=== PATIENT | female | born 1945 | race Hispanic/Latino ===

== ENCOUNTER 2017-03-31 18:43 | Inpatient (IN) | payer MEDICARE, OTHER ==
--- NOTE | 2017-03-31 19:45 | ED PDOC ---
Arrival/HPI - General Historian: Patient, Family - History of Present Illness Time/Duration: 1 week Symptom Onset: Gradual Symptom Course: Worsening - General Chief Complaint: Psychiatric Evaluation Time Seen by Provider: 03/31/17 18:46 - History of Present Illness Narrative History of Present Illness (Text): 03/31/17 19:38 This is a 72 year old female with PMHX CHF with low EF, hypertension, diabetes, COPD, hyperlipidemia who comes in for evaluation of visual hallucinations. The hallucinations began one week ago but have since worsened. Patient complaining of unspecified entities coming to the back of her recliner and hitting that area. Patient also has intermittent unintelligible auditory hallucinations. Patient complaining of dry cough and chronic urinary frequency. Patient denies any recent fever, chills, abdominal pain, dysuria. Patient complaining of headache localized around the top of her head. Patient states that she recently began a new medication for her diabetic neuropathy by her PMD Dr. Sawyer Vicente. She began the drug a couple of weeks ago. Patient has never experienced hallucinations in the past prior to this. Per patient and her sister, yesterday they went to [facility] stand- alone ER in [place] where she was transferred to [facility] for psychiatric evaluation. The patient's sister states that the psychiatrist told the staff to discharge her from [facility]'s ED. PMH: CHF with low EF, hypertension, diabetes, COPD, hyperlipidemia PSHx: Bilateral cataract surgery Allergies: NKDA Social: Former smoker, quit in 2013. Denies alcohol, drugs. PMD: Dr. Sawyer Vicente ([facility]) Past Medical History - Provider Review Nursing Documentation Reviewed: Yes - Infectious Disease Hx of Infectious Diseases: None - Tetanus Immunization Tetanus Immunization: Unknown - Cardiac Hx Cardiac Disorders: Yes Hx Circulatory Problems: Yes Hx Congestive Heart Failure: Yes Hx Hypertension: Yes - Pulmonary Hx Respiratory Disorders: Yes Hx Bronchitis: Yes Hx Chronic Obstructive Pulmonary Disease (COPD): Yes Hx Pneumonia: Yes - Neurological Hx Neurological Disorder: Yes - HEENT Hx HEENT Disorder: Yes (H/O OF EAR INFECTION RIGHT,PERFORATED EARDRUM) Hx Deafness: Yes (MORE ON LEFT) - Renal Hx Renal Disorder: No - Endocrine/Metabolic Hx Endocrine Disorders: No Hx Hypothyroidism: Yes - Hematological/Oncological Hx Blood Disorders: No - Integumentary Hx Dermatological Disorder: No - Musculoskeletal/Rheumatological Hx Falls: Yes - Gastrointestinal Hx Gastrointestinal Disorders: Yes (GASTRITIS) - Genitourinary/Gynecological Hx Genitourinary Disorders: No - Psychiatric Hx Psychophysiologic Disorder: No (SMOKES 1.5PPD) Hx Depression: Yes Hx Emotional Abuse: No Hx Physical Abuse: No Hx Substance Use: No - Surgical History Hx Cardiac Catheterization: Yes - Anesthesia Hx Anesthesia: Yes Hx Anesthesia Reactions: No Hx Malignant Hyperthermia: No - Suicidal Assessment Feels Threatened In Home Enviroment: No Family/Social History - Physician Review Nursing Documentation Reviewed: Yes Family/Social History: Unknown Family HX Smoking Status: Former Smoker Hx Alcohol Use: No Hx Substance Use: No Allergies/Home Meds Allergies/Adverse Reactions: Allergies No Known Allergies Allergy (Verified 08/05/16 19:51) Home Medications: Home Meds Medication Instructions Recorded Confirmed Unobtainable 08/05/16 03/31/17 Review of Systems - Physician Review All systems were reviewed & negative as marked: Yes - Review of Systems Constitutional: Normal. absent: Fevers Eyes: Normal ENT: Normal Respiratory: Cough (dry). absent: SOB Cardiovascular: Normal. absent: Chest Pain Gastrointestinal: Normal. absent: Abdominal Pain Genitourinary Female: Normal, Frequency (chronic). absent: Dysuria Musculoskeletal: Normal Skin: Normal Neurological: Headache (localized on top of the head) Endocrine: Normal Hemo/Lymphatic: Normal Psychiatric: Other (visual and auditory hallucinations) Physical Exam Vital Signs Reviewed: Yes Temperature: Afebrile Blood Pressure: Hypotensive Pulse: Regular Respiratory Rate: Normal Appearance: Positive for: Comfortable Pain Distress: None Mental Status: Positive for: Alert and Oriented X 3, other (actively hallucinating) - Systems Exam Head: Present: Atraumatic, Normocephalic Pupils: Present: Sluggish Extroacular Muscles: Present: EOMI Conjunctiva: Present: Normal Mouth: Present: Moist Mucous Membranes Neck: Present: Normal Range of Motion Respiratory/Chest: Present: Clear to Auscultation, Good Air Exchange. No: Accessory Muscle Use Cardiovascular: Present: Regular Rate and Rhythm, Normal S1, S2 Abdomen: Present: Normal Bowel Sounds. No: Tenderness, Distention Back: No: CVA Tenderness Upper Extremity: Present: Normal Inspection, NORMAL PULSES. No: Edema Lower Extremity: Present: Edema (bilateral), NORMAL PULSES, Other (chronic venous stasis changes bilaterally). No: CALF TENDERNESS Neurological: Present: GCS=15, CN II-XII Intact Skin: Present: Warm, Dry. No: Rashes Psychiatric: Present: Alert, Oriented x 3, Hallucinations Vital Signs Temp Pulse Resp BP Pulse Ox 03/31/17 19:32 97.8 F 79 18 93/58 L 99 Medical Decision Making ED Course and Treatment: 03/31/17 21:02 Patient Seen With Resident: In agreement with resident note and more details are present in their notes. Patient was seen and evaluated with resident, came up with plan and treatment together. (Anshu He DO) 03/31/17 19:54 CBC, CMP, Urinalysis, urine cultures, serum alcohol, Urine Drug Screen, Troponin I, EKG, Portable Chest X-ray, CT Head w.o. contrast Portable Chest X-ray: IMPRESSION: No focal consolidation, significant pleural effusion, or definite pneumothorax identified. EKG showing sinus rhythm with 1st degree AV block. Blunting of the T-waves. No ST segment elevation or depression. 1st degree AV block is also noted on EKG from prior visit. 03/31/17 22:48 CT Head w.o. contrast: IMPRESSION: No acute intracranial hemorrhage, or suspicious mass effect. Given Kdurr 40 mEQ for hypokalemia. (Jordan Calle) - Lab Interpretations Lab Results: 03/31/17 19:50 03/31/17 19:50 Lab Results 03/31/17 19:50: Alcohol, Quantitative < 10 03/31/17 19:50: Sodium 139, Potassium 3.2 L, Chloride 102, Carbon Dioxide 26, Anion Gap 14, BUN 14, Creatinine 0.9, Est GFR ( Amer) > 60, Est GFR (Non- Af Amer) > 60, Random Glucose 165 H, Calcium 9.0, Total Bilirubin 0.7, AST 81 H , ALT 76 H, Alkaline Phosphatase 110, Troponin I 0.01 D, Total Protein 6.6, Albumin 3.8, Globulin 2.8, Albumin/Globulin Ratio 1.4 03/31/17 19:50: WBC 6.6 D, RBC 3.96, Hgb 12.3, Hct 36.3, MCV 91.7, MCH 31.1, MCHC 33.9, RDW 13.9, Plt Count 227, MPV 10.1, Gran % 78.6 H, Lymph % (Auto) 13.0 L, [place] % (Auto) 6.4 H, Eos % (Auto) 1.7, Baso % (Auto) 0.3, Gran # 5.20, Lymph # 0.9 L, [place] # 0.4, Eos # 0.1, Baso # 0.02 - RAD Interpretation Radiology Orders: 03/31/17 19:32 HEAD W/O CONTRAST [CT] Stat CHEST PORTABLE [RAD] Stat - Medication Orders Current Medication Orders: Sodium Chloride (Sodium Chloride 0.9%) 1,000 mls @ 100 mls/hr IV .Q10H GENESIS Discontinued Medications Potassium Chloride (K-Dur 20 Meq Er Tab) 40 meq PO STAT STA Stop: 03/31/17 20:40 Disposition/Present on Arrival - Present on Arrival Any Indicators Present on Arrival: No History of DVT/PE: No History of Uncontrolled Diabetes: No Urinary Catheter: No History of Decub. Ulcer: No History Surgical Site Infection Following: None - Disposition Have Diagnosis and Disposition been Completed?: Yes Disposition Time: 23:00 - Disposition Diagnosis: Visual hallucinations Condition: UNKNOWN Referrals: Sawyer Vicente MD [Primary Care Provider] - Follow up with primary Forms: [employer] (Micronesian)
--- NOTE | 2017-03-31 20:00 | RAD ---
HISTORY: r/o infiltrate COMPARISON: Chest x-ray performed 08/05/16. TECHNIQUE: Chest, one view. FINDINGS: Examination limited by habitus. LUNGS: No focal consolidation. Please note that chest x-ray has limited sensitivity for the detection of pulmonary masses. PLEURA: No significant pleural effusion identified. No definite pneumothorax . CARDIOVASCULAR: The cardiomediastinal silhouette appears within normal limits of size. OSSEOUS STRUCTURES: No acute osseous abnormality identified. VISUALIZED UPPER ABDOMEN: Unremarkable. OTHER FINDINGS: None. IMPRESSION: No focal consolidation, significant pleural effusion, or definite pneumothorax identified.
[2017-03-31 20:06] LABS: BASO # 0.02 K/mm3 (0.0-2.0); BASO % 0.3 % (0.0-3.0); EOS # 0.1 (0.0-0.7); EOS % 1.7 % (1.5-5.0); GRAN # 5.2 (1.4-6.5); GRAN % 78.6 % (50.0-68.0); HEMATOCRIT 36.3 % (36.0-48.0); LYMPH # 0.9 (1.2-3.4); MEAN CELL VOLUME 91.7 fl (80.0-105.0); MEAN CORPUSCULAR HEMOGLOBIN 31.1 pg (25.0-35.0); MEAN CORPUSCULAR HGB CONC 33.9 g/dl (31.0-37.0); MEAN PLATELET VOLUME 10.1 fl (7.0-11.0); MONO # 0.4 (0.1-0.6); MONO % 6.4 % (1.0-6.0); RED CELL DISTRIBUTION WIDTH 13.9 % (11.5-14.5); WHITE BLOOD COUNT 6.6 10^3/ul (4.5-11.0)
[2017-03-31 20:32] LABS: ALB/GLOB RATIO 1.4 (1.1-1.8); ALKALINE PHOSPHATASE 110 U/L (38-126); ALT/SGPT 76 U/L (7-56); AST/SGOT 81 U/L (14-36); BILIRUBIN,TOTAL 0.7 mg/dL (0.2-1.3); BLOOD UREA NITROGEN 14 mg/dL (7-21); CARBON DIOXIDE 26 mmol/L (21-33); CHLORIDE 102 mmol/L (98-107); GFR AFRICAN-AMERICAN > 60; GLUCOSE,RANDOM 165 mg/dL (70-110); POTASSIUM 3.2 mmol/L (3.6-5.0); SODIUM 139 mmol/L (132-148); TOTAL PROTEIN 6.6 g/dL (5.8-8.3)
[2017-03-31] MEDS ORDERED: Potassium Chloride 20 mEq ER Tab PO STA (20:39)
[2017-03-31 20:51] LABS: TROPONIN I 0.01 ng/mL
[2017-03-31] MEDS: Sodium Chloride 0.9% 1,000 ML IV SCH (22:00)
--- NOTE | 2017-03-31 22:35 | CT ---
EXAM: CT Head Without Intravenous Contrast CLINICAL HISTORY: 72 years old, female; Signs and symptoms; Patient HX: R/O ich TECHNIQUE: Axial computed tomography images of the head/brain without intravenous contrast. All CT scans at this facility use one or more dose reduction techniques, viz.: automated exposure control; ma/kV adjustment per patient size (including targeted exams where dose is matched to indication; i.e. head); or iterative reconstruction technique. COMPARISON: CT - HEAD W/O CONTRAST 08/05/2016 9:01:29 PM FINDINGS: Brain: No acute intracranial hemorrhage. Age-appropriate periventricular white matter disease. No edema. Ventricles: Age-appropriate ventriculomegaly. Bones: No acute displaced fracture. Sinuses: Unremarkable as visualized. No acute sinusitis. Mastoid air cells: Unremarkable as visualized. No mastoid effusion. IMPRESSION: No acute intracranial hemorrhage, or suspicious mass effect.
--- NOTE | 2017-04-01 01:11 | ED PDOC ---
Physical Exam Vital Signs Temp Pulse Resp BP Pulse Ox 04/01/17 01:00 68 18 114/48 L 97 03/31/17 23:00 75 18 117/49 L 98 03/31/17 21:00 77 18 115/58 L 98 03/31/17 19:32 97.8 F 79 18 93/58 L 99 Medical Decision Making ED Course and Treatment: 03/31/17 23:00 Case endorsed to me by Dr. He, pending urinalysis, re-eval, and final disposition. 04/01/17 01:[address] Adonay Vicente, who is aware and agrees with plan. Accepts pt in to his service. Pt will go to remote telemetry observation for AMS.and uti 04/01/17 05:00 - Lab Interpretations Lab Results: 03/31/17 19:50 03/31/17 19:50 Lab Results 04/01/17 01:20: Urine Color Yellow, Urine Appearance Slight-cloudy, Urine pH 6.0 , Ur Specific Saucier 1.020, Urine Protein 30 H, Urine Glucose (UA) Negative, Urine Ketones Trace H, Urine Blood Trace-intact H, Urine Nitrate Positive H, Urine Bilirubin Negative, Urine Urobilinogen 0.2, Ur Leukocyte Esterase Negative , Urine RBC 0 - 2, Urine WBC 1 - 3, Ur Epithelial Cells 0 - 2, Urine Bacteria Many 04/01/17 01:20: Urine Opiates Screen Negative, Urine Methadone Screen Negative, Ur Barbiturates Screen Negative, Ur Phencyclidine Scrn Negative, Ur Amphetamines Screen Negative, U Benzodiazepines Scrn Negative, U Oth Cocaine Metabols Negative, U Cannabinoids Screen Negative 03/31/17 19:50: Alcohol, Quantitative < 10 03/31/17 19:50: Sodium 139, Potassium 3.2 L, Chloride 102, Carbon Dioxide 26, Anion Gap 14, BUN 14, Creatinine 0.9, Est GFR ( Amer) > 60, Est GFR (Non- Af Amer) > 60, Random Glucose 165 H, Calcium 9.0, Total Bilirubin 0.7, AST 81 H , ALT 76 H, Alkaline Phosphatase 110, Troponin I 0.01 D, Total Protein 6.6, Albumin 3.8, Globulin 2.8, Albumin/Globulin Ratio 1.4 03/31/17 19:50: WBC 6.6 D, RBC 3.96, Hgb 12.3, Hct 36.3, MCV 91.7, MCH 31.1, MCHC 33.9, RDW 13.9, Plt Count 227, MPV 10.1, Gran % 78.6 H, Lymph % (Auto) 13.0 L, [place] % (Auto) 6.4 H, Eos % (Auto) 1.7, Baso % (Auto) 0.3, Gran # 5.20, Lymph # 0.9 L, [place] # 0.4, Eos # 0.1, Baso # 0.02 - RAD Interpretation Radiology Orders: 03/31/17 19:32 HEAD W/O CONTRAST [CT] Stat CHEST PORTABLE [RAD] Stat - Medication Orders Current Medication Orders: Acetaminophen (Tylenol 325mg Tab) 650 mg PO Q4H PRN PRN Reason: Pain, Mild (1-3) Sodium Chloride (Sodium Chloride 0.9%) 1,000 mls @ 100 mls/hr IV .Q10H GENESIS Last Admin: 03/31/17 22:00 Dose: 100 mls/hr Ceftriaxone Sodium (Rocephin 1 Gram Ivpb) 1 gm in 100 mls @ 200 mls/hr IVPB STAT STA PRN Reason: Protocol Stop: 04/01/17 02:18 Sodium Chloride (Sodium Chloride 0.9%) 1,000 mls @ 100 mls/hr IV .Q10H STA Stop: 04/01/17 12:10 Discontinued Medications Potassium Chloride (K-Dur 20 Meq Er Tab) 40 meq PO STAT STA Stop: 03/31/17 20:40 Last Admin: 03/31/17 20:00 Dose: 40 meq Disposition/Present on Arrival - Present on Arrival Any Indicators Present on Arrival: No History of DVT/PE: No History of Uncontrolled Diabetes: No Urinary Catheter: No History of Decub. Ulcer: No History Surgical Site Infection Following: None - Disposition Have Diagnosis and Disposition been Completed?: Yes Diagnosis: Visual hallucinations, UTI (urinary tract infection) Disposition: HOSPITALIZED Disposition Time: 02:00 Patient Problems: Current Active Problems Problem Status Onset Visual hallucinations Acute Condition: GOOD
[2017-04-01 01:32] LABS: URINE BILIRUBIN NEGATIVE (NEGATIVE); URINE BLOOD TRACE-INTACT (NEGATIVE); URINE GLUCOSE (UA) NEGATIVE (NEGATIVE); URINE KETONE TRACE mg/dL (NEGATIVE); URINE LEUKOCYTE ESTERASE NEGATIVE Leu/uL (NEGATIVE); URINE PROTEIN 30 mg/dL (<30 mg/dL); URINE UROBILINOGEN 0.2 E.U./dL (<1 E.U./dL)
[2017-04-01 01:43] LABS: URINE APPEARANCE SLIGHT-CLOUDY (CLEAR); URINE COLOR YELLOW (YELLOW)
[2017-04-01] MEDS ORDERED: cefTRIAXone 1 gm 1 GM/100 ML BAG IVPB STA (01:49)
[2017-04-01 01:58] LABS: URINE BACTERIA MANY (NEG); URINE EPITHELIAL CELLS 0 - 2 /hpf (0-5); URINE RBC 0 - 2 /hpf (0-2)
[2017-04-01 04:09] VITALS: BMI 47.2
[2017-04-01] MEDS: Sodium Chloride 0.9% 1,000 ML IV STA (10:59)
[2017-04-01] MEDS: Sodium Chloride 0.9% 1,000 ML IV SCH ×2 (11:02→18:29)
--- NOTE | 2017-04-01 16:23 | CARD ---
APPROVED REPORT EKG Measurement Heart [id number] <Conclusion> Sinus rhythm with 1st degree AV block Nonspecific intraventricular conduction delay Nonspecific ST and T wave abnormality Abnormal ECG
--- NOTE | 2017-04-01 17:37 | HP ---
HISTORY OF PRESENT ILLNESS: The patient is a 72-year-old woman with past medical history of hypertension, COPD, type 2 diabetes mellitus with diabetic neuropathy, hyperlipidemia, who presented to [facility] Emergency Department with a several day history of auditory and visual hallucinations. The patient was recently seen in her PMD's office for evaluation for worsening diabetic neuropathy and was started on Neurontin. The patient reports that she took the Neurontin as directed and shortly thereafter developed visual hallucinations. Patient reports seeing multiple insects consisting of praying mantises and spiders in her apartment. Given her hallucinations, the patient had notified her sister who brought her to [facility] Department for evaluation. She was admitted and evaluated by the psychiatric team and was subsequently discharged after she was told she had an unremarkable workup. Upon discharge, the patient noted that her symptoms had persisted and as such opted for reevaluation at [facility] Emergency Department. Upon arrival to the Emergency Department at [facility], she was noted to be afebrile and hemodynamically stable; however, had persistent hallucinations. Per review of the chart, she was endorsing seeing multiple spiders and insects crawling on the ceiling and on the bed rails. Given her hallucinations, she was admitted to the telemetry cabrera for further evaluation of her altered mental status. PAST MEDICAL HISTORY: As per HPI also nonobstructive CAD and CHF (with ejection fraction of 15 to 20%). PAST SURGICAL HISTORY: As per HPI. ALLERGIES: NO KNOWN DRUG ALLERGIES. MEDICATIONS: Aspirin 81 mg p.o. daily, Lopressor 25 mg p. o. b.i.d, Lipitor 40 mg p.o. daily, Lasix 40 mg p.o. daily, Lisinopril 10 mg p.o. daily, metformin 500 mg p.o. b.i.d. and Neurontin 100 mg p.o. t.i.d. FAMILY HISTORY: Noncontributory. SOCIAL HISTORY: The patient denies any toxic habits. REVIEW OF SYSTEMS: A 14-point review of systems is negative except as per HPI. PHYSICAL EXAMINATION: VITAL SIGNS: Temperature 97.8, pulse 72, blood pressure 106/46, respiratory rate 20, and oxygen saturation 95% on room air. GENERAL: Obese woman sitting up comfortably in bed, in no apparent distress. HEENT: PERRLA. EOMI. No scleral icterus. No conjunctival pallor. NECK: No JVD. No bruits. LUNGS: Clear to auscultation. CARDIOVASCULAR: Regular rate and rhythm. Normal S1 and S2. ABDOMEN: Normoactive bowel sounds. Soft, nontender, and nondistended. EXTREMITIES: Trace lower extremity edema bilaterally. NEUROLOGIC: Awake, alert and oriented x3. No focal motor deficits. The patient endorses persistent visual hallucinations. LABORATORY DATA: CBC reviewed, unremarkable. CMP reviewed, unremarkable with the exception of potassium at 3.2. Urine toxicology screen is negative. IMAGING STUDIES: 1. Chest x-ray demonstrates no acute pathology. 2. CT of the head without contrast demonstrates no acute intracranial pathology. ASSESSMENT: The patient is a 72-year-old woman with multiple medical comorbidities including type 2 diabetes mellitus with diabetic neuropathy and hypothyroidism, who presented to [facility] with a several day history of auditory and visual hallucinations, which started after being initiated on Neurontin. PLAN: 1. Delirium: Consider secondary to medication induced. The patient reports that her last dose of Neurontin was three days ago. The patient further endorses that her hallucinations are gradually subsiding, however, have not fully resolved. Dr. Goodrich of neurology has been consulted for further evaluation and recommendations and Dr. Sima Gómez of psychiatry has also been consulted for evaluation. 2. Nonobstructive CAD: The patient remains chest pain free. Continue with aspirin 81 mg p.o. daily, Lipitor 40 mg p.o. daily, and Lopressor 25 mg p.o. b.i.d. 3. CHF. The patient remains clinically euvolemic. Continue with current medications. 4. Type 2 diabetes mellitus. Continue with metformin 500 mg p.o. b.i.d. 5. COPD. The patient remains with stable respiratory status. Continue with supplemental oxygen on bronchodilators as needed. 6. Hyperlipidemia. Continue with Lipitor 40 mg p.o. daily. 7. Hypothyroidism. Continue with Synthroid 50 mcg p.o. daily. 8. Hypertension. Blood pressure remains controlled. Continue with current medications. 9. Intertrigo. Continue with nystatin topical suspension. 10. GI prophylaxis not indicated as patient is eating. DVT prophylaxis not indicated as patient is ambulatory. CODE STATUS: FULL CODE. Maurilio Vicente MD [facility] # [id number]
[2017-04-01] MEDS: Nystatin-Triamcinolone Cream(30 gm) TOP SCH (18:27)
[2017-04-02] MEDS: Sodium Chloride 0.9% 1,000 ML IV STA (00:30)
[2017-04-02] MEDS: Levothyroxine 50 MCG TAB PO SCH (05:53)
[2017-04-02 06:52] LABS: ALB/GLOB RATIO 1.3 (1.1-1.8); ALKALINE PHOSPHATASE 104 U/L (38-126); ALT/SGPT 76 U/L (7-56); AST/SGOT 63 U/L (14-36); BILIRUBIN,TOTAL 0.5 mg/dL (0.2-1.3); BLOOD UREA NITROGEN 9 mg/dL (7-21); CALCIUM 8.8 mg/dL (8.4-10.5); CARBON DIOXIDE 26 mmol/L (21-33); CHLORIDE 106 mmol/L (98-107); GFR AFRICAN-AMERICAN > 60; GLUCOSE,RANDOM 101 mg/dL (70-110); POTASSIUM 3.5 mmol/L (3.6-5.0); SODIUM 141 mmol/L (132-148); TOTAL PROTEIN 6.2 g/dL (5.8-8.3)
[2017-04-02 07:03] LABS: BASO # 0.04 K/mm3 (0.0-2.0); BASO % 0.7 % (0.0-3.0); EOS # 0.3 (0.0-0.7); GRAN % 68.7 % (50.0-68.0); HEMATOCRIT 34.9 % (36.0-48.0); LYMPH % 17.9 % (22.0-35.0); MEAN CELL VOLUME 93.6 fl (80.0-105.0); MEAN CORPUSCULAR HEMOGLOBIN 30.8 pg (25.0-35.0); MEAN PLATELET VOLUME 10.5 fl (7.0-11.0); MONO # 0.5 (0.1-0.6); MONO % 7.7 % (1.0-6.0); RED CELL DISTRIBUTION WIDTH 14.6 % (11.5-14.5); WHITE BLOOD COUNT 5.8 10^3/ul (4.5-11.0)
[2017-04-02] MEDS: Nystatin-Triamcinolone Cream(30 gm) TOP SCH (10:35)
--- NOTE | 2017-04-02 12:21 | PN ---
DAILY PROGRESS NOTE SUBJECTIVE: The patient is seen and examined at bedside on the general medical cabrera. No acute events overnight. She remains afebrile and hemodynamically stable. The patient continues to endorse visual hallucinations, but again these are continuing to improve. Otherwise, she states she feels okay and largely offers no complaints. OBJECTIVE: VITAL SIGNS: Temperature 98.7, pulse 69, blood pressure 120/72, respiratory rate 20, oxygen saturation 96% on room air. GENERAL: No apparent distress. HEENT: PERRL. EOMI. No scleral icterus. No conjunctival pallor. NECK: No JVD. No bruits. LUNGS: Clear to auscultation. CARDIOVASCULAR: Regular rate and rhythm. Normal S1 and S2. ABDOMEN: Normoactive bowel sounds, soft, nontender, and nondistended. EXTREMITIES: Trace lower extremity edema bilaterally. NEUROLOGIC: Awake, alert, and oriented x3. No focal motor deficits. LABORATORY DATA: CBC reviewed and unremarkable. CMP reviewed and unremarkable with the exception of potassium of 3.5. ASSESSMENT: The patient is a 72-year-old woman with multiple medical comorbidities including type 2 diabetes mellitus with diabetic neuropathy, and hypothyroidism, who presented to [facility] with a several day history of auditory and visual hallucinations, which started after being initiated on Neurontin for treatment of her underlying diabetic neuropathy. PLAN: 1. Delirium, consider secondary to medication induced. The patient has been off Neurontin for four days at this point and states that her hallucinations are slowly improving. Input from Dr. Goodrich of neurology and Dr. Sima Gómez of psychiatric is pending. 2. Nonobstructive CAD. The patient remains chest pain-free. Continue with aspirin 81 mg p.o. daily, Lipitor 40 mg p.o daily, and Lopressor 25 mg p.o. b.i.d. 3. CHF. The patient remains clinically euvolemic. Continue with current medications. 4. Type 2 diabetes mellitus. Continues with metformin 500 mg p.o. b.i.d. 5. COPD. Continue with supplemental oxygen and bronchodilators as needed. 6. Hyperlipidemia. Continue with Lipitor 40 mg p.o. daily. 7. Hypothyroidism. Continue with Synthroid 50 mcg p.o. daily. 8. Hypertension. Blood pressure remains stable. Continue with current medications. 9. Intertrigo. Continue with nystatin. 10. Prophylaxis. GI prophylaxis not indicated as patient is eating. DVT prophylaxis not indicated as patient is ambulatory. CODE STATUS: FULL CODE. Maurilio Vicente MD
--- NOTE | 2017-04-02 18:45 | CON ---
HISTORY OF PRESENT ILLNESS: The patient is a 72-year-old female with past medical history of CHF, low ejection fraction, hypertension, diabetes, COPD, and hyperlipidemia. The patient was admitted on the medical site for evaluation of change in mental status as well as visual hallucinations. Psych consult was called for visual hallucinations and change in mental status. The patient was seen and examined today. The patient presented to be sleepy, easily arousable. The patient had difficulty to stay focused during the conversation and had circumstantial and tangential thought process. The patient also had visual hallucinations, which are well formed. The patient says that she could see praying mantis as well as lot of bugs and spiders on the ceiling as well as on the door. The patient is able to understand that these are visual hallucinations and they are not real, but the patient said what they can see, but I still see them. The patient reported that she started to experience visual hallucinations about a week ago after new medication was started for her. As per Dr. Maurilio Vicente's note, Neurontin was started about a week ago. This advertising copy writer checked side effect profile. Visual hallucinations are not one of them. The patient denies being depressed. The patient denied thoughts of killing herself or others. The patient denied any substance abuse or denied smoking. The patient denied using drugs and alcohol as well as benzodiazepines. The patient denied past psychiatric history, lives in [place] with her family. The patient said nobody in the family sees spiders or praying mantis or any bugs but her. The patient "everybody thinks that I'm crazy." The patient said that she has history of falls and the patient said that she has her equilibrium affected. The patient said that for past month she had about 10 falls. The patient does not have any tremor, does not have any stiffness, but this advertising copy writer would like to rule out neurological deficit as well as Lewy body dementia because the patient also complained of memory problems. Medication list includes Tylenol, aspirin, Lipitor, Rocephin, Synthroid, Zestril, Glucophage, as well as Lopressor, nystatin, Seroquel will be started at 12.5 mg at the nighttime. The patient also complained of foul smelling urine, but denied any pain upon urination, but the patient was complaining of frequent urination. PHYSICAL EXAMINATION: VITAL SIGNS: Stable. Temperature 98.2, pulse is 73, blood pressure 150/90, respirations 21, oxygen saturation is 95%. LABORATORY DATA: Labs reviewed. Most recent from today, hemoglobin and hematocrit 11.5 and 34.9. Chemistry, potassium 3.5. AST and ALT 63 and 76. B12 is 211 and TSH 8.18. Urinalysis showed nitrites, blood, ketones and proteins, bacteria many, leukocyte esterase negative. Toxicology is negative. MENTAL STATUS EXAMINATION: The patient appears to be sleepy but easily arousable, difficult to stay focused and concentrated during the interview, intermittent eye contact. Speech was overproductive, not pressured. Thought process is overinclusive as well as circumstantial and tangential. Mood described "I'm not depressed." Affect is labile. Thought content, the patient denied auditory hallucinations, but the patient has visual hallucinations of bugs as well as praying mantis as well as spiders. At the same time, the patient has some sensation that they are crawling on her skin. The patient denied thoughts of harming herself or others, denied intent or plan. Insight and judgment is improving. Impulses are well controlled. IMPRESSION: This advertising copy writer would like to rule out delirium due to urinary tract infection or some neurological deficit because visual hallucinations as well as tactile hallucinations related to the medical issues either drug related issues. This advertising copy writer would also like to rule out Lewy body dementia. The patient has history of falls, more than 10 for past month. The patient also has well-formed visual hallucinations. PLAN: Continue current management. This advertising copy writer discussed case with the patient's primary care physician Dr. Vicente. Seroquel 12.5 mg will be started at the nighttime. This advertising copy writer educated the patient about risk, benefits and alternatives of the medication. Meanwhile, continue current therapy, physical therapy evaluation. Case was discussed with the primary care physician. We will follow up and advise accordingly. Thanking you very much for letting me to participate in care of your patient. Sima Gómez MD
--- NOTE | 2017-04-03 01:14 | CP.PCM.CON ---
<AsafStas gonzales - Last Filed: 04/03/17 01:02> History of Present Illness - History of Present Illness History of Present Illness: Neurology Consult Note for Dr. Goodrich service Consulted for AMS HPI: This is a 72 yo F with PMH of CHF with low EF (15-20%), HTN, DM, COPD, HLD, and CAD who presented to [facility] with complaint of audiovisual hallucinations after being started on neurontin for diabetic neuropathy. Patient reports specific, persistent visual hallucinations in the form of spiders and preying mantis' swarming around her in any given room she is in. The auditory hallucinations were reported as unintelligible voices. Today, at time of exam, patient reports resolution of auditory hallucinations, and significant improvement (but not resolution) of visual hallucinations. Patient is awake and alert, and is oriented to self, location, and time. Denies acute complaints, including fevers/chills, vision changes, dizziness/room-spinning, chest pain, shortness of breath, nausea/emesis, abd pain, diarrhea/constipation , dysuria/hematuria, focal weakness or paresthesias, SI/HI, or new audiovisual hallucinations. All other ROS in 12-point system review negative. PMH: as above PSH: Bilateral cataract surgery, Cardiac cath SHx: Admits to former tobacco use (~1.5 ppd/day, quit in 2013), Denies EtOH/ illicits/IVDA FHx: denies PMD: Dr. Vicente Review of Systems - Review of Systems All systems: reviewed and no additional remarkable complaints except (as per HPI ) Past Patient History - Infectious Disease Hx of Infectious Diseases: None - Tetanus Immunizations Tetanus Immunization: Unknown - Past Social History Smoking Status: Former Smoker - CARDIAC Hx Circulatory Problems: Yes (R/T DM) Hx Congestive Heart Failure: Yes Hx Hypertension: Yes - PULMONARY Hx Bronchitis: Yes Hx Chronic Obstructive Pulmonary Disease (COPD): Yes Hx Pneumonia: Yes - NEUROLOGICAL Hx Neurological Disorder: Yes - HEENT Other/Comment: [place] - RENAL Hx Chronic Kidney Disease: No - ENDOCRINE/METABOLIC Hx Diabetes Mellitus Type 2: Yes - HEMATOLOGICAL/ONCOLOGICAL Hx Blood Disorders: No - INTEGUMENTARY Hx Dermatological Problems: No - MUSCULOSKELETAL/RHEUMATOLOGICAL Hx Falls: Yes Hx Unsteady Gait: Yes - GASTROINTESTINAL Hx Gastrointestinal Disorders: Yes (GASTRITIS) - GENITOURINARY/GYNECOLOGICAL Hx Incontinence: Yes - PSYCHIATRIC Hx Anxiety: Yes Hx Depression: Yes Hx Hallucinations: Yes (CURRENTLY) Hx Substance Use: No - SURGICAL HISTORY Hx Cardiac Catheterization: Yes - ANESTHESIA Hx Anesthesia: Yes Hx Anesthesia Reactions: No Hx Malignant Hyperthermia: No Meds Allergies/Adverse Reactions: Allergies Allergy/AdvReac Type Severity Reaction Status Date / Time No Known Allergies Allergy Verified 08/05/16 19:51 - Medications Medications: Current Medications Acetaminophen (Tylenol 325mg Tab) 650 mg PO Q4H PRN PRN Reason: Pain, Mild (1-3) Aspirin (Aspirin Chewable) 81 mg PO DAILY [facility] Last Admin: 04/02/17 09:23 Dose: 81 mg Atorvastatin Calcium (Lipitor) 40 mg PO DIN [facility] Last Admin: 04/02/17 18:08 Dose: 40 mg Ceftriaxone Sodium (Rocephin 1 Gram Ivpb) 1 gm in 100 mls @ 100 mls/hr IVPB DAILY [facility] PRN Reason: Protocol Levothyroxine Sodium (Synthroid) 50 mcg PO 0600 [facility] Last Admin: 04/02/17 05:53 Dose: 50 mcg Lisinopril (Zestril) 10 mg PO DAILY [facility] Last Admin: 04/02/17 09:21 Dose: 10 mg Metformin HCl (Glucophage) 500 mg PO BID [facility] Last Admin: 04/02/17 18:08 Dose: 500 mg Metoprolol Tartrate (Lopressor) 25 mg PO BID [facility] Last Admin: 04/02/17 18:07 Dose: 25 mg Nystatin/Triamcinolone Acetonide (Nystatin/Triamcinolone Cream) 0 ea TOP BID [facility] Last Admin: 04/02/17 10:35 Dose: 1 applic Quetiapine Fumarate (Seroquel) 12.5 mg PO [facility] PRN Reason: Protocol Last Admin: 04/02/17 22:01 Dose: 12.5 mg Physical Exam - Constitutional Appears: Well, Non-toxic, No Acute Distress - Head Exam Head Exam: ATRAUMATIC, NORMAL INSPECTION, NORMOCEPHALIC - Eye Exam Eye Exam: EOMI, Normal appearance, PERRL. absent: Conjunctival injection, Scleral icterus Pupil Exam: NORMAL ACCOMODATION, PERRL. absent: Fixed, Irregular, Unequal - ENT Exam ENT Exam: Mucous Membranes Moist. absent: Mucous Membranes Dry - Neck Exam Neck exam: Positive for: Full Rom, Normal Inspection. Negative for: Lymphadenopathy, Tenderness, Thyromegaly - Respiratory Exam Respiratory Exam: Decreased Breath Sounds (moderately decreased breath sounds in all strong, likely 2/2 body habitus +/- COPD), Prolonged Expiratory Phase. absent: Accessory Muscle Use, Chest Wall Tenderness, Clear to Auscultation Bilateral, Rales, Rhonchi, Wheezes, NORMAL BREATHING PATTERN - Cardiovascular Exam Cardiovascular Exam: REGULAR RHYTHM, RRR, +S1, +S2. absent: Bradycardia, Tachycardia, Irregular Rhythm, JVD, +S4 - GI/Abdominal Exam GI & Abdominal Exam: Normal Bowel Sounds, Soft. absent: Diminished Bowel Sounds , Distended, Firm, Hyperactive Bowel Sounds, Hypoactive Bowel Sounds, Rigid, Tenderness - Extremities Exam Extremities exam: Positive for: full ROM, normal inspection, pedal pulses present. Negative for: calf tenderness, pedal edema, tenderness Additional comments: skin changes consistent with chronic venous stasis changes - Back Exam Back exam: absent: CVA tenderness (L), CVA tenderness (R) - Neurological Exam Neurological exam: Alert, CN II-XII Intact, Oriented x3 (self, location, time) Additional comments: Motor and sensory grossly intact 5/5 strength in all extremities and 5/5 section cutter strength bilaterally Awake and alert, following all commands appropriately Moving all extremities spontaneously - Psychiatric Exam Additional comments: Normal affect, normal mood Not grossly anxious/agitated Visual hallucinations remain present, but able to distinguish between hallucinations and staff in room No SI/HI - Skin Skin Exam: Dry, Intact, Normal Color, Warm Results - Vital Signs Recent Vital Signs: Last Vital Signs Temp 98.4 F 04/02/17 16:00 Pulse 75 04/02/17 18:07 Resp 20 04/02/17 16:00 BP 128/89 04/02/17 18:07 Pulse Ox 95 04/02/17 16:00 - Labs Result Diagrams: 04/02/17 05:45 04/02/17 05:45 Assessment & Plan - Assessment and Plan (Free Text) Assessment: This is a 72 yo F with PMH of CHF with low EF (15-20%), HTN, DM, COPD , HLD, and CAD who presented to [facility] with complaint of audiovisual hallucinations after being started on neurontin for diabetic neuropathy. The patient's AMS is likely medication-induced in the setting of underlying vascular disease (HTN, HLD, and DM). Head CT negative for acute findings, and EKG notable for NSR with 1st degree AV block. Would continue to hold further admissions of gabapentin; can consider starting Cymbalta 30mg PO qHS as outpatient after current sx fully resolved. Would also recommend f/u with neurology as an outpatient. Plan: 1) Hold further Gabapentin due to suspected AMS 2/2 medication 2) Psych also on board, appreciate their recs 3) Can start Cymbalta 30mg PO qHS as outpatient 4) F/u with neurology as outpt 5) PT/OT Patient seen, reviewed, and discussed with attending, Dr. Goodrich Please reconsult if patient experiences any acute changes in condition. <Jeyson Goodrich - Last Filed: 04/03/17 10:18> Meds - Medications Medications: Current Medications Acetaminophen (Tylenol 325mg Tab) 650 mg PO Q4H PRN PRN Reason: Pain, Mild (1-3) Aspirin (Aspirin Chewable) 81 mg PO DAILY [facility] Last Admin: 04/03/17 09:25 Dose: 81 mg Atorvastatin Calcium (Lipitor) 40 mg PO DIN [facility] Last Admin: 04/02/17 18:08 Dose: 40 mg Ceftriaxone Sodium (Rocephin 1 Gram Ivpb) 1 gm in 100 mls @ 100 mls/hr IVPB DAILY [facility] PRN Reason: Protocol Last Admin: 04/03/17 09:26 Dose: 100 mls/hr Levothyroxine Sodium (Synthroid) 50 mcg PO 0600 [facility] Last Admin: 04/03/17 05:34 Dose: 50 mcg Lisinopril (Zestril) 10 mg PO DAILY [facility] Last Admin: 04/03/17 09:25 Dose: 10 mg Metformin HCl (Glucophage) 500 mg PO BID [facility] Last Admin: 04/03/17 09:25 Dose: 500 mg Metoprolol Tartrate (Lopressor) 25 mg PO BID [facility] Last Admin: 04/03/17 09:25 Dose: 25 mg Nystatin/Triamcinolone Acetonide (Nystatin/Triamcinolone Cream) 0 ea TOP BID [facility] Last Admin: 04/02/17 10:35 Dose: 1 applic Quetiapine Fumarate (Seroquel) 12.5 mg PO HS [facility] PRN Reason: Protocol Last Admin: 04/02/17 22:01 Dose: 12.5 mg Results - Vital Signs Recent Vital Signs: Last Vital Signs Temp 97.6 F 04/03/17 07:54 Pulse 61 04/03/17 09:25 Resp 20 04/03/17 07:54 BP 100/73 04/03/17 09:25 Pulse Ox 99 04/03/17 07:54 - Labs Result Diagrams: 04/03/17 05:20 04/03/17 05:20 Labs: Laboratory Results - last 24 hr 04/03/17 04/03/17 05:20 05:20 WBC 5.2 RBC 3.89 Hgb 11.9 L Hct 36.6 MCV 94.1 MCH 30.6 MCHC 32.5 RDW 14.7 H Plt Count 186 MPV 11.1 H Gran % 65.3 Lymph % (Auto) 20.5 L Grimes % (Auto) 8.7 H Eos % (Auto) 4.5 Baso % (Auto) 1.0 Gran # 3.37 Lymph # 1.1 L Grimes # 0.5 Eos # 0.2 Baso # 0.05 Sodium 138 Potassium 3.7 Chloride 106 Carbon Dioxide 28 Anion Gap 8 L BUN 8 Creatinine 0.9 Est GFR ( Amer) > 60 Est GFR (Non-Af Amer) > 60 Random Glucose 84 Calcium 8.7 Total Bilirubin 0.7 AST 55 H ALT 73 H Alkaline Phosphatase 101 Total Protein 6.2 Albumin 3.4 Globulin 2.8 Albumin/Globulin Ratio 1.2 Assessment & Plan - Assessment and Plan (Free Text) Plan: COULD CONSIDER CYMBALTA 30MG PO QHS FOR NEUROPATHIC PAIN FOR DIABETIC NEUROPATHY. EMG/NCV OF EXTREMITIES OUTPT TO ASSESS DEGREE OF NEUROPATHY. CHARLIE MORELAND Attending/Attestation - Attestation I have personally seen and examined this patient.: Yes I have fully participated in the care of the patient.: Yes I have reviewed all pertinent clinical information: Yes
[2017-04-03] MEDS: Levothyroxine 50 MCG TAB PO SCH (05:34)
[2017-04-03 06:17] LABS: BASO # 0.05 K/mm3 (0.0-2.0); EOS # 0.2 (0.0-0.7); EOS % 4.5 % (1.5-5.0); GRAN # 3.37 (1.4-6.5); GRAN % 65.3 % (50.0-68.0); HEMATOCRIT 36.6 % (36.0-48.0); LYMPH # 1.1 (1.2-3.4); LYMPH % 20.5 % (22.0-35.0); MEAN CELL VOLUME 94.1 fl (80.0-105.0); MEAN CORPUSCULAR HEMOGLOBIN 30.6 pg (25.0-35.0); MEAN CORPUSCULAR HGB CONC 32.5 g/dl (31.0-37.0); MEAN PLATELET VOLUME 11.1 fl (7.0-11.0); MONO # 0.5 (0.1-0.6); MONO % 8.7 % (1.0-6.0); RED CELL DISTRIBUTION WIDTH 14.7 % (11.5-14.5); WHITE BLOOD COUNT 5.2 10^3/ul (4.5-11.0)
[2017-04-03 06:28] LABS: ALKALINE PHOSPHATASE 101 U/L (38-126); ALT/SGPT 73 U/L (7-56); AST/SGOT 55 U/L (14-36); BILIRUBIN,TOTAL 0.7 mg/dL (0.2-1.3); BLOOD UREA NITROGEN 8 mg/dL (7-21); CALCIUM 8.7 mg/dL (8.4-10.5); CARBON DIOXIDE 28 mmol/L (21-33); CHLORIDE 106 mmol/L (95-110); GFR AFRICAN-AMERICAN > 60; GLUCOSE,RANDOM 84 mg/dL (70-110); POTASSIUM 3.7 mmol/L (3.6-5.0); SODIUM 138 mmol/L (132-148)
[2017-04-03 06:38] LABS: ALB/GLOB RATIO 1.2 (1.1-1.8); TOTAL PROTEIN 6.2 g/dL (5.8-8.3)
[2017-04-03] MEDS: cefTRIAXone 1 gm 1 GM/100 ML BAG IVPB SCH (09:26)
[2017-04-03] MEDS: Nystatin-Triamcinolone Cream(30 gm) TOP SCH ×2 (10:30→18:30)
--- NOTE | 2017-04-03 11:37 | PN ---
SUBJECTIVE: The patient was seen and examined at bedside on the general medical cabrera. No acute events overnight. She remains afebrile and hemodynamically stable. She continues to endorse improvement in her hallucinations stating that her auditory hallucinations have resolved and her visual hallucinations are improving. She reports that she still sees spiders on her door, but states that they are less in number and less aggressive in behavior as compared to prior. Otherwise she feels okay and denies any complaints. OBJECTIVE: VITAL SIGNS: Temperature 97.6, pulse 61, blood pressure 100/73, respiratory rate 20, oxygen saturation 99% on room air. GENERAL: Obese woman, lying in bed, in no apparent distress. HEENT: PERRL. EOMI. No scleral icterus. No conjunctival pallor. NECK: No JVD. No bruits. LUNGS: Clear to auscultation. CARDIOVASCULAR: Regular rate and rhythm. Normal S1 and S2. ABDOMEN: Normoactive bowel sounds, soft, nontender, and nondistended. EXTREMITIES: Trace lower extremity edema bilaterally. NEUROLOGIC: Awake, alert, and oriented x3. No focal motor deficits. LABORATORY DATA: CBC reviewed and unremarkable. CMP reviewed and unremarkable. Urine culture with Gram-negative rods, blood cultures with no growth to date. ASSESSMENT: The patient is a 72-year-old woman with multiple medical comorbidities including type 2 diabetes mellitus with diabetic neuropathy, hypothyroidism, COPD and hyperlipidemia who presented to [facility] with a several day history of auditory and visual hallucinations which started after being initiated on Neurontin for treatment of her underlying diabetic neuropathy which are presently resolving PLAN: 1. Delirium, consider secondary to medication induced versus secondary to underlying UTI. This patient does report gradual improvement in her hallucinations and has been off Neurontin for [address] Gómez of psychiatric and Dr. Goodrich of neurology noted and greatly appreciated. 2. Nonobstructive CAD. The patient remains chest pain free. Continue with aspirin 81 mg p.o. daily, Lipitor 40 mg p.o daily and Lopressor 25 mgp.o. b.i.d. 3. CHF. The patient remains clinically euvolemic. Continue with current medications as above. 4. Type 2 diabetes mellitus. Continues with metformin 500 mg p.o. b.i.d. 5. COPD. Continue with supplemental oxygen as needed. 6. Hyperlipidemia. Continue with Lipitor at 40 mg p.o. daily. 7. Hypothyroidism. Continue with Synthroid 50 mcg p.o. daily. 8. Hypertension. Blood pressure remains stable. Continue with her current medications. 9. Intertrigo. Continue with nystatin topical suspension. 10. Prophylaxis. GI prophylaxis not indicated as patient is eating. DVT prophylaxis not indicated as patient is ambulatory. CODE STATUS: FULL CODE. Maurilio Vicente MD MTDD
--- NOTE | 2017-04-03 20:02 | PN ---
DATE: 04/03/2017 SUBJECTIVE: The patient was followed up today. The patient was admitted for visual hallucinations, which would be related to the medication, initiation of Neurontin or urinary tract infection. The patient was started on Seroquel yesterday. Today, the patient was followed up. The patient still has episodes of confusion. The patient has difficulty to stay focused and concentrate. The patient still has visual hallucinations, but as per the patient, is improving. The patient was seen by Neurologist yesterday, Dr. Goodrich, input appreciated. The patient said that she had a good night's sleep and denied any side effects from the medication. PHYSICAL EXAMINATION: VITAL SIGNS: Stable. Temperature 98.1, pulse is 68, blood pressure 110/58, respirations 20, oxygen saturation is 95%. MEDICATIONS: Reviewed; Tylenol, aspirin, Lipitor, Rocephin, Synthroid, Zestril, metformin, Lopressor, nystatin, and Seroquel, which will be increased to 50 mg at the nighttime. LABORATORY DATA: Labs reviewed from today. Reports reviewed as well. As per Dr. Goodrich's note; symptoms are mostly related to medication induced and underlying vascular disease. Recommended to start Cymbalta 30 mg at the nighttime as an outpatient and follow up with outpatient. MENTAL STATUS EXAMINATION: The patient presented to be alert and oriented, pleasant and cooperative. The patient has still difficulty to concentrate and stay focused. Speech was overproductive and over intrusive. Thought process was circumstantial and tangential. The patient still has visual hallucinations, but the patient reported that it is much better, "they are not attacking me." What the patient meant is insects. Insight and judgment is improving. Impulses are well controlled. As per nursing staff report, the patient does not have any behavioral outbursts, seems to be improving. IMPRESSION: Altered mental status most likely related to the combination of the factors of urinary tract infection and new medications. PLAN: This typewriter operator automatic will increase the dose of Seroquel at the nighttime. The patient is on antibiotics right now. Hopefully, the patient will be doing better and we will follow up on this patient tomorrow and advise accordingly. Thank you very much for letting me participate in care of your patient. Sima Gómez MD [facility] # [id number]
[2017-04-04] MEDS: Levothyroxine 50 MCG TAB PO SCH (06:02)
[2017-04-04 07:08] LABS: ALB/GLOB RATIO 1.3 (1.1-1.8); ALKALINE PHOSPHATASE 91 U/L (38-126); ALT/SGPT 66 U/L (7-56); AST/SGOT 50 U/L (14-36); BILIRUBIN,TOTAL 0.4 mg/dL (0.2-1.3); BLOOD UREA NITROGEN 12 mg/dL (7-21); CALCIUM 8.4 mg/dL (8.4-10.5); CARBON DIOXIDE 27 mmol/L (21-33); CHLORIDE 106 mmol/L (98-107); GFR AFRICAN-AMERICAN > 60; GLUCOSE,RANDOM 117 mg/dL (70-110); POTASSIUM 3.9 mmol/L (3.6-5.0); SODIUM 140 mmol/L (132-148); TOTAL PROTEIN 5.5 g/dL (5.8-8.3)
[2017-04-04 07:18] LABS: BASO # 0.04 K/mm3 (0.0-2.0); BASO % 0.8 % (0.0-3.0); EOS # 0.3 (0.0-0.7); EOS % 5.4 % (1.5-5.0); GRAN # 3.02 (1.4-6.5); GRAN % 62.9 % (50.0-68.0); HEMATOCRIT 35.1 % (36.0-48.0); LYMPH % 21.3 % (22.0-35.0); MEAN CELL VOLUME 94.4 fl (80.0-105.0); MEAN CORPUSCULAR HEMOGLOBIN 30.4 pg (25.0-35.0); MEAN CORPUSCULAR HGB CONC 32.2 g/dl (31.0-37.0); MEAN PLATELET VOLUME 10.2 fl (7.0-11.0); MONO # 0.5 (0.1-0.6); MONO % 9.6 % (1.0-6.0); RED CELL DISTRIBUTION WIDTH 14.7 % (11.5-14.5); WHITE BLOOD COUNT 4.8 10^3/ul (4.5-11.0)
[2017-04-04] MEDS: cefTRIAXone 1 gm 1 GM/100 ML BAG IVPB SCH (10:16)
[2017-04-04] MEDS: Nystatin-Triamcinolone Cream(30 gm) TOP SCH ×2 (10:16→17:20)
--- NOTE | 2017-04-04 10:27 | PN ---
DATE: SUBJECTIVE: The patient was seen and examined at bedside on the general medical cabrera. No acute events overnight. She remains afebrile and hemodynamically stable. She continues to endorse visual hallucinations, but states her auditory hallucinations have completely subsided. OBJECTIVE: VITAL SIGNS: Temperature 98.1, pulse 61, blood pressure 116/45, respiratory rate 20, oxygen saturation 94% on room air. GENERAL: No apparent distress. HEENT: PERRL. EOMI. No scleral icterus. No conjunctival pallor. NECK: No JVD. No bruits. LUNGS: Clear to auscultation. CARDIOVASCULAR: Regular rate and rhythm. Normal S1 and S2. ABDOMEN: Normoactive bowel sounds. Soft, nontender, and nondistended. EXTREMITIES: Trace lower extremity edema bilaterally. NEUROLOGIC: Awake, alert, and oriented x3. No focal motor deficits. LABORATORY DATA: CBC reviewed and largely unremarkable. CMP reviewed and largely unremarkable. ASSESSMENT: The patient is a 72-year-old woman with multiple medical comorbidities including type 2 diabetes mellitus with diabetic neuropathy, hypothyroidism, chronic obstructive pulmonary disease and hyperlipidemia who presented to [facility] with a several day history of auditory and visual hallucinations, which started after being initiated on Neurontin for treatment of her underlying diabetic neuropathy, which are presently resolving. PLAN: 1. Delirium, consider secondary to medication induced versus secondary to underlying UTI. The patient continues to endorse resolution of auditory hallucinations, but reports persistent visual hallucinations. She has now been off Neurontin for [address] Sima Gómez of psychiatry and Dr. Goodrich of neurology noted and appreciated. The patient has been started on Seroquel by Dr. Sima Gómez. 2. Nonobstructive CAD. The patient remains chest pain free. Continue with aspirin 81 mg p.o. daily, Lipitor 40 mg p.o daily and Lopressor 25 mg p.o. b.i.d. 3. CHF. The patient remains clinically euvolemic. Continue with current medications as above. 4. Type 2 diabetes mellitus. Continue with metformin 500 mg p.o. b.i.d. 5. COPD. Continue with supplemental oxygen as needed. 6. Hyperlipidemia. Continue with Lipitor at 40 mg p.o. daily. 7. Hypothyroidism. Continue with Synthroid 50 mcg p.o. daily. 8. Hypertension. Blood pressure remains stable. Continue with current medications. 9. Intertrigo. Continue with nystatin topical suspension. 10. Prophylaxis. GI prophylaxis not indicated as patient is eating. DVT prophylaxis not indicated as patient is ambulatory. CODE STATUS: FULL CODE. Maurilio Vicente MD
[2017-04-04] MEDS: QUEtiapine 150 mg XR Tab PO SCH (22:30)
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
[2017-04-05] MEDS: Levothyroxine 50 MCG TAB PO SCH (05:53)
[2017-04-05 07:05] LABS: BASO # 0.06 K/mm3 (0.0-2.0); BASO % 1.1 % (0.0-3.0); EOS # 0.3 (0.0-0.7); GRAN # 3.45 (1.4-6.5); GRAN % 62.3 % (50.0-68.0); LYMPH # 1.3 (1.2-3.4); LYMPH % 24.1 % (22.0-35.0); MEAN CELL VOLUME 95.5 fl (80.0-105.0); MEAN CORPUSCULAR HEMOGLOBIN 30.4 pg (25.0-35.0); MEAN CORPUSCULAR HGB CONC 31.8 g/dl (31.0-37.0); MEAN PLATELET VOLUME 10.4 fl (7.0-11.0); MONO # 0.4 (0.1-0.6); MONO % 6.5 % (1.0-6.0); RED CELL DISTRIBUTION WIDTH 14.8 % (11.5-14.5); WHITE BLOOD COUNT 5.5 10^3/ul (4.5-11.0)
[2017-04-05 07:22] LABS: ALB/GLOB RATIO 1.4 (1.1-1.8); ALKALINE PHOSPHATASE 100 U/L (38-126); ALT/SGPT 80 U/L (7-56); AST/SGOT 58 U/L (14-36); BILIRUBIN,TOTAL 0.5 mg/dL (0.2-1.3); BLOOD UREA NITROGEN 12 mg/dL (7-21); CALCIUM 8.8 mg/dL (8.4-10.5); CARBON DIOXIDE 29 mmol/L (21-33); CHLORIDE 104 mmol/L (98-107); GFR AFRICAN-AMERICAN > 60; GLUCOSE,RANDOM 110 mg/dL (70-110); POTASSIUM 4.4 mmol/L (3.6-5.0); SODIUM 141 mmol/L (132-148); TOTAL PROTEIN 6.4 g/dL (5.8-8.3)
[2017-04-05] MEDS: cefTRIAXone 1 gm 1 GM/100 ML BAG IVPB SCH (09:26)
[2017-04-05] MEDS: Nystatin-Triamcinolone Cream(30 gm) TOP SCH ×2 (09:35→17:45)
--- NOTE | 2017-04-05 14:30 | PN ---
DATE: 04/05/2017 SUBJECTIVE: The patient is a 72-year-old female with questionable history of paranoid personality disorder. The patient was admitted on the medical site for evaluation of visual hallucination. Medical team feels it is delirium due to urinary tract infection or Neurontin, which was started prior. Patient started visual hallucination. This health underwriter agree with that possible diagnosis. At the same time, this health underwriter wanted to rule out neurological deficit that is why Neurology team was involved into the patient. The patient was cleared by neurologist. This health underwriter had phone conversation with the patient's sister, Cecille. The patient gave permission to talk to her Cecille, #[phone], Diamond Cceille. The patient had paranoid ideations and this is not new for the patient. At the same time, visual hallucination started about a month ago and that was progressively worsening. Besides that, patient has history of irritability and aggressive behavior, but not any time recent. The patient had history of being evaluated by psychiatrist long time ago and had therapist, but refused to follow up with them any longer. This health underwriter attempted to speak to the patient today. The patient presented to be better to compare with yesterday. The patient says that she feels better. The patient still feels bugs on the chavez, but patient noted some improvement with her symptoms. The patient said that before these bugs were attacking her, right now "they are my friends." The patient denies being depressed. Denies thoughts of harming herself or others. Denies intents or plan. PHYSICAL EXAMINATION. VITAL SIGNS: Stable. Pulse is 68, blood pressure 119/50. MEDICATIONS: Reviewed. Tylenol, aspirin, Lipitor, Rocephin, Synthroid, Zestril, Glucophage, metoprolol, nystatin, and Seroquel extended release 150 mg at night time. LABORATORY DATA: Labs reviewed. MENTAL STATUS EXAMINATION: The patient presented to be calmer, intermittent eye contact. Speech was over productive, but not pressured. Mood described that he is feeling fine "I want to get out of here." Affect was labile. Thought content, patient denied thoughts of killing herself or others, but still have visual hallucinations and denies auditory hallucinations. Reported to have some improvement. Insight and judgement are fair. Impulses is well-controlled. Insight and judgement limited, but improving. Impulse control is fair. IMPRESSION: Most likely, patient has delirium, visual hallucination or usually related to either neurological problems or substance withdrawals, and medical issues. In regards of paranoid ideation, the patient has chronic paranoia and most likely patient has paranoid personality as per sister's collateral information. PLAN: Continue current management and Seroquel was increase to extended release of 150 mg at night time. We will continue that. Continue current management. Continue antibiotics. In regards of delirium, usually it will take awhile for the patient to improve. I hope that patient will be improving faster. Patient is on IV antibiotics. Collaterals from the sister appreciated. The patient gave permission. This health underwriter educated patient about the risks, benefits, and alternatives of the Seroquel and treatment plan. The patient verbalized understanding. Over the weekend, Dr. Mayo will followup on this patient and advise accordingly. Thanking you very much for letting me to participate in care of your patient. Sima Gómez MD
[2017-04-05] MEDS: QUEtiapine 150 mg XR Tab PO SCH (21:12)
[2017-04-06] MEDS: Levothyroxine 50 MCG TAB PO SCH (06:15)
[2017-04-06 06:39] LABS: ALB/GLOB RATIO 1.4 (1.1-1.8); BILIRUBIN,TOTAL 0.4 mg/dL (0.2-1.3); CALCIUM 8.9 mg/dL (8.4-10.5); POTASSIUM 4.5 mmol/L (3.6-5.0)
[2017-04-06 06:56] LABS: BASO # 0.03 K/mm3 (0.0-2.0); BASO % 0.6 % (0.0-3.0); EOS # 0.2 (0.0-0.7); EOS % 4.7 % (1.5-5.0); GRAN % 63.7 % (50.0-68.0); HEMATOCRIT 35.8 % (36.0-48.0); LYMPH # 1.1 (1.2-3.4); LYMPH % 23.8 % (22.0-35.0); MEAN CELL VOLUME 95.5 fl (80.0-105.0); MEAN CORPUSCULAR HEMOGLOBIN 30.4 pg (25.0-35.0); MEAN CORPUSCULAR HGB CONC 31.8 g/dl (31.0-37.0); MEAN PLATELET VOLUME 10.4 fl (7.0-11.0); MONO # 0.3 (0.1-0.6); MONO % 7.2 % (1.0-6.0); RED CELL DISTRIBUTION WIDTH 14.7 % (11.5-14.5); WHITE BLOOD COUNT 4.7 10^3/ul (4.5-11.0)
--- NOTE | 2017-04-06 10:06 | PN ---
SUBJECTIVE: The patient was seen and examined at bedside on the general medical cabrera. No acute events overnight. She remains afebrile and hemodynamically stable. The patient continues to endorse auditory and visual hallucinations, which are unchanged from yesterday, but otherwise offers no complaints. OBJECTIVE: VITAL SIGNS: Temperature 97.6, pulse 59, blood pressure 124/64, respiratory rate 20, oxygen saturation 93% on room air. GENERAL: No apparent distress. HEENT: PERRL. EOMI. No scleral icterus. No conjunctival pallor. NECK: No JVD. No bruits. LUNGS: Clear to auscultation. CARDIOVASCULAR: Regular rate and rhythm. Normal S1 and S2. ABDOMEN: Normoactive bowel sounds. Soft, nontender, and nondistended. EXTREMITIES: Trace lower extremity edema bilaterally. NEUROLOGIC: Awake, alert, and oriented x3. No focal motor deficits. LABORATORY DATA: CBC reviewed and largely unremarkable. CMP reviewed and largely unremarkable. ASSESSMENT: The patient is a 72-year-old woman with multiple medical comorbidities including type 2 diabetes mellitus with diabetic neuropathy, hypothyroidism, chronic obstructive pulmonary disease and hyperlipidemia who presented to [facility] for evaluation of auditory and visual hallucinations, which started after being initiated on Neurontin for treatment of her underlying diabetic neuropathy, which have gradually improved since admission. However, still persist. PLAN: 1. Delirium, consider secondary to medication induced versus secondary to underlying UTI. The patient reports that her hallucinations are unchanged over the previous 24 to [address] Sima Gómez of psychiatry noted and appreciated. Continue with current care as per Dr. Gao. 2. Nonobstructive CAD. The patient remains chest pain free. Continue with aspirin 81 mg by mouth daily, Lipitor 40 mg by mouth daily and Lopressor 25 mg by p.o., b.i.d. 3. CHF. The patient remains clinically euvolemic. Continue with current medications. 4. Type 2 diabetes mellitus. Continue with metformin 500 mg by mouth two times a day. 5. COPD. Continue with supplemental oxygen as needed. 6. Hyperlipidemia. Continue with Lipitor at 40 mg by mouth daily. 7. Hypothyroidism. Continue with Synthroid 50 mcg by mouth daily. 8. Hypertension. Blood pressure remains stable. Continue with current medications. 9. Intertrigo, improving. Continue with nystatin topical suspension. 10. Prophylaxis. GI prophylaxis not indicated as patient is eating. DVT prophylaxis not indicated as patient is ambulatory. CODE STATUS: FULL CODE. Maurilio Vicente MD
[2017-04-06] MEDS: Nystatin-Triamcinolone Cream(30 gm) TOP SCH ×2 (10:14→17:35)
[2017-04-06] MEDS: cefTRIAXone 1 gm 1 GM/100 ML BAG IVPB SCH (10:14)
--- NOTE | 2017-04-06 10:53 | CON ---
DATE: HISTORY OF PRESENT ILLNESS: The patient is a 72-year-old female with reported questionable history of paranoid personality disorder. Psychiatry has been following patient on the medical side for evaluation of visual hallucinations, which appeared to be secondary to either delirium in context of urinary tract infection or Neurontin. I had reviewed Dr. Gómez's followup note, which indicate that the patient continues to be hallucinating on the unit, but generally without any aggression or agitation on the unit. She has been showing some gradual improvement in her hallucinations and she continues to report having hallucinations today, but typically she still feels like she sees bugs on the wall. She indicates that she is "unnerve when she found out that they were not real." She denies having any other hallucinations and she presents as coherent and her responses are generally relevant to questioning. Regarding to depression she indicates that she could be "doing better, but she is not hopeless or suicidal." She has no thoughts of harming anybody and she denies paranoia. She feels that the treatment team is here to help her. She is tolerating Seroquel so far. Denies any side effects from this medication; however, she did indicate that she did not speak well last night, but she indicates that this is secondary to back pain. She is generally been in control on the unit. Vital signs and lab studies were reviewed by this provider. Relevant psychiatric medications include Seroquel XR 150 mg at bedtime. IMPRESSION: Likely delirium, some improvement; history of chronic paranoia possibly secondary to paranoid personality disorder as per just collateral information. RECOMMENDATIONS: We will continue current management with Seroquel XR; however, with change formulation to be taken in the evening as this sedating effect from this medication can take 4-5 hours to take effect, but has no new complaints at this time as psychiatry will continue to follow up with her every two days; however, if there are any acute changes in patient's symptoms, please feel free to ask psychiatry to come more frequently. Liz Mayo MD
[2017-04-06] MEDS: QUEtiapine 150 mg XR Tab PO SCH (17:34)
[2017-04-07] MEDS: Levothyroxine 50 MCG TAB PO SCH (05:39)
[2017-04-07 07:30] LABS: BASO # 0.04 K/mm3 (0.0-2.0); BASO % 0.8 % (0.0-3.0); EOS # 0.3 (0.0-0.7); GRAN # 3.23 (1.4-6.5); GRAN % 64.1 % (50.0-68.0); HEMATOCRIT 36.4 % (36.0-48.0); LYMPH # 1.1 (1.2-3.4); MEAN CORPUSCULAR HEMOGLOBIN 31.1 pg (25.0-35.0); MEAN CORPUSCULAR HGB CONC 32.7 g/dl (31.0-37.0); MEAN PLATELET VOLUME 9.8 fl (7.0-11.0); MONO # 0.5 (0.1-0.6); MONO % 9.1 % (1.0-6.0); RED CELL DISTRIBUTION WIDTH 14.6 % (11.5-14.5)
[2017-04-07 07:45] LABS: ALB/GLOB RATIO 1.4 (1.1-1.8); BILIRUBIN,TOTAL 0.4 mg/dL (0.2-1.3); POTASSIUM 4.4 mmol/L (3.6-5.0); TOTAL PROTEIN 6.3 g/dL (5.8-8.3)
[2017-04-07] MEDS: cefTRIAXone 1 gm 1 GM/100 ML BAG IVPB SCH (10:11)
[2017-04-07] MEDS: Nystatin-Triamcinolone Cream(30 gm) TOP SCH (10:13)
--- NOTE | 2017-04-07 14:20 | PN ---
DATE: 04/07/2017 SUBJECTIVE: The patient was seen and examined at bedside on the general medical cabrera. No acute events overnight. The patient continues to endorse auditory and visual hallucinations. She also complains of some mild lower abdominal pain and constipation, but otherwise denies fevers, chills or rigors. OBJECTIVE: VITAL SIGNS: Temperature 97.7, pulse 60, blood pressure 112/61, respiratory rate 20, oxygen saturation 95% on room air. GENERAL: A morbidly obese woman lying in bed, in no apparent distress. HEENT: PERRL. EOMI. No scleral icterus. No conjunctival pallor. NECK: No JVD. No bruits. LUNGS: Clear to auscultation. CARDIOVASCULAR: Regular rate and rhythm. Normal S1 and S2. ABDOMEN: Normoactive bowel sounds. Soft, nondistended. Mild tenderness to right lower quadrant with voluntary guarding. No rigidity. No rebound. EXTREMITIES: No edema. NEUROLOGIC: Awake, alert, and oriented x3. No focal motor deficits. LABORATORY DATA: CBC reviewed and unremarkable. CMP reviewed and largely unremarkable. ASSESSMENT: The patient is a 72-year-old woman with multiple medical comorbidities including type diabetes mellitus with diabetic neuropathy, hypothyroidism, hyperlipidemia, and chronic obstructive pulmonary disease who presented to [facility] for evaluation of auditory and visual hallucinations, which started after being initiated on Neurontin for treatment of underlying diabetic neuropathy, which persists at present. PLAN: 1. Delirium, consider secondary to medication-induced versus underlying urinary tract infection. The hallucinations remain unchanged over the previous 36 [address] Sima Gómez noted and appreciated. 2. Nonobstructive coronary artery disease. The patient remains chest pain- free. Continue with aspirin 81 mg p.o. daily, Lipitor 40 mg p.o. daily, and Lopressor 25 mg p.o. b.i.d. 3. Congestive heart failure. The patient remains clinically euvolemic. Continue with current medication. 4. Type 2 diabetes mellitus. Continue with metformin 500 mg p.o. b.i.d. 5. Chronic obstructive pulmonary disease. Continue with supplemental oxygen and bronchodilators as needed. 6. Hyperlipidemia. Continue with Lipitor 40 mg p.o. daily. 7. Hypothyroidism. Continue with Synthroid 50 mcg p.o. daily. 8. Hypertension. Blood pressure remains stable. Continue with current medications. 9. Urinary tract infection, resolved. We will discontinue IV antibiotics today as patient has completed a 5-day course. 10. Prophylaxis. GI prophylaxis is not indicated as the patient is eating. DVT prophylaxis not indicated as the patient is ambulatory Code Status: Full Code. Maurilio Vicente MD MTDD
[2017-04-07] MEDS: Nystatin-Triamcinolone Ointment(30 gm) TOP SCH (17:11)
[2017-04-07] MEDS: QUEtiapine 150 mg XR Tab PO SCH (17:12)
[2017-04-07] MEDS: POLYETHYLENE GLYCOL 3350 17 GM/Dose PACKET PO SCH (17:12)
[2017-04-08] MEDS: Levothyroxine 50 MCG TAB PO SCH (06:46)
[2017-04-08 07:00] LABS: BASO # 0.05 K/mm3 (0.0-2.0); BASO % 1.1 % (0.0-3.0); EOS # 0.3 (0.0-0.7); EOS % 5.6 % (1.5-5.0); GRAN # 2.79 (1.4-6.5); GRAN % 59.6 % (50.0-68.0); HEMATOCRIT 36.4 % (36.0-48.0); LYMPH # 1.1 (1.2-3.4); LYMPH % 24.1 % (22.0-35.0); MEAN CELL VOLUME 96.3 fl (80.0-105.0); MEAN CORPUSCULAR HEMOGLOBIN 29.9 pg (25.0-35.0); MEAN PLATELET VOLUME 9.8 fl (7.0-11.0); MONO # 0.5 (0.1-0.6); MONO % 9.6 % (1.0-6.0); RED CELL DISTRIBUTION WIDTH 14.8 % (11.5-14.5); WHITE BLOOD COUNT 4.7 10^3/ul (4.5-11.0)
[2017-04-08 07:03] LABS: ALB/GLOB RATIO 1.4 (1.1-1.8); BILIRUBIN,TOTAL 0.3 mg/dL (0.2-1.3); CALCIUM 8.9 mg/dL (8.4-10.5); POTASSIUM 4.7 mmol/L (3.6-5.0); TOTAL PROTEIN 6.2 g/dL (5.8-8.3)
[2017-04-08 08:13] VITALS: RESP 20
--- NOTE | 2017-04-08 09:07 | PN ---
DATE: 04/05/2017 SUBJECTIVE: The patient currently is in room 363, bed 1. The patient continues with her hallucinations and some paranoid ideas. She has been off the medication for 1 week. Her mentation is not changed in that time. There have been no acute medical problems recorded overnight. PHYSICAL EXAMINATION: VITAL SIGNS: Temperature of 97.6, pulse rate of 67, blood pressure 135/86 with a respiratory rate of 20 and an O2 saturation of 96% on room air. HEENT: Unremarkable. NECK: Supple with no adenopathy or bruits. HEART: Regular rate rhythm. LUNGS: Clear bilaterally. ABDOMEN: Soft and it is nontender. There is no organomegaly. Bowel sounds are normoactive. EXTREMITIES: Show no deformities or edema. NEUROLOGICALLY: The patient is confused x3. She is confabulating, but there are no focal motor deficits. LABORATORY DATA: WBC is 5.5 and hemoglobin and hematocrit 12.1 and 38.0. Chemistries essentially normal with the exception of an ALT and an AST of 58 and 60. Toxicology is entirely negative from 04/01/2017. RPR is nonreactive. Based on the fact being off Lyrica for at least duration of the patient continuous to confabulate and have visual hallucinations. Most likely, the patient is paranoiac and/or schizophrenic and/or was withdrawing from alcohol. We will defer to psychiatry for continued diagnoses and possible transfer the patient up to the psychiatric unit. DIAGNOSES: At this time, urinary tract infection, chest pain, and visual hallucinations. The patient is also with diabetic as well as hypothyroid. We will continue current regimen and possibly transfer the patient to the psychiatric unit. Sawyer Vicente MD
[2017-04-08] MEDS: POLYETHYLENE GLYCOL 3350 17 GM/Dose PACKET PO SCH ×2 (10:37→20:16)
[2017-04-08] MEDS: Nystatin-Triamcinolone Ointment(30 gm) TOP SCH ×2 (10:38→20:16)
--- NOTE | 2017-04-08 15:19 | PN ---
SUBJECTIVE: The patient was seen and examined at bedside on the general medical cabrera. No acute events overnight. The patient reports auditory hallucinations, reports persistent visual hallucinations. I received a call this morning from the patient's sister reporting that while she was at [facility], she was told that she may have some retinal damage, and they were requesting ophthalmologic evaluation. They were advised that given the nature of the visual hallucination, it is less likely that this is an ophthalmologic issue; however, will consult Ophthalmology for evaluation as per family request. OBJECTIVE: VITAL SIGNS: Temperature 97.8, pulse 63, blood pressure 125/59, respiratory rate 20, and oxygen saturation 95% on room air. GENERAL: Obese woman lying in bed, in no apparent distress. HEENT: PERRL. EOMI. No scleral icterus. No conjunctival pallor. NECK: No JVD. No bruits. LUNGS: Clear to auscultation. CARDIOVASCULAR: Regular rate and rhythm. Normal S1 and S2. ABDOMEN: Normoactive bowel sounds. Soft, nontender, and nondistended. EXTREMITIES: No edema. NEUROLOGIC: Awake, alert and oriented x3. No focal motor deficits. LABORATORY DATA: CBC reviewed and unremarkable. CMP reviewed and unremarkable. ASSESSMENT: The patient is a 72-year-old woman with multiple medical comorbidities including type 2 diabetes with diabetic neuropathy, hypothyroidism, hyperlipidemia, and chronic obstructive pulmonary disease, who presented to [facility] for evaluation of auditory and visual hallucinations which started after being initiated on Neurontin for treatment of her underlying diabetic neuropathy. PLAN: 1. Delirium. Consider secondary to medication-induced versus UTI. The patient reports persistent symptoms, albeit improved since admission. At this point in time, it is unlikely that the etiology is secondary to an UTI as the patient remains afebrile, hemodynamically stable, and with no signs or symptoms of an ongoing urinary tract infection. Furthermore, she has completed a 5-day course of ceftriaxone. It also appears less likely that the etiology is secondary to medication-induced given that the patient was been off the offending agent for 7 days. We will need to discuss with Dr. Gao the possibility of the primary psychiatric issue that may be ongoing on this patient. 2. Nonobstructive CAD. The patient remains chest pain free, continue aspirin 81 mg p.o. daily, Lipitor 40 mg p.o. daily, and Lopressor 25 mg p.o. b.i.d. 3. CHF. The patient remains clinically euvolemic, continue with current medications. 4. Type 2 diabetes mellitus, continue with metformin 500 mg p.o. b.i.d. 5. COPD, continue with supplemental oxygen and bronchodilators as needed. 6. Hyperlipidemia, continue with Lipitor 40 mg p.o. daily. 7. Hypothyroidism, continue with Synthroid 50 mcg p.o. daily. 8. Hypertension. If blood pressure remains stable, continue with current medications. 9. UTI, resolved. 10. Prophylaxis. GI prophylaxis not indicated as patient is eating. DVT prophylaxis not indicated as patient is ambulatory. CODE STATUS: Full code. Maurilio Vicente MD
[2017-04-08 17:02] VITALS: O2SAT 96
[2017-04-08] MEDS: QUEtiapine 150 mg XR Tab PO SCH (20:14)
--- NOTE | 2017-04-08 21:01 | PN ---
SUBJECTIVE: The patient was followed up. Discussed with the medical team and primary care physician, Dr. Vicente. As per nursing report, the patient does not have any behavioral outbursts. The patient was oddly related, but there is no agitation or aggression. This telegraphic typewriter operator chief spoke to the patient's sister. The patient was having paranoid personality symptoms for years, but most recently for past month, the patient has visual hallucinations. The patient's delirium is improving. The patient still has visual hallucinations, presented with bugs on the chavez, but the patient said that she feels better and bugs are not attacking her. Vital signs are stable. MEDICATIONS: Reviewed. Tylenol, aspirin, Lipitor, Flexeril, Synthroid, Zestril, Glucophage, Lopressor, nystatin, MiraLax, and Seroquel extended release at nighttime 150 mg. The patient was educated about risks, benefits and alternatives of the Seroquel, was advised to continue that medication. The patient was willing to do so. LABORATORY DATA: Most recent labs are reviewed. Chemistry reviewed. Toxicology reviewed. Serology reviewed. There are no signs of agranulocytosis. MENTAL STATUS EXAMINATION: The patient appears to be alert, pleasant, somewhat oddly related. At times, the patient would stare at this telegraphic typewriter operator chief, but overall much improvement. The patient was able to hold conversation. Mood described "I feel fine, I cannot wait to go back home." Affect was reactive. Mood congruent. Thought process at times are circumstantial and tangential, but overall with much improvement. Thought content: The patient still has visual hallucinations. The patient denied hearing voices. The patient does not present to be psychotic but at times the patient appears to be suspicious and guarded but there is no paranoia. At the moment of the interview, insight and judgement improving. Impulses are well controlled. IMPRESSION: Most likely, the patient has paranoid personality disorder for years which were not addressed by psychiatrist in the community. The patient was refusing to go to see the psychiatrist. At the present moment, most likely visual hallucinations related to the urinary tract infection and new medication Neurontin, which I doubt that could give visual hallucinations, but most likely it was related to urinary tract infection which is clearing up. PLAN: The patient was educated about the importance to be followed up with outpatient psychiatrist. The patient does not feel comfortable at this time to sign herself into the psychiatric inpatient unit. This telegraphic typewriter operator chief offered admission but the patient declined that offer. The patient was educated to take medication, was prescribed and provided with a phone number for outpatient clinics. Case was discussed with Dr. Vicente as well as with the patient's family and nursing staff. This telegraphic typewriter operator chief will sign off. Should you have any questions, give me a call back. The patient pose no imminent danger to self or others. Sima Gómez MD
[2017-04-09] MEDS: Levothyroxine 50 MCG TAB PO SCH (06:25)
[2017-04-09 07:10] LABS: ALB/GLOB RATIO 1.4 (1.1-1.8); BILIRUBIN,TOTAL 0.4 mg/dL (0.2-1.3); CALCIUM 9.2 mg/dL (8.4-10.5); POTASSIUM 4.9 mmol/L (3.6-5.0); TOTAL PROTEIN 6.4 g/dL (5.8-8.3)
[2017-04-09 07:19] LABS: BASO # 0.05 K/mm3 (0.0-2.0); BASO % 0.9 % (0.0-3.0); EOS # 0.3 (0.0-0.7); EOS % 5.8 % (1.5-5.0); GRAN # 3.84 (1.4-6.5); GRAN % 65.3 % (50.0-68.0); HEMATOCRIT 37.7 % (36.0-48.0); LYMPH # 1.2 (1.2-3.4); LYMPH % 20.3 % (22.0-35.0); MEAN CORPUSCULAR HEMOGLOBIN 30.7 pg (25.0-35.0); MEAN CORPUSCULAR HGB CONC 32.4 g/dl (31.0-37.0); MONO # 0.5 (0.1-0.6); MONO % 7.7 % (1.0-6.0); RED CELL DISTRIBUTION WIDTH 14.6 % (11.5-14.5); WHITE BLOOD COUNT 5.9 10^3/ul (4.5-11.0)
[2017-04-09 07:54] VITALS: BP 147/74; PULSE 66; TEMP 98.4
[2017-04-09] MEDS: POLYETHYLENE GLYCOL 3350 17 GM/Dose PACKET PO SCH (09:42)
--- NOTE | 2017-04-09 13:27 | PN ---
SUBJECTIVE: The patient was seen and examined at bedside on the general medical cabrera. No acute events overnight. She remains afebrile and hemodynamically stable. The patient continues to have persistent visual hallucinations and intermittent auditory hallucinations. After a long discussion with Dr. Sima Gómez and the patient yesterday, she is agreeable for transfer to the inpatient psychiatric unit for continued management of her auditory and visual hallucinations as the etiology of these hallucination now appears to be a primary psychiatric condition as opposed to secondary to some underlying medical conditions. Otherwise, the patient states she feels okay and denies any complaints. OBJECTIVE: VITAL SIGNS: Temperature 98.4, pulse 66, blood pressure 147/74, respiratory rate 20, and oxygen saturation 96% on room air. GENERAL: Obese woman sitting up in bed, in no apparent distress. HEENT: PERRL. EOMI. No scleral icterus. No conjunctival pallor. NECK: No JVD. No bruits. LUNGS: Clear to auscultation. CARDIOVASCULAR: Regular rate and rhythm. Normal S1 and S2. ABDOMEN: Normoactive bowel sounds. Soft, nontender, and nondistended. EXTREMITIES: No edema. NEUROLOGIC: Awake, alert and oriented x3. No focal motor deficits. LABORATORY DATA: CBC reviewed and unremarkable. CMP reviewed and unremarkable. ASSESSMENT: The patient is a 72-year-old woman with multiple medical comorbidities including type 2 diabetes with diabetic neuropathy, hypothyroidism , hyperlipidemia, and chronic obstructive pulmonary disease, who presented to [facility] for evaluation of auditory and visual hallucinations, which started after being initiated on Neurontin for treatment of her underlying diabetic neuropathy, which persist and who is presently pending transfer to the inpatient psychiatric unit. PLAN: 1. Delirium, etiology unclear, however, it is now less likely to be secondary to an underlying medical condition. The patient is status post adequate course of treatment for underlying UTI and has also been off Neurontin for over a week. However despite this, her hallucination persist. As above after discussing the patient with Dr. Sima Gómez, she is pending transfer to the inpatient psychiatric unit. 2. Nonobstructive CAD. The patient remains chest pain free, continue with aspirin 81 mg p.o. daily, Lipitor 40 mg p.o. daily, and Lopressor 25 mg p.o. b.i.d. 3. CHF. The patient remains clinically euvolemic, continue with current medications. 4. Type 2 diabetes mellitus, continue with metformin 500 mg p.o. b.i.d. 5. COPD, continue with supplemental oxygen and bronchodilators as needed. 6. Hyperlipidemia, continue with Lipitor 40 mg p.o. daily. 7. Hypothyroidism, continue with Synthroid 50 mcg p.o. daily. 8. Hypertension. Blood pressure remains stable, continue with current medications. 9. Prophylaxis. GI prophylaxis not indicated as patient is eating. DVT prophylaxis not indicated as patient is ambulatory. CODE STATUS: FULL CODE. Maurilio Vicente MD MTDD
[2017-04-09] MEDS: Nystatin-Triamcinolone Ointment(30 gm) TOP SCH (14:09)
--- NOTE | 2017-04-09 19:20 | PN ---
DATE: SUBJECTIVE: Family meeting took place yesterday in the evening time with the medical team as well as patient's sisters. The patient was willing to sign consent for treatment. This typewriter ribbon winder needed to discuss treatment plan with this patient. The patient was seen today at the morning time. The patient educated about the treatment plan and about medication adjustment and about psychiatric inpatient unit admission. The patient said that she is willing to get better and she is willing to take medication as well as therapy. The patient cleared by medical team and signed consent with 7th grade social studies teacher later on. The patient still is psychotic, disorganized, guarded but patient denied thought of killing herself. At present moment, patient might benefit from transfer to the psychiatric inpatient unit, This author reviewed. PHYSICAL EXAMINATION: VITAL SIGNS: Seems to be stable. Temperature 98.4, pulse 66, blood pressure 147/74, oxygen saturation 96, respirations 20. MEDICATIONS: Reviewed. Tylenol, aspirin, Lipitor, Flexeril, Synthroid, Zestril, metformin, Lopressor, nystatin, MiraLax, Seroquel extended release 150 mg at the night time. LABS: Reviewed, seems to be better. Chemistry reviewed. Toxicology reviewed. Serology reviewed. MENTAL STATUS EXAMINATION: The patient presented to be guarded and suspicious, but overall, no aggressive or agitated behavior, intermittent eye contact, speech was underproductive, yes/no answers. Thought process, disorganized and circumstantial. Thought content, patient still has visual hallucination, but with some improvement. The patient has picture of some bugs attacking her. Right now patient only sees bugs on the chavez. The patient's family said that the patient is not at her baseline and patient's insight and judgment are improving. Impulses are better controlled. IMPRESSION: 1. As per history, most likely patient has history of paranoia personality, at present moment, visual hallucinations might be related. 2. Delirium. patient had urinary tract infection, also Neurontin was started recently. The patient has multiple medical issues, please see Dr. Vicente note for more detailed information. PLAN: The patient is willing to go to the psychiatric inpatient unit for further evaluation and stabilization. This typewriter ribbon winder most likely will discontinue Seroquel and will start neutral medications such as Geodon or Abilify. Family will be involved. The patient is to be followed up by medical team, physical therapy evaluation. The patient will be transferred over today, should you have any questions, give me a call back. Thank you very much for letting me participate in the care of your patient. Sima Gómez MD
== END 2017-04-09 15:30 | DRG 690 ==
LOC: ED 18:43 → ERH 04-01 02:10 → 3RNO 04-01 02:58 → OBSVTOIN 04-02 14:52 → 3RNO 04-07 18:40
PROVIDERS: ADMIT Student in an Organized Health Care Education/Training Program; ATTEND Student in an Organized Health Care Education/Training Program
DX: N39.0 Urinary tract infection, site not specified (principal); F05 Delirium due to known physiological condition; I11.0 Hypertensive heart disease with heart failure; E11.40 Type 2 diabetes mellitus with diabetic neuropathy, unspecified; I50.9 Heart failure, unspecified; R44.1 Visual hallucinations; I25.10 Atherosclerotic heart disease of native coronary artery without angina pectoris; J44.9 Chronic obstructive pulmonary disease, unspecified; E03.9 Hypothyroidism, unspecified; E78.5 Hyperlipidemia, unspecified; L30.4 Erythema intertrigo; F60.0 Paranoid personality disorder; R07.9 Chest pain, unspecified; K59.00 Constipation, unspecified; Z91.81 History of falling; Z87.891 Personal history of nicotine dependence

== ENCOUNTER 2017-04-09 15:32 | Inpatient (IN) | payer MEDICARE, OTHER ==
[2017-04-09 16:11] VITALS: BMI 48.6
--- NOTE | 2017-04-09 16:59 | PCM.BM ---
<MarkDonita - Last Filed: 04/09/17 16:56> Treatment Plan Problems - Problems identified on initial assessmt hopelessness Date Initiated: 04/09/17 Time Initiated: 16:00 Assessment reference: NA Status: Active Priority: 1 feelings of wortlessness Date Initiated: 04/09/17 Time Initiated: 16:00 Assessment reference: NA Status: Active Priority: 2 nutrition more than body requirement Date Initiated: 04/09/17 Time Initiated: 16:00 Assessment reference: NA Status: Active Priority: 3 social isolation Date Initiated: 04/09/17 Time Initiated: 16:00 Assessment reference: NA Status: Active Priority: 4 self care deficit Date Initiated: 04/09/17 Time Initiated: 16:00 Assessment reference: NA Status: Active Priority: 5 Treatment assets and liabiliti Patient Assests: adapts well, cooperative, educated, self-reliant, good support system, negotiates basic needs Patient Liabilities: live alone, dietary restrictions, medical problems, visual impairment - Milieu Protocol Maintain good personal hygiene: daily Encourage regular showers, daily Remind patient to perform daily oral care, daily Assist patient to perform ADL's Conduct patient checks and document Observation sheet: Q15 minutes Maintain personal safety: every shift Educate patient to report safety concerns to staff, every shift Monitor environment for contraband/sharps Medication safety: Monitor for expected outcome, potential side effects: every shift, Assess barriers to learning: every shift, Assess readiness for medication education: every shift Discharge/Continuing Care - Education Needs Education Needs: Patient Medication, Patient Diagnosis/Disease Process, Patient Coping Skills, Patient Activities of Daily Living, Patient Health Practices/ Safety, Patient Personal Hygiene/Grooming - Discharge Discharge Criteria: Tolerates medication w/o severe side effects, Free of Suicidal thoughts, Normal sleep pattern, Ability to care for self <Sima Gómez - Last Filed: 04/10/17 08:58> - Diagnosis (1) Paranoid personality disorder Status: Acute Interventions: 04/10/17 08:59 Psychoeducation/psychotherapy Psychopharmacology/adjustment of medications as needed/ monitoring possible side effects Evaluate pt on daily basis Compliance with medications and follow up appointments Suicide and homicide risk assessment and prevention, coping strategies, safety plan Relapse prevention Reduction of symptoms Improve functional status Cognitive behavioral therapy Family involvement Possible social skill training as outpatient (2) Unspecified psychosis not due to a substance or known physiological condition Status: Acute Interventions: 04/10/17 08:59 Psychoeducation/psychotherapy Psychopharmacology/adjustment of medications as needed/ monitoring possible side effects Evaluate pt on daily basis Compliance with medications and follow up appointments Suicide and homicide risk assessment and prevention, coping strategies, safety plan Relapse prevention Reduction of symptoms Improve functional status Cognitive behavioral therapy Family involvement Possible social skill training as outpatient r/o delirium Pt will be seen by medical team as needed Medications will be confirmed and resumed Additional consultation by specialists as needed Lab work as needed (CBC, CMP, TSH, free T4, UA, Urine test for females as needed) CXR as needed EKG Physical therapy valuation as needed <Maria Del Carmen Dickerson Y - Last Filed: 04/10/17 16:04> Family Contact Family contact: Patient agrees to contact Family contact name: Cecille Haque(sister) Family contacted how many times per week?: 2
[2017-04-09] MEDS ORDERED: QUEtiapine 150 mg XR Tab PO SCH (17:00)
[2017-04-09] MEDS: POLYETHYLENE GLYCOL 3350 17 GM/Dose PACKET PO SCH (17:54)
[2017-04-09] MEDS: Nystatin-Triamcinolone Ointment(30 gm) TOP SCH (18:00)
[2017-04-10] MEDS: Levothyroxine 50 MCG TAB PO SCH (08:33)
[2017-04-10] MEDS: POLYETHYLENE GLYCOL 3350 17 GM/Dose PACKET PO SCH ×2 (08:33→17:28)
[2017-04-10] MEDS: Nystatin-Triamcinolone Ointment(30 gm) TOP SCH ×2 (08:34→17:24)
--- NOTE | 2017-04-10 13:31 | CON ---
MEDICAL CONSULTATION DATE: HISTORY OF PRESENT ILLNESS: The patient is a 72-year-old woman with past medical history of hypertension, COPD, type 2 diabetes mellitus with diabetic neuropathy and hyperlipidemia who presented to [facility] for evaluation of a several day history of auditory and visual hallucinations, which started after being initiated on Neurontin for treatment of her underlying diabetic neuropathy. Approximately 2-3 days into starting Neurontin, the patient developed auditory hallucinations, hearing muffled voices as well as visual hallucinations, which she described as seeing multiple insects consisting of praying mantis and spiders. The patient was initially brought to [facility] emergency department for evaluation by her sisters who was reportedly evaluated by the psychiatric team and discharged with outpatient followup. After being discharged, the patient reported that her symptoms had increased and her hallucinations were more severe and as such she was brought to [facility] for continued evaluation. The patient was initially admitted to the telemetry cabrera for management of delirium, which was presumed secondary to Neurontin versus possible underlying UTI. After completing a 5-day course of ceftriaxone and after being off Neurontin for over a week, the patient reported continued hallucinations after conferring with Dr. Sima Gómez and it was felt that her hallucinations at this point were more likely secondary to the primary psychiatric illness and as such, arrangements were made for transfer to the inpatient psychiatric unit for continued management. PAST MEDICAL HISTORY: As per HPI, also nonobstructive CAD and congestive heart failure and hypothyroidism. PAST SURGICAL HISTORY: As per HPI. ALLERGIES: NO KNOWN DRUG ALLERGIES. MEDICATIONS: Aspirin 81 mg p.o. daily, Lipitor 40 mg p.o. daily, Synthroid 50 mcg p.o. daily, lisinopril 10 mg p.o. daily, metformin 500 mg p.o. b.i.d., Lopressor 25 mg p.o. b.i.d., and Seroquel 150 mg p.o. at bedtime. FAMILY HISTORY: Noncontributory. SOCIAL HISTORY: The patient denies any toxic habits. REVIEW OF SYSTEMS: A 14-point review of systems is negative except as per HPI. PHYSICAL EXAMINATION: VITAL SIGNS: Temperature 97.6, pulse 66, blood pressure 130/110, respiratory rate 20, and oxygen saturation on room air. GENERAL: Obese woman, sitting up in bed, in no apparent distress. HEENT: PERRL. EOMI. No scleral icterus. No conjunctival pallor. NECK: No JVD. No bruits. LUNGS: Clear to auscultation. CARDIOVASCULAR: Regular rate and rhythm. Normal S1 and S2. ABDOMEN: Normal active bowel sounds, soft, nontender, and nondistended. EXTREMITIES: No edema. NEUROLOGIC: Awake, alert, and oriented x3. No focal motor deficits. LABORATORY DATA: No new labs. ASSESSMENT: The patient is a 72-year-old woman with multiple medical comorbidities including type 2 diabetes with diabetic neuropathy, hypothyroidism, hyperlipidemia, and chronic obstructive pulmonary disease who presented to [facility] for evaluation of auditory and visual hallucinations and was subsequently admitted to the inpatient psychiatric unit for continued care of her hallucinations and management of paranoid personality disorder. PLAN: 1. Delirium. Input from Dr. Sima Gómez noted and appreciated, continue with care as per the psychiatric team. 2. Nonobstructive CAD. The patient remains chest pain free, continue with aspirin 81 mg p.o. daily, Lipitor 40 mg p.o. daily, and Lopressor 25 mg p.o. b.i.d. 3. CHF. She remains clinically euvolemic. We will continue her current medications. 4. Type 2 diabetes mellitus. Continue with metformin 500 mg p.o. b.i.d. 5. COPD. The patient remains with stable respiratory status. We will continue to monitor and add bronchodilators as needed. 6. Hyperlipidemia. Continue with Lipitor 40 mg p.o. daily. 7. Hypothyroidism. Continue with Synthroid 50 mcg p.o. daily. 8. Hypertension. Blood pressure slightly elevated this morning; however, this may be secondary to agitation. Prior documentation noted, the patient to be hemodynamically stable. We will continue to monitor and adjust antihypertensives as needed. 9. Prophylaxis. GI prophylaxis is not indicated as the patient is eating. DVT prophylaxis is not indicated as the patient is ambulatory. CODE STATUS: FULL CODE. Maurilio Vicente MD
--- NOTE | 2017-04-10 15:15 | PCM.PSYCH ---
Initial Psychiatric Evaluation - Initial Psychiatric Evaluation Type of Admission: Voluntary Legal Status: Capacity (patient has capacity to sign consent for treatment) Chief Complaint (in patient's own words): "I still see bugs, before it was praying mantis, now I see spiders..., I refuse to sign ELECTRONIC TREATMENT PLAN, i don't want to have electronic treatment". Patient's Reaction to Hospitalization: patient was transferred from the medical floor for evaluation and stabilization of visual hallucinations, paranoid ideation, inability to function. History of Present Illness and Precipitating Events: shortly patient is a 72 year old female, as per family report most likely patient has history of bipolar disorder which was untreated for years, history of possible paranoid personality disorder, no previous history of psychiatric admissions, patient lives in [place] with her family, was brought to the hospital for evaluation of visual hallucinations, recently patient was started Neurontin, as well as found to have urinary tract infection, patient had treatment on the medical side, then was transferred to the psychiatric inpatient unit for further evaluation and stabilization, medication titration, patient was not willing to be f/u with psychiatrist in the community, patient had history of aggressive behavior at home, patient's family didn't feel comfortable to take patient back home, patient signed consent for treatment into the psychiatric inpatient unit. patient was seen at treatment team meeting, presented to have acceptable personal hygiene, has long calm may hair, intermittent eye contact, fair ADLs. Patient obviously is paranoid, suspicious, guarded, refused to sign electronic treatment plan, patient has concrete thought process said "I refuse sign myself for electronic treatment". This database report writer tried her best to educate patient about the electronic treatment plan staff need to be compliant with, patient was not able to comprehend. Patient still has visual hallucinations, bugs, spiders, patient reported no improvement with the symptoms. Patient was evaluated by neurology team on the medical side, did not find neurological deficits, no memory problems. pt denied being depressed, denied thoughts of harming herself or others. Patient denied feeling anxious, denied panic attacks, denied abuse. Patient has questionable history of bipolar disorder, patient was seen by psychiatrist in the community may need years ago, had been seen by therapist in the past, most likely patient had untreated bipolar disorder, as well as paranoid personality disorder vs schizoaffective disorder. This information was obtained from the patient's sister, patient gave consent to speak to the sister while she was admitted on the medical side. patient denied history of suicidal attempts, denied history of being admitted to psychiatric inpatient unit. patient denied smoking, denied using drugs, denied drinking alcohol. Medical history: As per medical history report patient was started on Neurontin few weeks prior off hallucinations.Patient had urinary tract infection, was on antibiotics on the medical side, patient also has obesity, diabetes, hyperlipidemia, hypertension, hypothyroidism, medical consultation appreciated. Vital Signs Temp Pulse Pulse Resp BP 04/10/17 07:20 97.6 F 66 20 130/110 H 04/09/17 18:05 60 20 04/09/17 17:53 60 122/54 L Current Medications: Active Medications Generic Name Dose Route Start Last Admin Trade Name Freq PRN Reason Stop Dose Admin Acetaminophen 650 mg 04/09/17 16:10 Tylenol 325mg Tab PO Q4H PRN Pain, Mild (1-3) Aspirin 81 mg 04/10/17 08:00 04/10/17 08:33 Aspirin Chewable PO 81 mg DAILY GENESIS Administration Atorvastatin Calcium 40 mg 04/09/17 17:00 04/09/17 17:53 Lipitor PO 40 mg DIN GENESIS Administration Cyclobenzaprine HCl 5 mg 04/09/17 18:00 04/10/17 13:26 Flexeril PO 5 mg TID GENESIS Administration Levothyroxine Sodium 50 mcg 04/10/17 06:00 04/10/17 08:33 Synthroid PO 50 mcg 0600 GENESIS Administration Lisinopril 10 mg 04/10/17 08:00 04/10/17 08:33 Zestril PO 10 mg DAILY GENESIS Administration Metformin HCl 500 mg 04/09/17 16:15 04/10/17 08:33 Glucophage PO 500 mg BID GENESIS Administration Metoprolol Tartrate 25 mg 04/09/17 16:15 04/10/17 08:33 Lopressor PO 25 mg BID GENESIS Administration Nystatin/Triamcinolone Acetonide 0 gm 04/09/17 16:15 04/10/17 08:34 Nystatin/Triamcinolone Ointment TOP 1 applic BID GENESIS Administration Polyethylene Glycol 17 gm 04/09/17 16:15 04/10/17 08:33 Miralax PO 17 gm BID GENESIS Administration patient was educated about medications, risk, benefits, alternatives discussed with the patient Past Psychiatric History - Past Psychiatric History Previous Treatment History: None Prior Professional Help: see HPI Prior Psychiatric Treatment: see HPI At what hospital: see HPI Duration: see HPI Nature of Treatment: see HPI Explanation of prior treatment: see HPI History of Abuse: see HPI, patient denied History of ETOH/Drug Use: see HPI History of Family Illness: see HPI Pertinent Medical Hx (Current Medical&Sleep Prob, Allergies): Allergies Allergy/AdvReac Type Severity Reaction Status Date / Time No Known Allergies Allergy Verified 08/05/16 19:51 Acetaminophen [Tylenol 325mg tab] 650 mg PO Q4H PRN tab 04/09/17 Aspirin [Aspirin Chewable] 81 mg PO DAILY 04/09/17 Atorvastatin [Lipitor] 40 mg PO DIN tab 04/09/17 Cyclobenzaprine [Flexeril] 5 mg PO TID tab 04/09/17 Levothyroxine [Synthroid] 50 mcg PO 0600 tab 04/09/17 Lisinopril [Zestril] 10 mg PO DAILY tab 04/09/17 Metoprolol Tartrate [Lopressor] 25 mg PO BID tab 04/09/17 Nystatin/Triamcinolone [Nystatin/Triamcinolone Ointment] 1 gm TOP BID 04/09/17 Polyethylene Glycol 3350 [Miralax] 17 gm PO BID packet 04/09/17 QUEtiapine [Seroquel XR] [address] 04/09/17 metFORMIN [glucOPHAGE] 500 mg PO BID tab 04/09/17 Review of Systems - Review of Systems Systems not reviewed;Unavailable: Acuity of Condition - EENT Eyes: As Per HPI Ears: As Per HPI Nose/Mouth/Throat: As Per HPI - Breasts Breasts: As Per HPI - Cardiovascular Cardiovascular: As Per HPI - Respiratory Respiratory: As Per HPI - Gastrointestinal Gastrointestinal: As Per HPI - Genitourinary Genitourinary: As Per HPI - Reproductive: Female Reproductive:Female: As Per HPI - Menstruation Menstruation: As Per HPI - Musculoskeletal Musculoskeletal: As Par HPI - Integumentary Integumentary: As Per HPI - Neurological Neurological: As Per HPI - Psychiatric Psychiatric: As Per HPI - Endocrine Endocrine: As Per HPI - Hematologic/Lymphatic Hematologic: As Per HPI Mental Status Examination - Personal Presentation Personal Presentation: Looks stated age - Affect Affect: Flat - Motor Activity Motor Activity: Calm - Reliability in Providing Information Reliability in Providing Information: Poor, due to alteration in thoughts, Poor , due to altered mood - Speech Speech: Disorganized - Mood Mood: Neutral - Formal Thought Process Formal Thought Process: Hallucinations - Hallucinations/Delusions Hallucinations: Visual - Cognitive Functions Orientation: Person, Place Sensorium: Alert Attention/Concentration: Easily distracted Abstract Thinking: [place] Estimate of Intelligence: Below average - Risk Risk: Diminished functioning - Strength & Assets Inventory Strength & Assets Inventory: Cooperative - Limitations Limitations: Other (multiple medical issues) DSM 5 DX - DSM 5 DSM 5 Diagnosis: rule out schizoaffective disorder, bipolar type Rule out bipolar disorder with psychosis Rule out schizophrenia Rule out delirium rule out paranoid personality disorder - Recommended/Plan of Treatment Treatment Recommendations and Plan of Treatment: milieu, structure, supportive therapy Seroquel was increased to 200 mg at the nighttime for psychosis and mood stabilization All medications from the medical side resumed, We'll consider to reconsult neurology team We'll monitor patient closely Family involvement supervisor cemetery workers evaluation We'll monitor patient closely. Projected ELOS: 7 days Prognosis: guarded Discharge Plan and Discharge Criteria: Pt will be not depressed or manic, will be more hopeful, will be not psychotic or anxious, will be not having thoughts of harming self or others, will be tolerating medications well, will not have major side effects, will be able to function, will not pose threat to self or others. - Smoking Cessation Smoking Cessation Initiated: No Reason for not providing: denied smoking
[2017-04-10] MEDS: QUEtiapine 200 mg XR Tab PO SCH (21:41)
[2017-04-10] MEDS ORDERED: QUEtiapine 150 mg XR Tab PO SCH (22:00)
[2017-04-11] MEDS: Levothyroxine 50 MCG TAB PO SCH (09:14)
[2017-04-11] MEDS: Nystatin-Triamcinolone Ointment(30 gm) TOP SCH ×2 (09:14→17:52)
[2017-04-11] MEDS: POLYETHYLENE GLYCOL 3350 17 GM/Dose PACKET PO SCH ×2 (09:15→17:52)
--- NOTE | 2017-04-11 11:21 | PN ---
SUBJECTIVE: The patient was seen and examined on the inpatient psychiatric unit. No acute events overnight. She remains afebrile and hemodynamically stable. She continues to endorse visual hallucinations and states that she sees spiders above her bed. Otherwise, she denies fevers, chills, rigors, headaches, presyncope or any other visual disturbances. OBJECTIVE: VITAL SIGNS: Temperature 97.7, pulse 65, blood pressure 138/78, respiratory rate 18, and oxygen saturation 95% on room air. GENERAL: Obese woman, lying in bed, in no apparent distress. HEENT: PERRL. EOMI. No scleral icterus. No conjunctival pallor. NECK: No JVD. No bruits. LUNGS: Clear to auscultation. CARDIOVASCULAR: Regular rate and rhythm. Normal S1 and S2. ABDOMEN: Normoactive bowel sounds, soft, nontender, and nondistended. EXTREMITIES: No edema. NEUROLOGIC: Awake, alert, and oriented x3. No focal motor deficits. LABORATORY DATA: No new labs. 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 PLAN: 1. Delirium. Input from Dr. Sima Gómez noted and appreciated. Continue care as per the psychiatric team. 2. Nonobstructive CAD. The patient remains chest pain free, continue with Aspirin 81 mg p.o. daily, Lipitor 40 mg p.o. daily, and Lopressor 25 mg p.o. b.i.d. 3. CHF. She remains clinically euvolemic. Continue her current medications. 4. Type 2 diabetes mellitus. Continue with metformin 500 mg p.o. b.i.d. 5. COPD. The patient remains with stable respiratory status off medications. We will continue to monitor. 6. Hyperlipidemia. Continue with Lipitor 40 mg p.o. daily. 7. Hypothyroidism. Continue with Synthroid 50 mcg p.o. daily. 8. Hypertension. Blood pressure controlled. Continue with current medications. 9. Prophylaxis: GI prophylaxis is not indicated as the patient is eating. DVT prophylaxis is not indicated as the patient is ambulatory. CODE STATUS: Full code. Maurilio Vicente MD [facility]
--- NOTE | 2017-04-11 16:21 | PCM.PYCHPN ---
Psychiatric Progress Note - Psychiatric Progress Note Patient seen today, length of contact: 30 minutes Patient Chief Complaint: "I still see bugs, they have present, I know that they are there" Problems Identified/Issues Discussed: Suicide/ homicide prevention, past psychiatric h/o, current psychiatric symptoms , medical problems, risk/benefits and alternatives of medications, medications compliance, coping strategies, substance abuse h/o, relapse prevention, importance of follow up with psychiatrist and therapist, discharge plan. Medical Problems: As per medical history report patient was started on Neurontin few weeks prior off hallucinations.Patient had urinary tract infection, was on antibiotics on the medical side, patient also has obesity, diabetes, hyperlipidemia, hypertension, hypothyroidism, medical consultation appreciated. Diagnostic Results: Lab Results 04/10/17 07:50: RPR Nonreactive Vital Signs Temp Pulse Pulse Resp BP Pulse Ox 04/11/17 06:00 97.7 F 65 18 138/78 95 04/10/17 16:11 60 101/44 L 04/10/17 07:20 97.6 F 66 20 130/110 H 04/09/17 18:05 60 20 04/09/17 17:53 60 122/54 L DSM 5 Symptoms Update: shortly patient is a 72 year old female, as per family report most likely patient has history of bipolar disorder which was untreated for years, history of possible paranoid personality disorder, no previous history of psychiatric admissions, patient lives in [place] with her family, was brought to the hospital for evaluation of visual hallucinations, recently patient was started Neurontin, as well as found to have urinary tract infection, patient had treatment on the medical side, then was transferred to the psychiatric inpatient unit for further evaluation and stabilization, medication titration, patient was not willing to be f/u with psychiatrist in the community, patient had history of aggressive behavior at home, patient's family didn't feel comfortable to take patient back home, patient signed consent for treatment into the psychiatric inpatient unit. patient was seen at the dining area, presented to have acceptable personal hygiene, has long calm may hair, intermittent eye contact, fair ADLs. Patient obviously is paranoid, suspicious, guarded, but more pleasant, patient reported to have a good night sleep, patient gave permission to speak to the family, will give contact patient sister. Patient was evaluated by neurology team on the medical side, did not find neurological deficits, no memory problems. pt denied being depressed, denied thoughts of harming herself or others. Patient denied feeling anxious, denied panic attacks, denied abuse. patient tolerates medications well, no side effects observed or reported, aims 0 , no EPS. As per staff report, patient is calm, corporative, socially appropriate. Impression: Rule out schizoaffective disorder Rule out schizophrenia Rule out paranoid personality disorder Delirium is improving Medication Change: Yes (Seroquel was increased yesterday) Medical Record Reviewed: Yes Consults ordered or reviewed: medical consult appreciated, see notes for more detailed information Mental Status Examination - Cognitive Function Orientation: Person, Place Memory: Intact Attention: Poor Concentration: Poor Association: Loose Fund of Knowledge: WNL - Mood Mood: Neutral - Affect Affect: Flat - Speech Speech: Appropriate - Formal Thought Process Formal Thought Process: Hallucinations - Suicidal Ideation Suicidal Ideation: No - Homicidal Ideation Homicidal Ideation: No Goal/Treatment Plan - Goal/Treatment Plan Need for Continued Stay: Remain at risks for inpatient hospitalization, Severe depression anxiety, Discharge may exacerbated symptoms, Severe functional impairment Progress Toward Problem(s) and Goals/Treatment Plan: milieu, structure, supportive therapy Seroquel XL200 mg at the nighttime for psychosis and mood stabilization All medications from the medical side resumed, We'll consider to reconsult neurology team We'll monitor patient closely Family involvement ornamental bronze worker evaluation We'll monitor patient closely. will call sister tomorrow Estimated Date of D/C: 04/15/17
[2017-04-11] MEDS: QUEtiapine 200 mg XR Tab PO SCH (22:14)
[2017-04-12] MEDS: Levothyroxine 50 MCG TAB PO SCH (06:35)
[2017-04-12] MEDS: POLYETHYLENE GLYCOL 3350 17 GM/Dose PACKET PO SCH ×2 (09:34→16:36)
[2017-04-12] MEDS: Nystatin-Triamcinolone Ointment(30 gm) TOP SCH ×2 (09:52→16:36)
[2017-04-12] MEDS ORDERED: QUEtiapine 200 mg XR Tab PO SCH (14:53)
--- NOTE | 2017-04-12 15:05 | PCM.PYCHPN ---
Psychiatric Progress Note - Psychiatric Progress Note Patient seen today, length of contact: 30 minutes Patient Chief Complaint: "I still see bugs, they have present, I know that they are there" Problems Identified/Issues Discussed: Suicide/ homicide prevention, past psychiatric h/o, current psychiatric symptoms , medical problems, risk/benefits and alternatives of medications, medications compliance, coping strategies, substance abuse h/o, relapse prevention, importance of follow up with psychiatrist and therapist, discharge plan. Medical Problems: As per medical history report patient was started on Neurontin few weeks prior off hallucinations.Patient had urinary tract infection, was on antibiotics on the medical side, patient also has obesity, diabetes, hyperlipidemia, hypertension, hypothyroidism, medical consultation appreciated. Diagnostic Results: Lab Results 04/10/17 07:50: RPR Nonreactive Vital Signs Temp Pulse Pulse Resp BP Pulse Ox 04/11/17 06:00 97.7 F 65 18 138/78 95 04/10/17 16:11 60 101/44 L 04/10/17 07:20 97.6 F 66 20 130/110 H 04/09/17 18:05 60 20 04/09/17 17:53 60 122/54 L Temp Pulse Resp BP Pulse Ox 97.3 F L 66 20 113/62 95 04/12/17 06:55 04/12/17 09:49 04/12/17 06:55 04/12/17 09:49 04/11/17 06:00 DSM 5 Symptoms Update: shortly patient is a 72 year old female, as per family report most likely patient has history of bipolar disorder which was untreated for years, history of possible paranoid personality disorder, no previous history of psychiatric admissions, patient lives in [place] with her family, was brought to the hospital for evaluation of visual hallucinations, recently patient was started Neurontin, as well as found to have urinary tract infection, patient had treatment on the medical side, then was transferred to the psychiatric inpatient unit for further evaluation and stabilization, medication titration, patient was not willing to be f/u with psychiatrist in the community, patient had history of aggressive behavior at home, patient's family didn't feel comfortable to take patient back home, patient signed consent for treatment into the psychiatric inpatient unit. patient was seen at the treatment team meeting, presented to have improved personal hygiene, took a shower, intermittent eye contact, fair ADLs, pt seems to be better, affect was more reactive. pt said that "I feel better on medications, more relaxed", pt still paranoid and suspicious. pt said to her family that she is assigned to an "electronic treatment", assuming that pt has ECT treatment, which is absolutely incorrect. pt was asked to sign electronic treatment plan. this designer/writer called pt's sister Cristiane, pt gave permission, sister was "very upset what is going on with electronic treatment", this designer/writer explained sister that NO ECT treatment was even offered. d/w PMD as well still pt and sister are suspicious. family requested a copy of tx plan "I want to see what is going on, may be I need to call my entertainment lawyer", RN was advised to make a copy of tx plan, pt's sister was advised to look for legal advises if they feel like they need to. pt still has visual hallucinations "one particular creature is following me, I saw it on the door". pt denied being depressed, denied thoughts of harming herself or others. Patient denied feeling anxious, denied panic attacks, denied abuse. patient tolerates medications well, no side effects observed or reported, aims 0 , no EPS. As per staff report, patient is calm, corporative, socially appropriate. Impression: Rule out schizoaffective disorder Rule out schizophrenia Rule out paranoid personality disorder Delirium is improving Medication Change: Yes (Seroquel was increased) Medical Record Reviewed: Yes Consults ordered or reviewed: medical consult appreciated, see notes for more detailed information Mental Status Examination - Cognitive Function Orientation: Person, Place Memory: Intact Attention: Poor (some improvement) Concentration: Poor (some improvement) Association: Loose (some improvement) Fund of Knowledge: WNL - Mood Mood: Neutral - Affect Affect: Flat - Speech Speech: Appropriate - Formal Thought Process Formal Thought Process: Hallucinations - Suicidal Ideation Suicidal Ideation: No - Homicidal Ideation Homicidal Ideation: No Goal/Treatment Plan - Goal/Treatment Plan Need for Continued Stay: Remain at risks for inpatient hospitalization, Severe depression anxiety, Discharge may exacerbated symptoms, Severe functional impairment Progress Toward Problem(s) and Goals/Treatment Plan: milieu, structure, supportive therapy Seroquel XL300 mg at the nighttime for psychosis and mood stabilization All medications from the medical side resumed, We'll consider to reconsult neurology team We'll monitor patient closely Family involvement tin recovery worker evaluation We'll monitor patient closely. collaterals from sister appreciated, as per sister pt "is doing much better, now I could see that she is open for therapy and medications", pt's family wants pt to be "more confident to take her medications", from family pt is not ready for d/c. Estimated Date of D/C: 04/15/17
[2017-04-12] MEDS ORDERED: QUEtiapine 300 mg XR Tab PO SCH (22:00)
[2017-04-13] MEDS: Levothyroxine 50 MCG TAB PO SCH (07:20)
--- NOTE | 2017-04-13 08:26 | PN ---
SUBJECTIVE: The patient is seen and examined at bedside on the inpatient psychiatric unit. No acute events overnight. She remains afebrile and hemodynamically stable. She is presently undergoing treatment for ongoing visual and auditory hallucinations. She states that she feels her usual self this morning, and denies any specific complaints. OBJECTIVE: VITAL SIGNS: Temperature 98.1, pulse 56, blood pressure 106/43, respiratory rate 20, and oxygen saturation 96% on room air. GENERAL: Obese woman, lying in bed, in no apparent distress. HEENT: PERRL. EOMI. No scleral icterus. No conjunctival pallor. NECK: No JVD. No bruits. LUNGS: Clear to auscultation. CARDIOVASCULAR: Regular rate and rhythm. Normal S1 and S2. ABDOMEN: Normal active bowel sounds, soft, nontender, and nondistended. EXTREMITIES: No edema. NEUROLOGIC: Awake, alert, and oriented x3. No focal motor deficits. LABORATORY DATA: No new labs. ASSESSMENT: The patient is a 72-year-old woman with multiple medical comorbidities including type 2 diabetes with diabetic neuropathy, hypothymism, hyperlipidemia and chronic obstructive pulmonary disease, who presented to [facility] for evaluation of auditory and visual hallucinations and who remains on the inpatient psychiatric unit for continued management of probable schizoaffective disorder and paranoid personality disorder. PLAN: 1. Auditory/visual hallucinations, rule out schizoaffective disorder. Continue with care as per Dr. Sima Gómez and the psychiatric team. 2. Nonobstructive CAD. The patient remains chest pain free, continue with aspirin 81 mg p.o. daily, Lipitor 40 mg p.o. daily, and Lopressor 25 mg p.o. b.i.d. 3. CHF. The patient remains clinically euvolemic. Continue with current medications. 4. Type 2 diabetes mellitus. Continue with metformin 500 mg p.o. b.i.d. 5. COPD. Continue to monitor respiratory status as she remains stable off medication. 6. Hyperlipidemia. Continue with Lipitor 40 mg p.o. daily. 7. Hypothyroidism. Continue with Synthroid 50 mcg p.o. daily. 8. Hypertension. Blood pressure controlled. Continue with current medications. 9. Prophylaxis: GI prophylaxis is not indicated as the patient is eating. DVT prophylaxis is not indicated as the patient is ambulatory. CODE STATUS: Full code. Maurilio Vicente MD [facility] # [id number]
--- NOTE | 2017-04-13 08:52 | PCM.PYCHPN ---
Psychiatric Progress Note - Psychiatric Progress Note Patient seen today, length of contact: 25 minutes Patient Chief Complaint: Neither hopeful or hopeless Problems Identified/Issues Discussed: I reviewed assessment and recent notes. Patient was interviewed at bedside. She is calm, groomed and oriented to month, location and year. Feels neither hopeful or hopeless. Patient is oddly related with constricted affect. She indicates that she sees bugs scattered on the ceiling. She denies auditory hallucinations, SI or thoughts to harm others. Responses are brief and relevant to questioning. She is preoccupied but not observed to be responding to internal stimuli. She denies any current side effects, new pain or discomfort. Nursing notes indicate that patient has been more visible and has been attending groups. Seroquel held last night due to low BP. There were no behavioral issues overnight Diagnostic Results: Rule out schizoaffective disorder Rule out schizophrenia Rule out paranoid personality disorder Delirium is improving Medication Change: Yes (Seroquel XR 200 mg HS) Medical Record Reviewed: Yes Mental Status Examination - Cognitive Function Orientation: Person, Place Memory: Intact Attention: Poor (some improvement) Concentration: Poor (some improvement) Association: Loose (some improvement) Fund of Knowledge: WNL - Mood Mood: Neutral - Affect Affect: Flat - Speech Speech: Appropriate - Formal Thought Process Formal Thought Process: Hallucinations (She indicates that she sees bugs scattered on the ceiling) - Suicidal Ideation Suicidal Ideation: No - Homicidal Ideation Homicidal Ideation: No Goal/Treatment Plan - Goal/Treatment Plan Need for Continued Stay: Remain at risks for inpatient hospitalization, Severe depression anxiety, Discharge may exacerbated symptoms, Severe functional impairment Progress Toward Problem(s) and Goals/Treatment Plan: * c/w current tx and plan * Decrease Seroquel XR to 200 mg, review of vitals indicated patient tolerated this dose at similar blood pressures 2 days ago * No new weekend labs thus far * Vitals reviewed and noted below: Selected Entries 04/10/17 04/11/17 04/12/17 16:11 06:00 06:55 Temperature 97.7 F 97.3 F L Pulse Rate 60 65 65 Respiratory Rate Blood Pressure 101/44 L 138/78 101/41 L 04/13/17 04/13/17 03:47 07:23 Temperature 98.1 F Pulse Rate 59 L 56 L Respiratory 20 Rate Blood Pressure 107/45 L 106/43 L Estimated Date of D/C: 04/15/17
[2017-04-13] MEDS ORDERED: QUEtiapine 300 mg XR Tab PO SCH (08:56)
[2017-04-13] MEDS: Nystatin-Triamcinolone Ointment(30 gm) TOP SCH ×2 (09:32→15:10)
[2017-04-13] MEDS: POLYETHYLENE GLYCOL 3350 17 GM/Dose PACKET PO SCH ×2 (09:32→09:35)
[2017-04-13] MEDS ORDERED: QUEtiapine 200 mg XR Tab PO SCH (22:00)
[2017-04-14] MEDS: Levothyroxine 50 MCG TAB PO SCH (06:42)
[2017-04-14] MEDS ORDERED: QUEtiapine 200 mg XR Tab PO SCH (08:55)
--- NOTE | 2017-04-14 08:56 | PCM.PYCHPN ---
Psychiatric Progress Note - Psychiatric Progress Note Patient seen today, length of contact: 25 minutes Patient Chief Complaint: Neither hopeful or hopeless Problems Identified/Issues Discussed: I reviewed recent notes and patient was interviewed at bedside. She is calm, groomed and oriented to month, location and year. Reports feeling okay today. Regarding depression, patient states "I don't think so". Patient is oddly related with constricted affect. She indicates that she still sees bugs scattered on the ceiling "they are in different groups". She denies auditory hallucinations, SI or thoughts to harm others. Responses are brief and relevant to questioning. She is preoccupied but not observed to be responding to internal stimuli. She denies any current side effects, new pain or discomfort. Tolerating Seroquel. Nursing notes indicate that patient has been more visible. There were no behavioral issues over the weekend. Diagnostic Results: Rule out schizoaffective disorder Rule out schizophrenia Rule out paranoid personality disorder Delirium is improving Medication Change: Yes (increase Seroquel XR to 300 mg HS) Medical Record Reviewed: Yes Mental Status Examination - Cognitive Function Orientation: Person, Place Memory: Intact Attention: Poor (some improvement) Concentration: Poor (some improvement) Association: Loose (some improvement) Fund of Knowledge: WNL - Mood Mood: Neutral - Affect Affect: Flat - Speech Speech: Appropriate - Formal Thought Process Formal Thought Process: Hallucinations (She indicates that she sees bugs scattered on the ceiling in groups) - Suicidal Ideation Suicidal Ideation: No - Homicidal Ideation Homicidal Ideation: No Goal/Treatment Plan - Goal/Treatment Plan Need for Continued Stay: Remain at risks for inpatient hospitalization, Severe depression anxiety, Discharge may exacerbated symptoms, Severe functional impairment Progress Toward Problem(s) and Goals/Treatment Plan: * c/w current tx and plan * Appreciate f/u by Dr. Vicente on 04/13/17~no new recommendations * Increase Seroquel XR back to 300 mg on 04/13/17, vitals are improving. Patient is tolerating dose of 200 mg well. * No new weekend labs * Vitals reviewed and noted below: Selected Entries 04/13/17 04/13/17 07:23 16:00 Temperature 98.1 F Pulse Rate 56 L 62 Respiratory 20 Rate Blood Pressure 106/43 L 125/67 Estimated Date of D/C: 04/15/17
[2017-04-14] MEDS: POLYETHYLENE GLYCOL 3350 17 GM/Dose PACKET PO SCH ×2 (09:35→15:10)
[2017-04-14] MEDS: Nystatin-Triamcinolone Ointment(30 gm) TOP SCH ×2 (09:36→17:36)
[2017-04-14] MEDS: QUEtiapine 300 mg XR Tab PO SCH (21:50)
[2017-04-15] MEDS: Levothyroxine 50 MCG TAB PO SCH (06:21)
[2017-04-15] MEDS: POLYETHYLENE GLYCOL 3350 17 GM/Dose PACKET PO SCH ×2 (08:56→17:31)
--- NOTE | 2017-04-15 09:29 | PN ---
SUBJECTIVE: The patient was seen and examined at bedside on the inpatient psychiatric unit. No acute events overnight. She remains afebrile and hemodynamically stable. She is presently undergoing continued treatment for auditory and visual hallucinations which are slightly improving and states that she feels her usual self and offers no complaints. OBJECTIVE: VITAL SIGNS: Temperature 97.8, pulse 81, blood pressure 120/65, respiratory rate 18, and oxygen saturation 96% on room air. GENERAL: Obese woman, lying in bed, and in no apparent distress. HEENT: PERRL. EOMI. No scleral icterus. No conjunctival pallor. NECK: No JVD. No bruits. LUNGS: Clear to auscultation. CARDIOVASCULAR: Regular rate and rhythm. Normal S1 and S2. ABDOMEN: Normoactive bowel sounds, soft, nontender, and nondistended. EXTREMITIES: No edema. NEUROLOGIC: Awake, alert, and oriented x3. No focal motor deficits. LABORATORY DATA: No new labs. ASSESSMENT: The patient is a 72-year-old woman with multiple medical comorbidities including type 2 diabetes with diabetic neuropathy, hypothyroidism, hyperlipidemia and chronic obstructive pulmonary disease who presents to [facility] for evaluation of auditory and visual hallucinations and who remains on the inpatient psychiatric unit for continued management of probable schizoaffective disorder and paranoid personality disorder. PLAN: 1. Auditory/visual hallucinations, rule out schizoaffective disorder. Continue with care as per Dr. Gao and the psychiatric team. 2. CAD. The patient remains chest pain free, continue with aspirin 81 mg p.o. daily, Lipitor 40 mg p.o. daily, and Lopressor 25 mg p.o. b.i.d. 3. CHF. The patient remains clinically euvolemic. Continue with current medications. 4. Type 2 diabetes mellitus. Continue with metformin 500 mg p.o. b.i.d. 5. COPD. 6. Hyperlipidemia. Continue with Lipitor 40 mg p.o. daily. 7. Hypothyroidism. Continue with Synthroid 50 mcg p.o. daily. 8. Hypertension. Blood pressure controlled. Continue with current medications. 9. Prophylaxis: GI prophylaxis is not indicated as the patient is eating. DVT prophylaxis is not indicated as the patient is ambulatory. CODE STATUS: Full code. Maurilio Vicente MD [facility] # [id number] [facility]
[2017-04-15] MEDS: Nystatin-Triamcinolone Ointment(30 gm) TOP SCH ×2 (10:14→17:28)
--- NOTE | 2017-04-15 11:45 | CP.PCM.PN ---
Subjective - Date & Time of Evaluation Date of Evaluation: 04/15/17 Time of Evaluation: 11:30 - Subjective Subjective: CODE STAR was called and resident responded STAT. pt in psych unit, room 513, noted to be sitting down on the floor in the bathroom, with a towel on. Pt states that she was in the shower and was getting out when she slipped on the wet floor and fell back, hitting her head. pt denied LOC or "seeing stars". unit staff were quick to respond, and pt was assessed while still on the floor and found to be able to move 4 extremities without pain and with no obvious bleeding/head trauma. pt was helped into chair, and sent for imaging. Objective - Vital Signs/Intake and Output Vital Signs (last 24 hours): Temp Pulse Resp BP Pulse Ox 97.8 F 64 18 103/80 95 04/14/17 07:05 04/15/17 08:55 04/14/17 07:05 04/15/17 08:55 04/11/17 06:00 - Medications Medications: Current Medications Acetaminophen (Tylenol 325mg Tab) 650 mg PO Q4H PRN PRN Reason: Pain, Mild (1-3) Aspirin (Aspirin Chewable) 81 mg PO DAILY [facility] Last Admin: 04/15/17 08:54 Dose: 81 mg Atorvastatin Calcium (Lipitor) 40 mg PO DIN [facility] Last Admin: 04/14/17 17:36 Dose: 40 mg Cyclobenzaprine HCl (Flexeril) 5 mg PO TID [facility] Last Admin: 04/15/17 08:53 Dose: 5 mg Levothyroxine Sodium (Synthroid) 50 mcg PO 0600 [facility] Last Admin: 04/15/17 06:21 Dose: 50 mcg Lisinopril (Zestril) 10 mg PO DAILY [facility] Last Admin: 04/15/17 08:54 Dose: 10 mg Metformin HCl (Glucophage) 500 mg PO BID [facility] Last Admin: 04/15/17 08:54 Dose: 500 mg Metoprolol Tartrate (Lopressor) 25 mg PO BID [facility] Last Admin: 04/15/17 08:55 Dose: 25 mg Nystatin/Triamcinolone Acetonide (Nystatin/Triamcinolone Ointment) 0 gm TOP BID [facility] Last Admin: 04/15/17 10:14 Dose: 1 applic Polyethylene Glycol (Miralax) 17 gm PO BID [facility] Last Admin: 04/15/17 08:56 Dose: 17 gm Quetiapine Fumarate (Seroquel Xr) 300 mg PO HS [facility] Last Admin: 04/14/17 21:50 Dose: 300 mg - Constitutional Appears: Well, No Acute Distress - Head Exam Head Exam: ATRAUMATIC, NORMAL INSPECTION - Eye Exam Eye Exam: EOMI, Normal appearance - Neck Exam Neck Exam: Full ROM. absent: Tenderness - Respiratory Exam Respiratory Exam: NORMAL BREATHING PATTERN - Cardiovascular Exam Cardiovascular Exam: RRR - GI/Abdominal Exam GI & Abdominal Exam: Soft. absent: Tenderness Additional comments: obese habitus - Extremities Exam Extremities Exam: Full ROM. absent: Tenderness - Back Exam Back Exam: NORMAL INSPECTION. absent: tenderness, vertebral tenderness Additional comments: no step-offs noted - Neurological Exam Neurological Exam: Alert, Awake, Oriented x3 Neuro motor strength exam: Left Upper Extremity: 5, Right Upper Extremity: 5, Left Lower Extremity: 5, Right Lower Extremity: 5 - Skin Skin Exam: absent: Erythema Additional comments: wet from shower Assessment and Plan - Assessment and Plan (Free Text) Assessment: 72 yo F admitted to psych unit, fell while coming out of the shower. CODE STAR called. No obvious trauma or hemorrhage noted. Plan: 1. CODE STAR s/p fall - CT head STAT - Hip b/l XRay STAT - Labs: CBC, CMP, mag, phos, glucose In case of any findings on the imaging/labs, please contact the appropriate team for care Rao Vargas PGY1
--- NOTE | 2017-04-15 12:31 | CT ---
PROCEDURE: CT HEAD WITHOUT CONTRAST. HISTORY: s/p fall COMPARISON: None available. TECHNIQUE: Axial computed tomography images were obtained through the head/brain without intravenous contrast. Radiation dose: Total exam DLP = 746 mGy-cm. This CT exam was performed using one or more of the following dose reduction techniques: Automated exposure control, adjustment of the mA and/or kV according to patient size, and/or use of iterative reconstruction technique. FINDINGS: HEMORRHAGE: No intracranial hemorrhage. BRAIN: No mass effect or edema. No atrophy or chronic microvascular ischemic changes. VENTRICLES: Unremarkable. No hydrocephalus. CALVARIUM: Unremarkable. PARANASAL SINUSES: Unremarkable as visualized. No significant inflammatory changes. MASTOID AIR CELLS: Unremarkable as visualized. No inflammatory changes. OTHER FINDINGS: None. IMPRESSION: Normal CT of the Head.
[2017-04-15 13:59] LABS: BASO # 0.04 K/mm3 (0.0-2.0); BASO % 0.7 % (0.0-3.0); EOS # 0.2 (0.0-0.7); EOS % 3.6 % (1.5-5.0); GRAN # 4.29 (1.4-6.5); GRAN % 72.5 % (50.0-68.0); HEMATOCRIT 38.2 % (36.0-48.0); LYMPH # 1.1 (1.2-3.4); LYMPH % 17.8 % (22.0-35.0); MEAN CELL VOLUME 96.2 fl (80.0-105.0); MEAN CORPUSCULAR HGB CONC 32.2 g/dl (31.0-37.0); MEAN PLATELET VOLUME 10.2 fl (7.0-11.0); MONO # 0.3 (0.1-0.6); MONO % 5.4 % (1.0-6.0); RED CELL DISTRIBUTION WIDTH 14.5 % (11.5-14.5); WHITE BLOOD COUNT 5.9 10^3/ul (4.5-11.0)
[2017-04-15 14:05] LABS: ALB/GLOB RATIO 1.5 (1.1-1.8); BILIRUBIN,TOTAL 0.5 mg/dL (0.2-1.3); CALCIUM 8.9 mg/dL (8.4-10.5); MAGNESIUM 1.8 mg/dL (1.7-2.2); PHOSPHOROUS 3.3 mg/dL (2.5-4.5); POTASSIUM 5.1 mmol/L (3.6-5.0); TOTAL PROTEIN 6.7 g/dL (5.8-8.3)
--- NOTE | 2017-04-15 14:05 | RAD ---
PROCEDURE: Radiographs of the pelvis. HISTORY: s/p fall COMPARISON: None. FINDINGS: BONES: The pelvic ring is intact. There is no acute displaced fracture or bone destruction JOINTS: There is mild degenerative osteoarthrosis in the hip and sacroiliac joints. OTHER FINDINGS: None. IMPRESSION: No acute displaced fracture or dislocation. Please note occult fractures cannot be excluded on plain radiographs. If there is a persistent clinical concern, an MRI of the hip may be performed for further evaluation.
--- NOTE | 2017-04-15 17:31 | PCM.PYCHPN ---
Psychiatric Progress Note - Psychiatric Progress Note Patient seen today, length of contact: 30 minutes Patient Chief Complaint: "I M not ready to be discharged, I feel safe in here" Problems Identified/Issues Discussed: Suicide/ homicide prevention, past psychiatric h/o, current psychiatric symptoms , medical problems, risk/benefits and alternatives of medications, medications compliance, coping strategies, substance abuse h/o, relapse prevention, importance of follow up with psychiatrist and therapist, discharge plan. Medical Problems: As per medical history report patient was started on Neurontin few weeks prior off hallucinations.Patient had urinary tract infection, was on antibiotics on the medical side, patient also has obesity, diabetes, hyperlipidemia, hypertension, hypothyroidism, medical consultation appreciated. Diagnostic Results: Lab Results 04/10/17 07:50: RPR Nonreactive Vital Signs Temp Pulse Pulse Resp BP Pulse Ox 04/11/17 06:00 97.7 F 65 18 138/78 95 04/10/17 16:11 60 101/44 L 04/10/17 07:20 97.6 F 66 20 130/110 H 04/09/17 18:05 60 20 04/09/17 17:53 60 122/54 L Temp Pulse Resp BP Pulse Ox 97.3 F L 66 20 113/62 95 04/12/17 06:55 04/12/17 09:49 04/12/17 06:55 04/12/17 09:49 04/11/17 06:00 04/15/17 13:45 04/15/17 13:45 Lab Results 04/15/17 16:01: POC Glucose (mg/dL) 146 H 04/15/17 13:45: Sodium 137, Potassium 5.1 H, Chloride 101, Carbon Dioxide 26, Anion Gap 15, BUN 30 H, Creatinine 1.4, Est GFR ( Amer) 45, Est GFR (Non- Af Amer) 37, Random Glucose 133 H, Calcium 8.9, Phosphorus 3.3, Magnesium 1.8, Total Bilirubin 0.5, AST 39 H, ALT 57 H, Alkaline Phosphatase 92, Total Protein 6.7, Albumin 4.0, Globulin 2.7, Albumin/Globulin Ratio 1.5 04/15/17 13:45: WBC 5.9, RBC 3.97, Hgb 12.3, Hct 38.2, MCV 96.2, MCH 31.0, MCHC 32.2, RDW 14.5, Plt Count 222, MPV 10.2, Gran % 72.5 H, Lymph % (Auto) 17.8 L, Garden % (Auto) 5.4, Eos % (Auto) 3.6, Baso % (Auto) 0.7, Gran # 4.29, Lymph # 1.1 L, Garden # 0.3, Eos # 0.2, Baso # 0.04 04/15/17 11:43: POC Glucose (mg/dL) 158 H 04/15/17 07:48: POC Glucose (mg/dL) 114 H 04/13/17 23:04: POC Glucose (mg/dL) 144 H 04/12/17 22:13: POC Glucose (mg/dL) 207 H 04/12/17 16:49: POC Glucose (mg/dL) 141 H 04/12/17 12:05: POC Glucose (mg/dL) 171 H 04/12/17 07:29: POC Glucose (mg/dL) 115 H 04/11/17 16:27: POC Glucose (mg/dL) 91 04/10/17 07:50: RPR Nonreactive Temp Pulse Resp BP Pulse Ox 97.8 F 62 18 86/43 L 95 04/14/17 07:05 04/15/17 16:08 04/14/17 07:05 04/15/17 16:08 04/11/17 06:00 CT scan of the head was done 04/15/17 status post fall, no acute changes X-ray of the hips was done 04/15/17 no acute changes, no fracture, no dislocation DSM 5 Symptoms Update: shortly patient is a 72 year old female, as per family report most likely patient has history of bipolar disorder which was untreated for years, history of possible paranoid personality disorder, no previous history of psychiatric admissions, patient lives in [place] with her family, was brought to the hospital for evaluation of visual hallucinations, recently patient was started Neurontin, as well as found to have urinary tract infection, patient had treatment on the medical side, then was transferred to the psychiatric inpatient unit for further evaluation and stabilization, medication titration, patient was not willing to be f/u with psychiatrist in the community, patient had history of aggressive behavior at home, patient's family didn't feel comfortable to take patient back home, patient signed consent for treatment into the psychiatric inpatient unit. patient was seen s/p fall today. as per report pt wanted to take a shower, PCP asked to wait for a minute and went to take some towels when PCP came back pt was found on the floor, pt attempted to take a shower, slopped on the floor and fell, code "star" was called, vitals were WNL, medical supply technician assessed pt discussed with pt's PMD , CT of the head done WNL, XR of hips done WNL, family notified, pt' s sister came to the unit. pt was advised to wait for the staff to assist pt, pt also was advised ambulate slowly, meds reviewed, but from this public relations writer impression it was mechanical fall. patient was reassessed within one hour, patient comfortably laying on bad, no change in mental status, patient reported that her visual hallucinations are improving, steal patient complains of some bogs calming from the ceiling, patient denied being scared, denied bugs were attacking her, patient was not actively hallucinating tearing assessment. Patient also said "I don't feel is related to be discharged, I feel very comfortable and safe here". Patient family seems to be very involved into the pt's care, at the same time very demanding and intrusive, pt's sister had assumption that pt was having ECT tx, which is absolutely incorrect. as per pt's sister Cristiane request Smiley Thomas was involved and phone conference call took place 04/15/17 with JOSE, Smiley Thomas, pt's sister Cristiane and this public relations writer: "she is doing much better, more relaxed" but "not ready for discharge because I did not buy her a bed yet and Sia cannot stay in my house, moreover I cannot watch her". of note pt was functioning independently prior to come to the hospital. jose left a message to Cristiane for potential d/c for today, but family said "we did not get that message", at the same time it seems it would be not safe discharge, will hold it for now. All needs addressed, questions answered, still pt's sister was unsatisfied. pt denied being depressed, denied thoughts of harming herself or others. Patient denied feeling anxious, denied panic attacks, denied abuse. patient tolerates medications well, no side effects observed or reported, aims 0 , no EPS. As per staff report, patient is calm, corporative, socially appropriate. Impression: Rule out schizoaffective disorder Rule out schizophrenia Rule out paranoid personality disorder Delirium is improving Medication Change: Yes (increase Seroquel XR to 300 mg HS) Medical Record Reviewed: Yes Consults ordered or reviewed: medical consult appreciated, see notes for more detailed information Mental Status Examination - Cognitive Function Orientation: Person, Place Memory: Intact Attention: Poor (some improvement) Concentration: Poor (some improvement) Association: Loose (some improvement) Fund of Knowledge: WNL - Mood Mood: Neutral - Affect Affect: Flat - Speech Speech: Appropriate - Formal Thought Process Formal Thought Process: Hallucinations (She indicates that she sees bugs scattered on the ceiling in groups) - Suicidal Ideation Suicidal Ideation: No - Homicidal Ideation Homicidal Ideation: No Goal/Treatment Plan - Goal/Treatment Plan Need for Continued Stay: Remain at risks for inpatient hospitalization, Severe depression anxiety, Discharge may exacerbated symptoms, Severe functional impairment Progress Toward Problem(s) and Goals/Treatment Plan: milieu, structure, supportive therapy Seroquel XL300 mg at the nighttime for psychosis and mood stabilization All medications from the medical side resumed, We'll consider to reconsult neurology team We'll monitor patient closely Family involvement animal husbandry worker evaluation We'll monitor patient closely. we'll hold discharged today, patient's family refused to accept patient back, said that patient does not have bad in her apartment. Estimated Date of D/C: 04/17/17
[2017-04-15] MEDS: QUEtiapine 300 mg XR Tab PO SCH (22:13)
[2017-04-16] MEDS: Levothyroxine 50 MCG TAB PO SCH (07:08)
[2017-04-16] MEDS: Nystatin-Triamcinolone Ointment(30 gm) TOP SCH ×2 (09:02→16:46)
[2017-04-16] MEDS: POLYETHYLENE GLYCOL 3350 17 GM/Dose PACKET PO SCH ×2 (09:06→16:46)
--- NOTE | 2017-04-16 10:58 | PN ---
SUBJECTIVE: The patient was seen and examined at bedside on the inpatient psychiatric unit. No acute events overnight. Yesterday in the early afternoon she sustained a mechanical fall while showering. She was evaluated by the medical imaging technician (Dr. Vargas) and physical examination at the time was unremarkable. A CT of head and an x-ray of the pelvis were ordered, both of which were unremarkable. This morning the patient denies any pain or sequelae from her fall and overall states she feels okay. OBJECTIVE: VITAL SIGNS: Temperature 97, pulse 52, blood pressure 136/80, respiratory rate 20, oxygen saturation 98% on room air. GENERAL: No apparent distress. HEENT: Normocephalic, atraumatic, PERRL, EOMI. No scleral icterus. No conjunctival pallor. NECK: Supple with full range of motion. No JVD. No bruits. LUNGS: Clear to auscultation. CARDIOVASCULAR: Regular rate rhythm. Normal S1 and S2. ABDOMEN: Normoactive bowel sounds, soft, nontender, nondistended. EXTREMITIES: No joint deformities, full range of motion in all extremities. No edema. NEUROLOGIC: Awake, alert and oriented x3. No focal motor deficits. LABORATORY DATA: No new labs. ASSESSMENT: The patient is a 72-year-old woman with multiple medical comorbidities including type 2 diabetes mellitus with diabetic neuropathy, hypothyroidism, hyperlipidemia and chronic obstructive pulmonary disease who presented to the [facility] for evaluation of auditory and visual hallucinations and remains on the inpatient psychiatric unit for continued management of probable schizoaffective disorder and paranoid personality disorder. PLAN: 1. Auditory/visual hallucinations, rule out schizoaffective disorder. Continue with care as per Dr. Sima Gómez. 2. CAD. Continue with aspirin 81 mg p.o. daily, Lipitor 40 mg p.o. daily and Lopressor 25 mg p.o. b.i.d. 3. CHF. The patient remains clinically euvolemic. Continue with current regimen. 4. Type 2 diabetes mellitus with diabetic neuropathy. Continue with metformin 500 mg p.o. b.i.d. 5. COPD. 6. Hyperlipidemia. Continue with Lipitor 40 mg p.o. daily. 7. Hypothyroidism. Continue with Synthroid 50 mcg p.o. daily. 8. Hypertension. Blood pressure controlled. Continue with her current medications. 9. Prophylaxis: GI prophylaxis is not indicated as the patient is eating. DVT prophylaxis is not indicated as the patient is ambulatory. CODE STATUS: Full code. Maurilio Vicente MD MTDKristal
--- NOTE | 2017-04-16 14:51 | PCM.PYCHPN ---
Psychiatric Progress Note - Psychiatric Progress Note Patient seen today, length of contact: 30 minutes Patient Chief Complaint: "I am not going to your stupid groups, I am in pain, don't you see that?" Medical Problems: As per medical history report patient was started on Neurontin few weeks prior off hallucinations.Patient had urinary tract infection, was on antibiotics on the medical side, patient also has obesity, diabetes, hyperlipidemia, hypertension, hypothyroidism, medical consultation appreciated. see note for more detailed information. Diagnostic Results: Lab Results 04/10/17 07:50: RPR Nonreactive Vital Signs Temp Pulse Pulse Resp BP Pulse Ox 04/11/17 06:00 97.7 F 65 18 138/78 95 04/10/17 16:11 60 101/44 L 04/10/17 07:20 97.6 F 66 20 130/110 H 04/09/17 18:05 60 20 04/09/17 17:53 60 122/54 L Temp Pulse Resp BP Pulse Ox 97.3 F L 66 20 113/62 95 04/12/17 06:55 04/12/17 09:49 04/12/17 06:55 04/12/17 09:49 04/11/17 06:00 04/15/17 13:45 04/15/17 13:45 Lab Results 04/15/17 16:01: POC Glucose (mg/dL) 146 H 04/15/17 13:45: Sodium 137, Potassium 5.1 H, Chloride 101, Carbon Dioxide 26, Anion Gap 15, BUN 30 H, Creatinine 1.4, Est GFR ( Amer) 45, Est GFR (Non- Af Amer) 37, Random Glucose 133 H, Calcium 8.9, Phosphorus 3.3, Magnesium 1.8, Total Bilirubin 0.5, AST 39 H, ALT 57 H, Alkaline Phosphatase 92, Total Protein 6.7, Albumin 4.0, Globulin 2.7, Albumin/Globulin Ratio 1.5 04/15/17 13:45: WBC 5.9, RBC 3.97, Hgb 12.3, Hct 38.2, MCV 96.2, MCH 31.0, MCHC 32.2, RDW 14.5, Plt Count 222, MPV 10.2, Gran % 72.5 H, Lymph % (Auto) 17.8 L, Hendricks % (Auto) 5.4, Eos % (Auto) 3.6, Baso % (Auto) 0.7, Gran # 4.29, Lymph # 1.1 L, Hendricks # 0.3, Eos # 0.2, Baso # 0.04 04/15/17 11:43: POC Glucose (mg/dL) 158 H 04/15/17 07:48: POC Glucose (mg/dL) 114 H 04/13/17 23:04: POC Glucose (mg/dL) 144 H 04/12/17 22:13: POC Glucose (mg/dL) 207 H 04/12/17 16:49: POC Glucose (mg/dL) 141 H 04/12/17 12:05: POC Glucose (mg/dL) 171 H 04/12/17 07:29: POC Glucose (mg/dL) 115 H 04/11/17 16:27: POC Glucose (mg/dL) 91 04/10/17 07:50: RPR Nonreactive Temp Pulse Resp BP Pulse Ox 97.8 F 62 18 86/43 L 95 04/14/17 07:05 04/15/17 16:08 04/14/17 07:05 04/15/17 16:08 04/11/17 06:00 CT scan of the head was done 04/15/17 status post fall, no acute changes X-ray of the hips was done 04/15/17 no acute changes, no fracture, no dislocation Abnormal Lab Results 04/15/17 04/15/17 04/16/17 16:01 22:01 07:30 POC Glucose (mg/dL) 146 H 147 H 133 H 04/16/17 11:13 POC Glucose (mg/dL) 130 H DSM 5 Symptoms Update: shortly patient is a 72 year old female, as per family report most likely patient has history of bipolar disorder which was untreated for years, history of possible paranoid personality disorder, no previous history of psychiatric admissions, patient lives in [place] with her family, was brought to the hospital for evaluation of visual hallucinations, recently patient was started Neurontin, as well as found to have urinary tract infection, patient had treatment on the medical side, then was transferred to the psychiatric inpatient unit for further evaluation and stabilization, medication titration, patient was not willing to be f/u with psychiatrist in the community, patient had history of aggressive behavior at home, patient's family didn't feel comfortable to take patient back home, patient signed consent for treatment into the psychiatric inpatient unit. patient was seen today in her room with the RN Rene. pt is irritable today, said "I am not going to your stupid groups, I am in pain , don't you see that?" when pt was asked about hallucinations, pt was not able to process the question for a while, this telegraphic typewriter operator repeated herself for four times, pt then said "ah, bugs , I didn't see bugs today". as per RN report pt was not psychotic, but more irritable. Patient denied feeling anxious, denied panic attacks, slept well at night. patient tolerates medications well, no side effects observed or reported, aims 0 , no EPS. MSE: Pt was alert, oriented in self, time and place. Pt deemed to be unreliable historian (when was asked about hallucinations, pt was not able to answer), pt was irritable towards this telegraphic typewriter operator. Pt looks stated age, acceptable personal hygiene, poor ADLs, there is no psychomotor agitation/retardation, speech was: loud and underproductive , eye contact: intense, mood described: "I am not doing well, don't you see that?", affect: irritable, mood congruent, thought process: concrete, thought content: , denied SI/ HI, denied v/a/t hallucinations , denied paranoid ideation and pt does not appear to be internally preoccupied or responding to internal stimuli, insight: is improving, judgment: fair , impulses are well controlled, but at times pt is irritable. Pt tolerates meds well, no side effects observed or reported, AIMS 0, no EPS Impression: DSM V: Rule out schizoaffective disorder Rule out schizophrenia Rule out paranoid personality disorder Delirium improved Plan: Milieu/structure/supportive therapy Medical consult appreciated, see medical team note for more detailed info SW consultation for discharge plan and social issues, pt was referred to home care [facility] Med management Seroquel XL will be increased to 400 mg at the nighttime for psychosis and mood stabilization Family involvement, pt's sister Cristiane is very involved into the pt's care. Follow up on labs Will monitor closely Pt was educated about risk/benefits and alternatives of medications, coping strategies (safety plan, suicide prevention), relapse prevention, importance of follow up with psychiatrist and therapist, stay away from drugs/alcohol/smoking Medication Change: Yes (increase Seroquel XR to 400 mg HS) Medical Record Reviewed: Yes Consults ordered or reviewed: medical consult appreciated, see notes for more detailed information Goal/Treatment Plan - Goal/Treatment Plan Need for Continued Stay: Remain at risks for inpatient hospitalization, Severe depression anxiety, Discharge may exacerbated symptoms, Severe functional impairment Estimated Date of D/C: 04/17/17
[2017-04-16] MEDS: QUEtiapine 200 mg XR Tab PO SCH (22:07)
[2017-04-17] MEDS: Levothyroxine 50 MCG TAB PO SCH (07:23)
[2017-04-17] MEDS: POLYETHYLENE GLYCOL 3350 17 GM/Dose PACKET PO SCH ×2 (09:00→17:51)
[2017-04-17] MEDS: Nystatin-Triamcinolone Ointment(30 gm) TOP SCH ×2 (09:02→17:51)
--- NOTE | 2017-04-17 10:23 | PN ---
SUBJECTIVE: The patient was seen and examined at bedside on the inpatient psychiatric unit. No acute events overnight. This morning the patient appears more irritable than previously and states that she is frustrated with the need for continued group meetings. She also reports mild pain at her hips due to the mechanical fall she sustained yesterday while showering but declines any further analgesic medicines as her pain is adequately controlled with the Tylenol. Otherwise she reports that the hallucinations persist and offers no further complaints. OBJECTIVE: VITAL SIGNS: Temperature 97.9, pulse 62, blood pressure 135/68, respiratory rate 18, oxygen saturation 100% on room air. GENERAL: No apparent distress. HEENT: PERRL. EOMI. No scleral icterus. No conjunctival pallor. NECK: No JVD. No bruits. LUNGS: Clear to auscultation. CARDIOVASCULAR: Regular rate and rhythm. Normal S1 and S2. ABDOMEN: Normoactive bowel sounds. Soft, nontender, nondistended. EXTREMITIES: No edema. NEUROLOGIC: Awake, alert and oriented x3. No focal motor deficits. LABORATORY DATA: No new labs. ASSESSMENT: The patient is a 72-year-old woman with multiple medical comorbidities including type 2 diabetes mellitus with diabetic neuropathy, hypothyroidism, hyperlipidemia and COPD who presented to [facility] for evaluation of auditory and visual hallucinations and who remains on the inpatient psychiatric unit for continued management of probable schizoaffective disorder and paranoid personality disorder. PLAN: 1. Auditory/visual hallucinations, rule out schizoaffective disorder, continue with care as per Dr. Sima Gómez. 2. CAD, continue with aspirin 81 mg p.o. daily, Lipitor 40 mg p.o. daily and Lopressor 25 mg p.o. b.i.d. 3. CHF, the patient remains clinically euvolemic. Continue with current regimen. 4. Type 2 diabetes mellitus with diabetic neuropathy, continue with metformin 500 mg p.o. b.i.d. 5. Hyperlipidemia, continue with Lipitor 40 mg p.o. daily. 6. Hypothyroidism, continue with Synthroid 50 mcg p.o. daily. 7. Hypertension. Blood pressure remains stable. Continue with current medications. 8. COPD. 9. Prophylaxis. GI prophylaxis not indicated as the patient is eating. DVT prophylaxis not indicated as the patient is ambulatory. CODE STATUS: Full code. Maurilio Vicente MD [facility] # [id number] DEEP
--- NOTE | 2017-04-17 12:02 | PCM.BM ---
Treatment Plan Problems - Problems identified on initial assessmt hopelessness Date Initiated: 04/09/17 Time Initiated: 16:00 Assessment reference: NA Status: Active Priority: 1 feelings of wortlessness Date Initiated: 04/09/17 Time Initiated: 16:00 Assessment reference: NA Status: Active Priority: 2 nutrition more than body requirement Date Initiated: 04/09/17 Time Initiated: 16:00 Assessment reference: NA Status: Active Priority: 3 social isolation Date Initiated: 04/09/17 Time Initiated: 16:00 Assessment reference: NA Status: Active Priority: 4 self care deficit Date Initiated: 04/09/17 Time Initiated: 16:00 Assessment reference: NA Status: Active Priority: 5 Treatment assets and liabiliti Patient Assests: adapts well, cooperative, educated, self-reliant, good support system, negotiates basic needs Patient Liabilities: live alone, dietary restrictions, medical problems, visual impairment - Milieu Protocol Maintain good personal hygiene: daily Encourage regular showers, daily Remind patient to perform daily oral care, daily Assist patient to perform ADL's Conduct patient checks and document Observation sheet: Q15 minutes Maintain personal safety: every shift Educate patient to report safety concerns to staff, every shift Monitor environment for contraband/sharps Medication safety: Monitor for expected outcome, potential side effects: every shift, Assess barriers to learning: every shift, Assess readiness for medication education: every shift Milieu Narrative: milieu, structure, supportive therapy Seroquel XL300 mg at the nighttime for psychosis and mood stabilization All medications from the medical side resumed, We'll consider to reconsult neurology team We'll monitor patient closely Family involvement ornamental 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 we'll hold discharged today, patient's family refused to accept patient back, said that patient does not have bad in her apartment. Family Contact Family contact: Patient agrees to contact Family contact name: Cecille Haque(sister) Family contacted how many times per week?: 2 Discharge/Continuing Care - Education Needs Education Needs: Patient Medication, Patient Diagnosis/Disease Process, Patient Coping Skills, Patient Activities of Daily Living, Patient Health Practices/ Safety, Patient Personal Hygiene/Grooming - Discharge Discharge Criteria: Tolerates medication w/o severe side effects, Free of Suicidal thoughts, Normal sleep pattern, Ability to care for self - Treatment Team Participation Patient/Family/SO Statement: milieu, structure, supportive therapy Seroquel XL300 mg at the nighttime for psychosis and mood stabilization All medications from the medical side resumed, We'll consider to reconsult neurology team We'll monitor patient closely Family involvement ornamental 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 we'll hold discharged today, patient's family refused to accept patient back, said that patient does not have bad in her apartment. Treatment Plan Review Patient participation: Yes - Problem hopelessness Date Initiated: 04/17/17 Time Initiated: 12:00 Progress toward outcomes: improved feelings of wortlessness Date Initiated: 04/17/17 Time Initiated: 12:00 Progress toward outcomes: improved nutrition more than body requirement Date Initiated: 04/17/17 Time Initiated: 12:00 Progress toward outcomes: improved social isolation Date Initiated: 04/17/17 Time Initiated: 12:00 Progress toward outcomes: improved self care deficit Date Initiated: 04/17/17 Time Initiated: 12:00 Progress toward outcomes: improved
--- NOTE | 2017-04-17 15:55 | PCM.PYCHPN ---
Psychiatric Progress Note - Psychiatric Progress Note Patient seen today, length of contact: 30 minutes Patient Chief Complaint: "I am doing better, I am not depressed, I don't want to harm myself, why you are asking these questions?, I am not seeing anything, I didn't see bugs for the past two days..." Medical Problems: As per medical history report patient was started on Neurontin few weeks prior off hallucinations.Patient had urinary tract infection, was on antibiotics on the medical side, patient also has obesity, diabetes, hyperlipidemia, hypertension, hypothyroidism, medical consultation appreciated. see note for more detailed information. pt had mechanical fall, PT was called for evaluation Diagnostic Results: Lab Results 04/10/17 07:50: RPR Nonreactive Vital Signs Temp Pulse Pulse Resp BP Pulse Ox 04/11/17 06:00 97.7 F 65 18 138/78 95 04/10/17 16:11 60 101/44 L 04/10/17 07:20 97.6 F 66 20 130/110 H 04/09/17 18:05 60 20 04/09/17 17:53 60 122/54 L Temp Pulse Resp BP Pulse Ox 97.3 F L 66 20 113/62 95 04/12/17 06:55 04/12/17 09:49 04/12/17 06:55 04/12/17 09:49 04/11/17 06:00 04/15/17 13:45 04/15/17 13:45 Lab Results 04/15/17 16:01: POC Glucose (mg/dL) 146 H 04/15/17 13:45: Sodium 137, Potassium 5.1 H, Chloride 101, Carbon Dioxide 26, Anion Gap 15, BUN 30 H, Creatinine 1.4, Est GFR ( Amer) 45, Est GFR (Non- Af Amer) 37, Random Glucose 133 H, Calcium 8.9, Phosphorus 3.3, Magnesium 1.8, Total Bilirubin 0.5, AST 39 H, ALT 57 H, Alkaline Phosphatase 92, Total Protein 6.7, Albumin 4.0, Globulin 2.7, Albumin/Globulin Ratio 1.5 04/15/17 13:45: WBC 5.9, RBC 3.97, Hgb 12.3, Hct 38.2, MCV 96.2, MCH 31.0, MCHC 32.2, RDW 14.5, Plt Count 222, MPV 10.2, Gran % 72.5 H, Lymph % (Auto) 17.8 L, [place] % (Auto) 5.4, Eos % (Auto) 3.6, Baso % (Auto) 0.7, Gran # 4.29, Lymph # 1.1 L, [place] # 0.3, Eos # 0.2, Baso # 0.04 04/15/17 11:43: POC Glucose (mg/dL) 158 H 04/15/17 07:48: POC Glucose (mg/dL) 114 H 04/13/17 23:04: POC Glucose (mg/dL) 144 H 04/12/17 22:13: POC Glucose (mg/dL) 207 H 04/12/17 16:49: POC Glucose (mg/dL) 141 H 04/12/17 12:05: POC Glucose (mg/dL) 171 H 04/12/17 07:29: POC Glucose (mg/dL) 115 H 04/11/17 16:27: POC Glucose (mg/dL) 91 04/10/17 07:50: RPR Nonreactive Temp Pulse Resp BP Pulse Ox 97.8 F 62 18 86/43 L 95 04/14/17 07:05 04/15/17 16:08 04/14/17 07:05 04/15/17 16:08 04/11/17 06:00 CT scan of the head was done 04/15/17 status post fall, no acute changes X-ray of the hips was done 04/15/17 no acute changes, no fracture, no dislocation Abnormal Lab Results 04/15/17 04/15/17 04/16/17 16:01 22:01 07:30 POC Glucose (mg/dL) 146 H 147 H 133 H 04/16/17 11:13 POC Glucose (mg/dL) 130 H Laboratory Results - last 72 hr 04/15/17 04/15/17 04/15/17 07:48 11:43 13:45 WBC 5.9 RBC 3.97 Hgb 12.3 Hct 38.2 MCV 96.2 MCH 31.0 MCHC 32.2 RDW 14.5 Plt Count 222 MPV 10.2 Gran % 72.5 H Lymph % (Auto) 17.8 L [place] % (Auto) 5.4 Eos % (Auto) 3.6 Baso % (Auto) 0.7 Gran # 4.29 Lymph # 1.1 L [place] # 0.3 Eos # 0.2 Baso # 0.04 Sodium Potassium Chloride Carbon Dioxide Anion Gap BUN Creatinine Est GFR ( Amer) Est GFR (Non-Af Amer) POC Glucose (mg/dL) 114 H 158 H Random Glucose Calcium Phosphorus Magnesium Total Bilirubin AST ALT Alkaline Phosphatase Total Protein Albumin Globulin Albumin/Globulin Ratio 04/15/17 04/15/17 04/15/17 13:45 16:01 22:01 WBC RBC Hgb Hct MCV MCH MCHC RDW Plt Count MPV Gran % Lymph % (Auto) [place] % (Auto) Eos % (Auto) Baso % (Auto) Gran # Lymph # [place] # Eos # Baso # Sodium 137 Potassium 5.1 H Chloride 101 Carbon Dioxide 26 Anion Gap 15 BUN 30 H Creatinine 1.4 Est GFR ( Amer) 45 Est GFR (Non-Af Amer) 37 POC Glucose (mg/dL) 146 H 147 H Random Glucose 133 H Calcium 8.9 Phosphorus 3.3 Magnesium 1.8 Total Bilirubin 0.5 AST 39 H ALT 57 H Alkaline Phosphatase 92 Total Protein 6.7 Albumin 4.0 Globulin 2.7 Albumin/Globulin Ratio 1.5 04/16/17 04/16/17 04/16/17 07:30 11:13 16:17 WBC RBC Hgb Hct MCV MCH MCHC RDW Plt Count MPV Gran % Lymph % (Auto) [place] % (Auto) Eos % (Auto) Baso % (Auto) Gran # Lymph # [place] # Eos # Baso # Sodium Potassium Chloride Carbon Dioxide Anion Gap BUN Creatinine Est GFR ( Amer) Est GFR (Non-Af Amer) POC Glucose (mg/dL) 133 H 130 H 200 H Random Glucose Calcium Phosphorus Magnesium Total Bilirubin AST ALT Alkaline Phosphatase Total Protein Albumin Globulin Albumin/Globulin Ratio 04/16/17 04/17/17 04/17/17 21:44 06:47 11:32 WBC RBC Hgb Hct MCV MCH MCHC RDW Plt Count MPV Gran % Lymph % (Auto) [place] % (Auto) Eos % (Auto) Baso % (Auto) Gran # Lymph # [place] # Eos # Baso # Sodium Potassium Chloride Carbon Dioxide Anion Gap BUN Creatinine Est GFR ( Amer) Est GFR (Non-Af Amer) POC Glucose (mg/dL) 193 H 130 H 120 H Random Glucose Calcium Phosphorus Magnesium Total Bilirubin AST ALT Alkaline Phosphatase Total Protein Albumin Globulin Albumin/Globulin Ratio DSM 5 Symptoms Update: shortly patient is a 72 year old female, as per family report most likely patient has history of bipolar disorder which was untreated for years, history of possible paranoid personality disorder, no previous history of psychiatric admissions, patient lives in [place] with her family, was brought to the hospital for evaluation of visual hallucinations, recently patient was started Neurontin, as well as found to have urinary tract infection, patient had treatment on the medical side, then was transferred to the psychiatric inpatient unit for further evaluation and stabilization, medication titration, patient was not willing to be f/u with psychiatrist in the community, patient had history of aggressive behavior at home, patient's family didn't feel comfortable to take patient back home, patient signed consent for treatment into the psychiatric inpatient unit. patient was seen today at the treatment team meeting. Patient presented to be in good mood today, pleasant, corporative, patient said that she is not depressed, denied thoughts of killing herself, denied thoughts of killing others , patient denied visual hallucinations for past 48 hours. At the same time patient could have irritability, at times could be disrespectful, for example today patient said "first you need to give me my medications then I will talk to you". Patient denied feeling anxious, denied panic attacks, slept well at night. patient tolerates medications well, no side effects observed or reported, aims 0 , no EPS. MSE: Pt was alert, oriented in self, time and place. 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 Pt looks stated age, acceptable personal hygiene, poor ADLs, there is no psychomotor agitation/retardation, speech was: kind of slurred and underproductive , eye contact: intense, mood described: "I am not depressed, I don't want to harm self or others", affect:was more reactive, mood congruent, thought process: concrete, thought content: , denied SI/ HI, denied v/a/t hallucinations, denied paranoid ideation and pt does not appear to be internally preoccupied or responding to internal stimuli, insight: is improving , judgment: fair , impulses are well controlled. Pt tolerates meds well, no side effects observed or reported, AIMS 0, no EPS Impression: DSM V: Rule out schizoaffective disorder Rule out schizophrenia Rule out paranoid personality disorder Delirium improved Plan: Milieu/structure/supportive therapy Medical consult appreciated, see medical team note for more detailed info PT was called for evaluation SW consultation for discharge plan and social issues, pt was referred to home care [facility] Med management Seroquel XL 400 mg at the nighttime for psychosis and mood stabilization Family involvement, pt's sister Cristiane is very involved into the pt's care. Follow up on labs Will monitor closely Pt was educated about risk/benefits and alternatives of medications, coping strategies (safety plan, suicide prevention), relapse prevention, importance of follow up with psychiatrist and therapist, stay away from drugs/alcohol/smoking Medication Change: No Medical Record Reviewed: Yes Consults ordered or reviewed: medical consult appreciated, see notes for more detailed information PT was called for evaluation Goal/Treatment Plan - Goal/Treatment Plan Need for Continued Stay: Discharge may exacerbated symptoms Estimated Date of D/C: 04/19/17
[2017-04-17] MEDS: QUEtiapine 200 mg XR Tab PO SCH (21:17)
--- NOTE | 2017-04-18 07:21 | PCM.BM ---
Treatment Plan Problems - Problems identified on initial assessmt hopelessness Date Initiated: 04/09/17 Time Initiated: 12:00 Assessment reference: NA Status: Active Priority: 1 feelings of wortlessness Date Initiated: 04/09/17 Time Initiated: 12:00 Assessment reference: NA Status: Active Priority: 2 nutrition more than body requirement Date Initiated: 04/09/17 Time Initiated: 12:00 Assessment reference: NA Status: Active Priority: 3 social isolation Date Initiated: 04/09/17 Time Initiated: 12:00 Assessment reference: NA Status: Active Priority: 4 self care deficit Date Initiated: 04/09/17 Time Initiated: 12:00 Assessment reference: NA Status: Active Priority: 5 Treatment assets and liabiliti Patient Assests: adapts well, cooperative, educated, self-reliant, good support system, negotiates basic needs Patient Liabilities: live alone, dietary restrictions, medical problems, visual impairment - Diagnosis (1) Paranoid personality disorder Status: Acute Interventions: 04/10/17 08:59 Psychoeducation/psychotherapy Psychopharmacology/adjustment of medications as needed/ monitoring possible side effects Evaluate pt on daily basis Compliance with medications and follow up appointments Suicide and homicide risk assessment and prevention, coping strategies, safety plan Relapse prevention Reduction of symptoms Improve functional status Cognitive behavioral therapy Family involvement pt is improving, compliant with meds, family involved no side effects from meds 04/18/17 07:20 (2) Unspecified psychosis not due to a substance or known physiological condition Status: Acute Interventions: 04/10/17 08:59 r/o delirium Pt will be seen by medical team as needed Medications will be confirmed and resumed Additional consultation by specialists as needed Lab work as needed (CBC, CMP, TSH, free T4, UA, Urine test for females as needed) CXR as needed EKG Physical therapy valuation as needed PT eval is pending pt is doing much better 04/18/17 07:21 - Milieu Protocol Maintain good personal hygiene: daily Encourage regular showers, daily Remind patient to perform daily oral care, daily Assist patient to perform ADL's Conduct patient checks and document Observation sheet: Q15 minutes Maintain personal safety: every shift Educate patient to report safety concerns to staff, every shift Monitor environment for contraband/sharps Medication safety: Monitor for expected outcome, potential side effects: every shift, Assess barriers to learning: every shift, Assess readiness for medication education: every shift Milieu Narrative: milieu, structure, supportive therapy Seroquel XL300 mg at the nighttime for psychosis and mood stabilization All medications from the medical side resumed, We'll consider to reconsult neurology team We'll monitor patient closely Family involvement dry dip worker evaluation We'll monitor patient closely. we'll hold discharged today, patient's family refused to accept patient back, said that patient does not have bad in her apartment. Family Contact Family contact: Patient agrees to contact Family contact name: Cecille Haque(sister) Family contacted how many times per week?: 2 Discharge/Continuing Care - Education Needs Education Needs: Patient Medication, Patient Diagnosis/Disease Process, Patient Coping Skills, Patient Activities of Daily Living, Patient Health Practices/ Safety, Patient Personal Hygiene/Grooming - Discharge Discharge Criteria: Tolerates medication w/o severe side effects, Free of Suicidal thoughts, Normal sleep pattern, Ability to care for self - Treatment Team Participation Patient/Family/SO Statement: milieu, structure, supportive therapy Seroquel XL300 mg at the nighttime for psychosis and mood stabilization All medications from the medical side resumed, We'll consider to reconsult neurology team We'll monitor patient closely Family involvement dry dip worker evaluation We'll monitor patient closely. we'll hold discharged today, patient's family refused to accept patient back, said that patient does not have bad in her apartment. Treatment Plan Review - Problem hopelessness Date Initiated: 04/17/17 Time Initiated: 12:00 Progress toward outcomes: improved feelings of wortlessness Date Initiated: 04/17/17 Time Initiated: 12:00 Progress toward outcomes: improved nutrition more than body requirement Date Initiated: 04/17/17 Time Initiated: 12:00 Progress toward outcomes: improved social isolation Date Initiated: 04/17/17 Time Initiated: 12:00 Progress toward outcomes: improved self care deficit Date Initiated: 04/17/17 Time Initiated: 12:00 Progress toward outcomes: improved
[2017-04-18] MEDS: Levothyroxine 50 MCG TAB PO SCH (07:29)
[2017-04-18] MEDS: POLYETHYLENE GLYCOL 3350 17 GM/Dose PACKET PO SCH ×2 (08:00→17:37)
[2017-04-18] MEDS: Nystatin-Triamcinolone Ointment(30 gm) TOP SCH ×2 (08:00→16:45)
[2017-04-18 08:52] LABS: BASO # 0.04 K/mm3 (0.0-2.0); BASO % 0.7 % (0.0-3.0); EOS # 0.2 (0.0-0.7); EOS % 3.6 % (1.5-5.0); GRAN # 4.05 (1.4-6.5); GRAN % 73.5 % (50.0-68.0); HEMATOCRIT 38.7 % (36.0-48.0); LYMPH # 0.9 (1.2-3.4); MEAN CELL VOLUME 94.6 fl (80.0-105.0); MEAN CORPUSCULAR HEMOGLOBIN 31.1 pg (25.0-35.0); MEAN CORPUSCULAR HGB CONC 32.8 g/dl (31.0-37.0); MEAN PLATELET VOLUME 10.3 fl (7.0-11.0); MONO # 0.3 (0.1-0.6); MONO % 6.2 % (1.0-6.0); RED CELL DISTRIBUTION WIDTH 14.5 % (11.5-14.5); WHITE BLOOD COUNT 5.5 10^3/ul (4.5-11.0)
[2017-04-18 08:56] LABS: ALB/GLOB RATIO 1.4 (1.1-1.8); BILIRUBIN,TOTAL 0.7 mg/dL (0.2-1.3); CALCIUM 8.8 mg/dL (8.4-10.5); POTASSIUM 4.9 mmol/L (3.6-5.0); TOTAL PROTEIN 6.8 g/dL (5.8-8.3)
--- NOTE | 2017-04-18 12:07 | PCM.PYCHPN ---
Psychiatric Progress Note - Psychiatric Progress Note Patient seen today, length of contact: 30 minutes Patient Chief Complaint: "I am better now" Medical Problems: As per medical history report patient was started on Neurontin few weeks prior off hallucinations.Patient had urinary tract infection, was on antibiotics on the medical side, patient also has obesity, diabetes, hyperlipidemia, hypertension, hypothyroidism, medical consultation appreciated. see note for more detailed information. pt had mechanical fall, PT was called for evaluation Diagnostic Results: Lab Results 04/10/17 07:50: RPR Nonreactive Vital Signs Temp Pulse Pulse Resp BP Pulse Ox 04/11/17 06:00 97.7 F 65 18 138/78 95 04/10/17 16:11 60 101/44 L 04/10/17 07:20 97.6 F 66 20 130/110 H 04/09/17 18:05 60 20 04/09/17 17:53 60 122/54 L Temp Pulse Resp BP Pulse Ox 97.3 F L 66 20 113/62 95 04/12/17 06:55 04/12/17 09:49 04/12/17 06:55 04/12/17 09:49 04/11/17 06:00 04/15/17 13:45 04/15/17 13:45 Lab Results 04/15/17 16:01: POC Glucose (mg/dL) 146 H 04/15/17 13:45: Sodium 137, Potassium 5.1 H, Chloride 101, Carbon Dioxide 26, Anion Gap 15, BUN 30 H, Creatinine 1.4, Est GFR ( Amer) 45, Est GFR (Non- Af Amer) 37, Random Glucose 133 H, Calcium 8.9, Phosphorus 3.3, Magnesium 1.8, Total Bilirubin 0.5, AST 39 H, ALT 57 H, Alkaline Phosphatase 92, Total Protein 6.7, Albumin 4.0, Globulin 2.7, Albumin/Globulin Ratio 1.5 04/15/17 13:45: WBC 5.9, RBC 3.97, Hgb 12.3, Hct 38.2, MCV 96.2, MCH 31.0, MCHC 32.2, RDW 14.5, Plt Count 222, MPV 10.2, Gran % 72.5 H, Lymph % (Auto) 17.8 L, [place] % (Auto) 5.4, Eos % (Auto) 3.6, Baso % (Auto) 0.7, Gran # 4.29, Lymph # 1.1 L, [place] # 0.3, Eos # 0.2, Baso # 0.04 04/15/17 11:43: POC Glucose (mg/dL) 158 H 04/15/17 07:48: POC Glucose (mg/dL) 114 H 04/13/17 23:04: POC Glucose (mg/dL) 144 H 04/12/17 22:13: POC Glucose (mg/dL) 207 H 04/12/17 16:49: POC Glucose (mg/dL) 141 H 04/12/17 12:05: POC Glucose (mg/dL) 171 H 04/12/17 07:29: POC Glucose (mg/dL) 115 H 04/11/17 16:27: POC Glucose (mg/dL) 91 04/10/17 07:50: RPR Nonreactive Temp Pulse Resp BP Pulse Ox 97.8 F 62 18 86/43 L 95 04/14/17 07:05 04/15/17 16:08 04/14/17 07:05 04/15/17 16:08 04/11/17 06:00 CT scan of the head was done 04/15/17 status post fall, no acute changes X-ray of the hips was done 04/15/17 no acute changes, no fracture, no dislocation Abnormal Lab Results 04/15/17 04/15/17 04/16/17 16:01 22:01 07:30 POC Glucose (mg/dL) 146 H 147 H 133 H 04/16/17 11:13 POC Glucose (mg/dL) 130 H Laboratory Results - last 72 hr 04/15/17 04/15/17 04/15/17 07:48 11:43 13:45 WBC 5.9 RBC 3.97 Hgb 12.3 Hct 38.2 MCV 96.2 MCH 31.0 MCHC 32.2 RDW 14.5 Plt Count 222 MPV 10.2 Gran % 72.5 H Lymph % (Auto) 17.8 L [place] % (Auto) 5.4 Eos % (Auto) 3.6 Baso % (Auto) 0.7 Gran # 4.29 Lymph # 1.1 L [place] # 0.3 Eos # 0.2 Baso # 0.04 Sodium Potassium Chloride Carbon Dioxide Anion Gap BUN Creatinine Est GFR ( Amer) Est GFR (Non-Af Amer) POC Glucose (mg/dL) 114 H 158 H Random Glucose Calcium Phosphorus Magnesium Total Bilirubin AST ALT Alkaline Phosphatase Total Protein Albumin Globulin Albumin/Globulin Ratio 04/15/17 04/15/17 04/15/17 13:45 16:01 22:01 WBC RBC Hgb Hct MCV MCH MCHC RDW Plt Count MPV Gran % Lymph % (Auto) [place] % (Auto) Eos % (Auto) Baso % (Auto) Gran # Lymph # [place] # Eos # Baso # Sodium 137 Potassium 5.1 H Chloride 101 Carbon Dioxide 26 Anion Gap 15 BUN 30 H Creatinine 1.4 Est GFR ( Amer) 45 Est GFR (Non-Af Amer) 37 POC Glucose (mg/dL) 146 H 147 H Random Glucose 133 H Calcium 8.9 Phosphorus 3.3 Magnesium 1.8 Total Bilirubin 0.5 AST 39 H ALT 57 H Alkaline Phosphatase 92 Total Protein 6.7 Albumin 4.0 Globulin 2.7 Albumin/Globulin Ratio 1.5 04/16/17 04/16/17 04/16/17 07:30 11:13 16:17 WBC RBC Hgb Hct MCV MCH MCHC RDW Plt Count MPV Gran % Lymph % (Auto) [place] % (Auto) Eos % (Auto) Baso % (Auto) Gran # Lymph # [place] # Eos # Baso # Sodium Potassium Chloride Carbon Dioxide Anion Gap BUN Creatinine Est GFR ( Amer) Est GFR (Non-Af Amer) POC Glucose (mg/dL) 133 H 130 H 200 H Random Glucose Calcium Phosphorus Magnesium Total Bilirubin AST ALT Alkaline Phosphatase Total Protein Albumin Globulin Albumin/Globulin Ratio 04/16/17 04/17/17 04/17/17 21:44 06:47 11:32 WBC RBC Hgb Hct MCV MCH MCHC RDW Plt Count MPV Gran % Lymph % (Auto) [place] % (Auto) Eos % (Auto) Baso % (Auto) Gran # Lymph # [place] # Eos # Baso # Sodium Potassium Chloride Carbon Dioxide Anion Gap BUN Creatinine Est GFR ( Amer) Est GFR (Non-Af Amer) POC Glucose (mg/dL) 193 H 130 H 120 H Random Glucose Calcium Phosphorus Magnesium Total Bilirubin AST ALT Alkaline Phosphatase Total Protein Albumin Globulin Albumin/Globulin Ratio Temp Pulse Resp BP Pulse Ox 97.1 F L 78 16 115/66 100 04/18/17 08:03 04/18/17 08:03 04/18/17 08:03 04/18/17 08:03 04/17/17 22:15 Laboratory Results - last 24 hr 04/17/17 04/17/17 04/18/17 16:35 21:36 07:04 WBC RBC Hgb Hct MCV MCH MCHC RDW Plt Count MPV Gran % Lymph % (Auto) [place] % (Auto) Eos % (Auto) Baso % (Auto) Gran # Lymph # [place] # Eos # Baso # Sodium Potassium Chloride Carbon Dioxide Anion Gap BUN Creatinine Est GFR ( Amer) Est GFR (Non-Af Amer) POC Glucose (mg/dL) 161 H 168 H 143 H Random Glucose Calcium Total Bilirubin AST ALT Alkaline Phosphatase Total Protein Albumin Globulin Albumin/Globulin Ratio 04/18/17 04/18/17 04/18/17 08:30 08:30 11:04 WBC 5.5 RBC 4.09 Hgb 12.7 Hct 38.7 MCV 94.6 MCH 31.1 MCHC 32.8 RDW 14.5 Plt Count 216 MPV 10.3 Gran % 73.5 H Lymph % (Auto) 16.0 L [place] % (Auto) 6.2 H Eos % (Auto) 3.6 Baso % (Auto) 0.7 Gran # 4.05 Lymph # 0.9 L [place] # 0.3 Eos # 0.2 Baso # 0.04 Sodium 139 Potassium 4.9 Chloride 103 Carbon Dioxide 25 Anion Gap 16 BUN 34 H Creatinine 1.4 Est GFR ( Amer) 45 Est GFR (Non-Af Amer) 37 POC Glucose (mg/dL) 155 H Random Glucose 130 H Calcium 8.8 Total Bilirubin 0.7 AST 40 H ALT 53 Alkaline Phosphatase 106 Total Protein 6.8 Albumin 4.0 Globulin 2.8 Albumin/Globulin Ratio 1.4 DSM 5 Symptoms Update: shortly patient is a 72 year old female, as per family report most likely patient has history of bipolar disorder which was untreated for years, history of possible paranoid personality disorder, no previous history of psychiatric admissions, patient lives in [place] with her family, was brought to the hospital for evaluation of visual hallucinations, recently patient was started Neurontin, as well as found to have urinary tract infection, patient had treatment on the medical side, then was transferred to the psychiatric inpatient unit for further evaluation and stabilization, medication titration, patient was not willing to be f/u with psychiatrist in the community, patient had history of aggressive behavior at home, patient's family didn't feel comfortable to take patient back home, patient signed consent for treatment into the psychiatric inpatient unit. as per RN report pt was hallucinating during the night time, pt was seeing spiders, bugs on the floor, pt also had impression that somebody looking at her from the window. (of note pt was free of hallucinations two days straight before last night), based on med list, Tramadol was started yesterday at hs, seems pt has high sensitivity to the narcotic meds, d/w , will d/c ultram, pt will be started on Ibuprofen which pt tolerated well yesterday at am and pain was well managed at am. pt was seen at am in her room, pt was mildly irritable, said that she has pain in her back, pt s/p mechanical fall two days ago, PT evaluation is still pending. At times could be disrespectful, for example today patient said "first you need to give me my medications then I will talk to you". pt denied being depressed, denied thoughts of harming self or others, denied intent or plan "why would I want to harm myself?". Patient denied feeling anxious, denied panic attacks. patient tolerates medications well, no side effects observed or reported, aims 0 , no EPS. MSE: Pt was alert, oriented in self, time and place. was irritable today. Pt looks stated age, acceptable personal hygiene, poor ADLs, there is no psychomotor agitation/retardation, speech was: kind of slurred and underproductive , eye contact: intense, mood described: "I am not depressed, I don't want to harm self or others", affect:was more irritable today, thought process: concrete, thought content: , denied SI/ HI, some visual hallucinations over night, denied paranoid ideation and pt does not appear to be internally preoccupied or responding to internal stimuli, insight: is improving, judgment: fair , impulses are well controlled. Impression: DSM V: Rule out schizoaffective disorder Rule out schizophrenia Rule out paranoid personality disorder Delirium improved hallucinations over night could be related to ultram Plan: Milieu/structure/supportive therapy Medical consult appreciated, see medical team note for more detailed info SW consultation for discharge plan and social issues, pt was referred to home care [facility] Med management Seroquel XL 400 mg at the nighttime for psychosis and mood stabilization Family involvement, pt's sister Cristiane is very involved into the pt's care. this life insurance underwriter will d/c ultram, d/w ibuprofen prn for pain cbc/cmp/ua PT evaluation is pending Follow up on labs Will monitor closely Pt was educated about risk/benefits and alternatives of medications, coping strategies (safety plan, suicide prevention), relapse prevention, importance of follow up with psychiatrist and therapist, stay away from drugs/alcohol/smoking Medication Change: No Medical Record Reviewed: Yes Consults ordered or reviewed: medical consult appreciated, see notes for more detailed information PT was called for evaluation Goal/Treatment Plan - Goal/Treatment Plan Need for Continued Stay: Discharge may exacerbated symptoms, Severe functional impairment Estimated Date of D/C: 04/22/17 (will monitor closely)
[2017-04-18 15:43] LABS: PH,URINE 5.5 (4.7-8.0); URINE BILIRUBIN NEGATIVE (NEGATIVE); URINE BLOOD NEGATIVE (NEGATIVE); URINE GLUCOSE (UA) NEGATIVE (NEGATIVE); URINE KETONE NEGATIVE (NEGATIVE); URINE LEUKOCYTE ESTERASE NEGATIVE Leu/uL (NEGATIVE); URINE PROTEIN NEGATIVE mg/dL (<30 mg/dL); URINE UROBILINOGEN 0.2 E.U./dL (<1 E.U./dL)
[2017-04-18 15:44] LABS: URINE APPEARANCE CLEAR (CLEAR); URINE COLOR YELLOW (YELLOW)
[2017-04-18] MEDS: QUEtiapine 200 mg XR Tab PO SCH (21:46)
[2017-04-19] MEDS: Levothyroxine 50 MCG TAB PO SCH (05:44)
[2017-04-19 06:44] VITALS: RESP 18; TEMP 97.8; O2SAT 94
[2017-04-19] MEDS: Nystatin-Triamcinolone Ointment(30 gm) TOP SCH ×2 (10:33→17:10)
[2017-04-19] MEDS: POLYETHYLENE GLYCOL 3350 17 GM/Dose PACKET PO SCH ×2 (10:34→17:09)
--- NOTE | 2017-04-19 12:02 | PCM.PYCHPN ---
Psychiatric Progress Note - Psychiatric Progress Note Patient seen today, length of contact: 30 minutes Patient Chief Complaint: "I am better now" Medical Problems: As per medical history report patient was started on Neurontin few weeks prior off hallucinations.Patient had urinary tract infection, was on antibiotics on the medical side, patient also has obesity, diabetes, hyperlipidemia, hypertension, hypothyroidism, medical consultation appreciated. see note for more detailed information. pt had mechanical fall, PT was called for evaluation, appreciated, recommended [facility] Diagnostic Results: Lab Results 04/10/17 07:50: RPR Nonreactive Vital Signs Temp Pulse Pulse Resp BP Pulse Ox 04/11/17 06:00 97.7 F 65 18 138/78 95 04/10/17 16:11 60 101/44 L 04/10/17 07:20 97.6 F 66 20 130/110 H 04/09/17 18:05 60 20 04/09/17 17:53 60 122/54 L Temp Pulse Resp BP Pulse Ox 97.3 F L 66 20 113/62 95 04/12/17 06:55 04/12/17 09:49 04/12/17 06:55 04/12/17 09:49 04/11/17 06:00 04/15/17 13:45 04/15/17 13:45 Lab Results 04/15/17 16:01: POC Glucose (mg/dL) 146 H 04/15/17 13:45: Sodium 137, Potassium 5.1 H, Chloride 101, Carbon Dioxide 26, Anion Gap 15, BUN 30 H, Creatinine 1.4, Est GFR ( Amer) 45, Est GFR (Non- Af Amer) 37, Random Glucose 133 H, Calcium 8.9, Phosphorus 3.3, Magnesium 1.8, Total Bilirubin 0.5, AST 39 H, ALT 57 H, Alkaline Phosphatase 92, Total Protein 6.7, Albumin 4.0, Globulin 2.7, Albumin/Globulin Ratio 1.5 04/15/17 13:45: WBC 5.9, RBC 3.97, Hgb 12.3, Hct 38.2, MCV 96.2, MCH 31.0, MCHC 32.2, RDW 14.5, Plt Count 222, MPV 10.2, Gran % 72.5 H, Lymph % (Auto) 17.8 L, [place] % (Auto) 5.4, Eos % (Auto) 3.6, Baso % (Auto) 0.7, Gran # 4.29, Lymph # 1.1 L, [place] # 0.3, Eos # 0.2, Baso # 0.04 04/15/17 11:43: POC Glucose (mg/dL) 158 H 04/15/17 07:48: POC Glucose (mg/dL) 114 H 04/13/17 23:04: POC Glucose (mg/dL) 144 H 04/12/17 22:13: POC Glucose (mg/dL) 207 H 04/12/17 16:49: POC Glucose (mg/dL) 141 H 04/12/17 12:05: POC Glucose (mg/dL) 171 H 04/12/17 07:29: POC Glucose (mg/dL) 115 H 04/11/17 16:27: POC Glucose (mg/dL) 91 04/10/17 07:50: RPR Nonreactive Temp Pulse Resp BP Pulse Ox 97.8 F 62 18 86/43 L 95 04/14/17 07:05 04/15/17 16:08 04/14/17 07:05 04/15/17 16:08 04/11/17 06:00 CT scan of the head was done 04/15/17 status post fall, no acute changes X-ray of the hips was done 04/15/17 no acute changes, no fracture, no dislocation Abnormal Lab Results 04/15/17 04/15/17 04/16/17 16:01 22:01 07:30 POC Glucose (mg/dL) 146 H 147 H 133 H 04/16/17 11:13 POC Glucose (mg/dL) 130 H Laboratory Results - last 72 hr 04/15/17 04/15/17 04/15/17 07:48 11:43 13:45 WBC 5.9 RBC 3.97 Hgb 12.3 Hct 38.2 MCV 96.2 MCH 31.0 MCHC 32.2 RDW 14.5 Plt Count 222 MPV 10.2 Gran % 72.5 H Lymph % (Auto) 17.8 L [place] % (Auto) 5.4 Eos % (Auto) 3.6 Baso % (Auto) 0.7 Gran # 4.29 Lymph # 1.1 L [place] # 0.3 Eos # 0.2 Baso # 0.04 Sodium Potassium Chloride Carbon Dioxide Anion Gap BUN Creatinine Est GFR ( Amer) Est GFR (Non-Af Amer) POC Glucose (mg/dL) 114 H 158 H Random Glucose Calcium Phosphorus Magnesium Total Bilirubin AST ALT Alkaline Phosphatase Total Protein Albumin Globulin Albumin/Globulin Ratio 04/15/17 04/15/17 04/15/17 13:45 16:01 22:01 WBC RBC Hgb Hct MCV MCH MCHC RDW Plt Count MPV Gran % Lymph % (Auto) [place] % (Auto) Eos % (Auto) Baso % (Auto) Gran # Lymph # [place] # Eos # Baso # Sodium 137 Potassium 5.1 H Chloride 101 Carbon Dioxide 26 Anion Gap 15 BUN 30 H Creatinine 1.4 Est GFR ( Amer) 45 Est GFR (Non-Af Amer) 37 POC Glucose (mg/dL) 146 H 147 H Random Glucose 133 H Calcium 8.9 Phosphorus 3.3 Magnesium 1.8 Total Bilirubin 0.5 AST 39 H ALT 57 H Alkaline Phosphatase 92 Total Protein 6.7 Albumin 4.0 Globulin 2.7 Albumin/Globulin Ratio 1.5 04/16/17 04/16/17 04/16/17 07:30 11:13 16:17 WBC RBC Hgb Hct MCV MCH MCHC RDW Plt Count MPV Gran % Lymph % (Auto) [place] % (Auto) Eos % (Auto) Baso % (Auto) Gran # Lymph # [place] # Eos # Baso # Sodium Potassium Chloride Carbon Dioxide Anion Gap BUN Creatinine Est GFR ( Amer) Est GFR (Non-Af Amer) POC Glucose (mg/dL) 133 H 130 H 200 H Random Glucose Calcium Phosphorus Magnesium Total Bilirubin AST ALT Alkaline Phosphatase Total Protein Albumin Globulin Albumin/Globulin Ratio 04/16/17 04/17/17 04/17/17 21:44 06:47 11:32 WBC RBC Hgb Hct MCV MCH MCHC RDW Plt Count MPV Gran % Lymph % (Auto) [place] % (Auto) Eos % (Auto) Baso % (Auto) Gran # Lymph # [place] # Eos # Baso # Sodium Potassium Chloride Carbon Dioxide Anion Gap BUN Creatinine Est GFR ( Amer) Est GFR (Non-Af Amer) POC Glucose (mg/dL) 193 H 130 H 120 H Random Glucose Calcium Phosphorus Magnesium Total Bilirubin AST ALT Alkaline Phosphatase Total Protein Albumin Globulin Albumin/Globulin Ratio Temp Pulse Resp BP Pulse Ox 97.1 F L 78 16 115/66 100 04/18/17 08:03 04/18/17 08:03 04/18/17 08:03 04/18/17 08:03 04/17/17 22:15 Laboratory Results - last 24 hr 04/17/17 04/17/17 04/18/17 16:35 21:36 07:04 WBC RBC Hgb Hct MCV MCH MCHC RDW Plt Count MPV Gran % Lymph % (Auto) [place] % (Auto) Eos % (Auto) Baso % (Auto) Gran # Lymph # [place] # Eos # Baso # Sodium Potassium Chloride Carbon Dioxide Anion Gap BUN Creatinine Est GFR ( Amer) Est GFR (Non-Af Amer) POC Glucose (mg/dL) 161 H 168 H 143 H Random Glucose Calcium Total Bilirubin AST ALT Alkaline Phosphatase Total Protein Albumin Globulin Albumin/Globulin Ratio 04/18/17 04/18/17 04/18/17 08:30 08:30 11:04 WBC 5.5 RBC 4.09 Hgb 12.7 Hct 38.7 MCV 94.6 MCH 31.1 MCHC 32.8 RDW 14.5 Plt Count 216 MPV 10.3 Gran % 73.5 H Lymph % (Auto) 16.0 L [place] % (Auto) 6.2 H Eos % (Auto) 3.6 Baso % (Auto) 0.7 Gran # 4.05 Lymph # 0.9 L [place] # 0.3 Eos # 0.2 Baso # 0.04 Sodium 139 Potassium 4.9 Chloride 103 Carbon Dioxide 25 Anion Gap 16 BUN 34 H Creatinine 1.4 Est GFR ( Amer) 45 Est GFR (Non-Af Amer) 37 POC Glucose (mg/dL) 155 H Random Glucose 130 H Calcium 8.8 Total Bilirubin 0.7 AST 40 H ALT 53 Alkaline Phosphatase 106 Total Protein 6.8 Albumin 4.0 Globulin 2.8 Albumin/Globulin Ratio 1.4 Temp Pulse Resp BP Pulse Ox 97.8 F 68 18 101/52 L 94 L 04/19/17 06:43 04/19/17 10:35 04/19/17 06:43 04/19/17 10:35 04/19/17 06:43 DSM 5 Symptoms Update: shortly patient is a 72 year old female, as per family report most likely patient has history of bipolar disorder which was untreated for years, history of possible paranoid personality disorder, no previous history of psychiatric admissions, patient lives in [place] with her family, was brought to the hospital for evaluation of visual hallucinations, recently patient was started Neurontin, as well as found to have urinary tract infection, patient had treatment on the medical side, then was transferred to the psychiatric inpatient unit for further evaluation and stabilization, medication titration, patient was not willing to be f/u with psychiatrist in the community, patient had history of aggressive behavior at home, patient's family didn't feel comfortable to take patient back home, patient signed consent for treatment into the psychiatric inpatient unit. pt was seen in her room, pt presented better, pt said that she did not have any hallucinations since yesterday's night. pt was evaluated by PT, was recommended [facility], pt is in agreement with the plan, prefer in [place], caseworker protective services and SW discussing options from psychiatric stand point pt is doing much better, denied being depressed, denied thoughts of harming self or others, socially appropriate, at times irritable (could be contributed to the pain). pt said her pain is well managed with Tylenol and Ibuprofen, pt seems to be sensitive to Tramadol (pt had visual hallucinations on it). patient tolerates medications well, no side effects observed or reported, aims 0 , no EPS. MSE: Pt was alert, oriented in self, time and place. Pt looks stated age, acceptable personal hygiene, poor ADLs, there is no psychomotor agitation/retardation, speech was: kind of slurred and underproductive , eye contact: intense, mood described: "I am not depressed, I don't want to harm self or others", affect was less irritable , thought process: concrete, thought content: , denied SI/ HI , denied any hallucinations since yesterday night, insight: is improving, judgment: fair , impulses are well controlled. Impression: DSM V: Rule out schizoaffective disorder Rule out schizophrenia Rule out paranoid personality disorder Delirium improved hallucinations over night could be related to ultram Plan: Milieu/structure/supportive therapy Medical consult appreciated, see medical team note for more detailed info SW consultation for discharge plan and social issues, pt [facility] Med management Seroquel XL 400 mg at the nighttime for psychosis and mood stabilization Family involvement, pt's sister Cristiane is very involved into the pt's care. this magazine writer will d/c alicia, d/w ibuprofen prn for pain cbc/cmp/ua PT evaluation, recommended [facility] Follow up on labs Will monitor closely Pt was educated about risk/benefits and alternatives of medications, coping strategies (safety plan, suicide prevention), relapse prevention, importance of follow up with psychiatrist and therapist, stay away from drugs/alcohol/smoking Medication Change: No Medical Record Reviewed: Yes Consults ordered or reviewed: medical consult appreciated, see notes for more detailed information PT was called for evaluation, appreciated Goal/Treatment Plan - Goal/Treatment Plan Need for Continued Stay: Discharge may exacerbated symptoms, Severe functional impairment Estimated Date of D/C: 04/22/17 (will monitor closely)
--- NOTE | 2017-04-19 16:41 | PCM.PYCHDC ---
Mental Status Examination - Mental Status Examination Orientation: Person, Place, Situation, Time Memory: Intact Mood: Neutral Affect: Constricted (but reactive, mood congruent) Speech: Appropriate (at times ) Attention: Poor (but with much improvement) Concentration: Poor (with much imrpovement) Association: WNL Fund of Knowledge: WNL Formal Thought Process: No Impairment, Hallucinations (pt did not have hallucinations for the past 48 hrs) Description of patient's judgement and insight: Pt has improved insight into mental and medical illness, pt was compliant with medications and unit rules and regulations, pt was going to groups, was calm, cooperative, socially appropriate, no behavioral incidents, no agitation, no aggression. Psychotic Thoughts and Behaviors: Pt denied v/a/t hallucinations, denied paranoid ideations, pt does not appear to be psychotic, and thought process is goal directed. Suicidal Ideation: No Current Homicidal Ideation?: No Plan: pt adamantly denied thoughts of harming self or others denied intent or plan. Discharge Summary - Discharge Note Reason for Hospitalization: patient was transferred from the medical floor for evaluation and stabilization of visual hallucinations, paranoid ideation, inability to function. Psychiatric History (includes Medical, Family, Personal Hx): see HPI Laboratory Data: Abnormal Lab Results 04/18/17 04/18/17 04/19/17 15:59 21:41 05:58 POC Glucose (mg/dL) 191 H 221 H 162 H 04/19/17 11:08 POC Glucose (mg/dL) 211 H 04/18/17 08:30 04/18/17 08:30 Lab Results 04/19/17 11:08: POC Glucose (mg/dL) 211 H 04/19/17 05:58: POC Glucose (mg/dL) 162 H 04/18/17 21:41: POC Glucose (mg/dL) 221 H 04/18/17 15:59: POC Glucose (mg/dL) 191 H 04/18/17 15:39: Urine Color Yellow, Urine Appearance Clear, Urine pH 5.5, Ur Specific Roe 1.020, Urine Protein Negative, Urine Glucose (UA) Negative, Urine Ketones Negative, Urine Blood Negative, Urine Nitrate Negative, Urine Bilirubin Negative, Urine Urobilinogen 0.2, Ur Leukocyte Esterase Negative 04/18/17 11:04: POC Glucose (mg/dL) 155 H 04/18/17 08:30: Sodium 139, Potassium 4.9, Chloride 103, Carbon Dioxide 25, Anion Gap 16, BUN 34 H, Creatinine 1.4, Est GFR ( Amer) 45, Est GFR (Non- Af Amer) 37, Random Glucose 130 H, Calcium 8.8, Total Bilirubin 0.7, AST 40 H, ALT 53, Alkaline Phosphatase 106, Total Protein 6.8, Albumin 4.0, Globulin 2.8, Albumin/Globulin Ratio 1.4 04/18/17 08:30: WBC 5.5, RBC 4.09, Hgb 12.7, Hct 38.7, MCV 94.6, MCH 31.1, MCHC 32.8, RDW 14.5, Plt Count 216, MPV 10.3, Gran % 73.5 H, Lymph % (Auto) 16.0 L, [place] % (Auto) 6.2 H, Eos % (Auto) 3.6, Baso % (Auto) 0.7, Gran # 4.05, Lymph # 0.9 L, [place] # 0.3, Eos # 0.2, Baso # 0.04 04/18/17 07:04: POC Glucose (mg/dL) 143 H 04/17/17 21:36: POC Glucose (mg/dL) 168 H 04/17/17 16:35: POC Glucose (mg/dL) 161 H 04/17/17 11:32: POC Glucose (mg/dL) 120 H 04/17/17 06:47: POC Glucose (mg/dL) 130 H 04/16/17 21:44: POC Glucose (mg/dL) 193 H 04/16/17 16:17: POC Glucose (mg/dL) 200 H 04/16/17 11:13: POC Glucose (mg/dL) 130 H 04/16/17 07:30: POC Glucose (mg/dL) 133 H 04/15/17 22:01: POC Glucose (mg/dL) 147 H 04/15/17 16:01: POC Glucose (mg/dL) 146 H 04/15/17 13:45: Sodium 137, Potassium 5.1 H, Chloride 101, Carbon Dioxide 26, Anion Gap 15, BUN 30 H, Creatinine 1.4, Est GFR ( Amer) 45, Est GFR (Non- Af Amer) 37, Random Glucose 133 H, Calcium 8.9, Phosphorus 3.3, Magnesium 1.8, Total Bilirubin 0.5, AST 39 H, ALT 57 H, Alkaline Phosphatase 92, Total Protein 6.7, Albumin 4.0, Globulin 2.7, Albumin/Globulin Ratio 1.5 04/15/17 13:45: WBC 5.9, RBC 3.97, Hgb 12.3, Hct 38.2, MCV 96.2, MCH 31.0, MCHC 32.2, RDW 14.5, Plt Count 222, MPV 10.2, Gran % 72.5 H, Lymph % (Auto) 17.8 L, [place] % (Auto) 5.4, Eos % (Auto) 3.6, Baso % (Auto) 0.7, Gran # 4.29, Lymph # 1.1 L, [place] # 0.3, Eos # 0.2, Baso # 0.04 04/15/17 11:43: POC Glucose (mg/dL) 158 H 04/15/17 07:48: POC Glucose (mg/dL) 114 H 04/13/17 23:04: POC Glucose (mg/dL) 144 H 04/12/17 22:13: POC Glucose (mg/dL) 207 H 04/12/17 16:49: POC Glucose (mg/dL) 141 H 04/12/17 12:05: POC Glucose (mg/dL) 171 H 04/12/17 07:29: POC Glucose (mg/dL) 115 H 04/11/17 16:27: POC Glucose (mg/dL) 91 04/10/17 07:50: RPR Nonreactive Temp Pulse Resp BP Pulse Ox 97.8 F 68 18 101/52 L 94 L 04/19/17 06:43 04/19/17 10:35 04/19/17 06:43 04/19/17 10:35 04/19/17 06:43 Vital Signs Temp Pulse Pulse Resp BP Pulse Ox 04/19/17 10:35 68 101/52 L 04/19/17 10:30 68 101/62 04/19/17 06:43 97.8 F 68 18 101/52 L 94 L 04/18/17 16:43 68 91/83 L 04/18/17 16:00 68 91/83 L 04/18/17 12:57 78 115/66 04/18/17 08:03 97.1 F L 78 16 115/66 04/18/17 08:00 78 115/66 04/17/17 22:15 97.9 F 100 H 62 H 135/68 100 04/17/17 17:50 78 115/59 L 04/17/17 09:02 62 135/68 04/17/17 09:00 62 135/68 04/17/17 07:02 97.9 F 62 18 135/68 100 04/16/17 16:30 62 94/52 L 04/16/17 09:17 70 115/69 04/16/17 07:13 98.3 F 52 L 20 136/116 H 04/15/17 18:30 97.0 F L 04/15/17 17:00 62 86/43 L 04/15/17 16:08 62 86/43 L 04/15/17 08:55 64 103/80 04/15/17 08:54 64 103/80 04/14/17 22:00 81 120/65 04/14/17 07:05 97.8 F 65 18 132/64 04/13/17 16:00 62 125/67 04/13/17 07:23 98.1 F 56 L 20 106/43 L 04/13/17 03:47 59 L 107/45 L 04/12/17 16:37 72 116/62 04/12/17 09:49 66 113/62 04/12/17 09:41 66 113/62 04/12/17 06:55 97.3 F L 65 20 101/41 L 04/11/17 06:00 97.7 F 65 18 138/78 95 04/10/17 16:11 60 101/44 L 04/10/17 07:20 97.6 F 66 20 130/110 H 04/09/17 18:05 60 20 04/09/17 17:53 60 122/54 L Consultations:: List each consultation separately and include: 1. Reason for request. 2. Findings. 3. Follow-up Consultations: medical consult appreciated, see notes for more detailed information PT was called for evaluation, appreciated, recommended [facility] Summary of Hospital Course include:: 1. Description of specific treatment plan utilized for patients during their course of treatmen. 2. Summarize the time- course for resolution of acute symptoms and/or regressed behaviors. 3. Describe issues identified and worked on during hospitalization. 4. Describe medication utilized. 5. Describe medical problems identified and treated. 6. Reassessment of suicide risk Summary of Hospital Course: shortly patient is a 72 year old female, as per family report most likely patient has history of bipolar disorder which was untreated for years, history of possible paranoid personality disorder, no previous history of psychiatric admissions, patient lives in [place] with her family, was brought to the hospital for evaluation of visual hallucinations, recently patient was started Neurontin, as well as found to have urinary tract infection, patient had treatment on the medical side, then was transferred to the psychiatric inpatient unit for further evaluation and stabilization, medication titration, patient was not willing to be f/u with psychiatrist in the community, patient had history of aggressive behavior at home, patient's family didn't feel comfortable to take patient back home, patient signed consent for treatment into the psychiatric inpatient unit. initially patient was seen at treatment team meeting, presented to have acceptable personal hygiene, has long uncombed may hair, intermittent eye contact, fair ADLs. Patient obviously is paranoid, suspicious, guarded, refused to sign electronic treatment plan, patient has concrete thought process said "I refuse sign myself for electronic treatment". This senior medical writer tried her best to educate patient about the electronic treatment plan staff need to be compliant with, patient was not able to comprehend. Patient still has visual hallucinations, bugs, spiders, patient reported no improvement with the symptoms. Patient was evaluated by neurology team on the medical side, did not find neurological deficits, no memory problems. pt denied being depressed, denied thoughts of harming herself or others. Patient denied feeling anxious, denied panic attacks, denied abuse. Patient has questionable history of bipolar disorder, patient was seen by psychiatrist in the community may need years ago, had been seen by therapist in the past, most likely patient had untreated bipolar disorder, as well as paranoid personality disorder vs schizoaffective disorder. This information was obtained from the patient's sister, patient gave consent to speak to the sister while she was admitted on the medical side. patient denied history of suicidal attempts, denied history of being admitted to psychiatric inpatient unit. patient denied smoking, denied using drugs, denied drinking alcohol. Medical history: As per medical history report patient was started on Neurontin few weeks prior off hallucinations.Patient had urinary tract infection, was on antibiotics on the medical side, patient also has obesity, diabetes, hyperlipidemia, hypertension, hypothyroidism, medical consultation appreciated. Vital Signs Temp Pulse Pulse Resp BP 04/10/17 07:20 97.6 F 66 20 130/110 H 04/09/17 18:05 60 20 04/09/17 17:53 60 122/54 L over the course of this hospitalization pt was stabilized on the following medications: seroquel which was slowly titrated to 400mg po hs for psychosis pt tolerated it well, no side effects observed or reported, AIMS 0, no EPS. pt had one mechanical fall for what pt was sent for pelvic xr and head CT on april 15 pt also c/o back pain, for what pt was started on Ultram, pt did not tolerate ultram well, had hallucinations over night, medication was d/c immediately. for the past 48 hrs pt did not have any hallucinations. pt was seen by PT and was recommended [facility]. this senior medical writer attempted to speak to the pt's sister today, but voicemail was coming, this senior medical writer did not want to leave the info about patient because was not sure if it is a home line or cellphone. as per case management and SW, pt's sister and pt were in agreement with d/c plan, nurse outreach case manager spoke to the pt and pt was in agreement to go to [facility]. Overall pt improved significantly, psychosis is better, no paranoia, pt was socially appropriate, no behavioral issues, pts insight improved as well now pt is willing to have therapy and psychotropic medications. pt was in agreement to be seen by in the community (local psychiatrist). At the time of the discharge pt denied been depressed, denied thoughts of harming self or others, denied psychotic symptoms, and pt does not appeared to be psychotic, denied feeling anxious, pt is not in imminent danger to self or others, pt will be d/c to [facility], with recommendation to be f/u with psychiatrist at the [facility] within one week after discharge. after [facility] pt needs to be f/u with Dr.Paul Christianson [phone], pt is aware of this plan, information about follow up appointment, time and address provided to the pt, it is patient responsibility to follow up with outpatient clinic, PMD as well as specialists ( see SW note for more detailed information). In case pt will need to obtain results of studies pending at discharge pt was provided with contact information of Psychiatric Inpatient unit [phone] as well as Medical Record Department [phone]. pt needs to be continued on all of the medications (please see medication reconciliation form) Pt was educated about safety plan in case of worsening of symptoms or in case of suicidal or homicidal ideation call 911 or go to the nearest ER, also was educated to take meds as prescribed and stay away from drugs, pt verbalized understanding. - Diagnosis (1) Paranoid personality disorder Current Visit: Yes Status: Acute (2) Delirium due to another medical condition Current Visit: Yes Status: Acute - Final Diagnosis (DSM 5) Condition upon Discharge: GOOD DSM 5: r/o schizoaffective disorder r/o bipolar disorder with psychosis Disposition: HOME/ ROUTINE Follow-up Treatment Plan: At the time of the discharge pt denied been depressed, denied thoughts of harming self or others, denied psychotic symptoms, and pt does not appeared to be psychotic, denied feeling anxious, pt is not in imminent danger to self or others, pt will be d/c to [facility], with recommendation to be f/u with psychiatrist at the [facility] within one week after discharge. after [facility] pt needs to be f/u with Dr.Paul Christianson [phone], pt is aware of this plan, information about follow up appointment, time and address provided to the pt, it is patient responsibility to follow up with outpatient clinic, PMD as well as specialists ( see SW note for more detailed information). In case pt will need to obtain results of studies pending at discharge pt was provided with contact information of Psychiatric Inpatient unit [phone] as well as Medical Record Department [phone]. pt needs to be continued on all of the medications (please see medication reconciliation form) Pt was educated about safety plan in case of worsening of symptoms or in case of suicidal or homicidal ideation call 911 or go to the nearest ER, also was educated to take meds as prescribed and stay away from drugs, pt verbalized understanding. - Smoking Cessation Smoking Cessation Medication prescribed: No Reason for not providing: denied smoking - Antipsychotic Medications Pt discharged on 2 or more routine antipsychotic medications: No
[2017-04-19 17:15] VITALS: BP 127/61; PULSE 75
== END 2017-04-19 19:56 | DRG 883 ==
LOC: PSYC 15:32
PROVIDERS: ADMIT Psychiatry & Neurology Psychiatry; ATTEND Psychiatry & Neurology Psychiatry
PROC: GZ3ZZZZ Medication Management (ICD-10-PCS; principal; 2017-04-09)
DX: F60.0 Paranoid personality disorder (principal); F05 Delirium due to known physiological condition; E11.40 Type 2 diabetes mellitus with diabetic neuropathy, unspecified; I50.9 Heart failure, unspecified; I11.0 Hypertensive heart disease with heart failure; Z68.42 Body mass index [BMI] 45.0-49.9, adult; W18.2XXA Fall in (into) shower or empty bathtub, initial encounter; J44.9 Chronic obstructive pulmonary disease, unspecified; E78.5 Hyperlipidemia, unspecified; E03.9 Hypothyroidism, unspecified; I25.10 Atherosclerotic heart disease of native coronary artery without angina pectoris; E66.9 Obesity, unspecified; Y92.231 Patient bathroom in hospital as the place of occurrence of the external cause; Y93.E1 Activity, personal bathing and showering